=== PATIENT | female | born 1980 | race Caucasian/White ===

== ENCOUNTER → 2017-02-19 | Outpatient (CLI) | payer BC ==
[2017-02-19 10:39] LABS: ALBUMIN 3.8 GM/DL (3.2-5.2); ALBUMIN/GLOBULIN RATIO 1.19 (1.00-1.93); ALKALINE PHOSPHATASE 58 U/L (45-117); ALT/SGPT 28 U/L (12-78); ANION GAP 8 MEQ/L (8-16); AST/SGOT 25 U/L (15-37); BILIRUBIN,TOTAL 0.5 MG/DL (0.2-1.0); BLOOD UREA NITROGEN 15 MG/DL (7-18); CALCIUM LEVEL 8.9 MG/DL (8.5-10.1); CARBON DIOXIDE LEVEL 30 MEQ/L (21-32); CHLORIDE LEVEL 103 MEQ/L (98-107); CHOLESTEROL LEVEL 179 MG/DL (<200); CREATININE FOR GFR 0.78 MG/DL (0.55-1.02); GLOMERULAR FILTRATION RATE > 60.0 (>60); GLUCOSE, FASTING 83 MG/DL (70-105); POTASSIUM SERUM 4.5 MEQ/L (3.5-5.1); SODIUM LEVEL 141 MEQ/L (136-145); TRIGLYCERIDES LEVEL 77 MG/DL (<150)
--- NOTE | 2017-02-19 16:26 | REP ---
LUMBOSACRAL SPINE PARTIAL: 02/19/2017. Clinical history: Back pain. Findings: Three views including a coned lateral view of the lumbosacral junction are reviewed. The three views show disc space height only very minimally narrowed at L5-S1. There is no malalignment. The normal lordosis is slightly reduced. I see no compression deformity. The L4-5 disc level and above are maintained. No spondylolysis or spondylolisthesis seen. The AP view shows pedicles, spinous and transverse processes intact. Lower thoracic levels and visualized ribs intact. The SI joints show sclerosis on both sides suggesting osteitis condensans ilii , a benign finding in this age group. An IUD is seen in the central pelvis. Impression: 1. Minor degenerative disc changes at L5-S1 without compression deformity, destructive bone lesion or other acute bony finding. 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 Incidental note made of an IUD. Signed by Yamil Egan MD 02/19/2017 04:36 P
== END ==
LOC: M WUC 08:28
PROVIDERS: ATTEND Family Medicine Addiction Medicine
DX: Z00.00 Encounter for general adult medical examination without abnormal findings (principal); M51.37 Other intervertebral disc degeneration, lumbosacral region; M85.30 Osteitis condensans, unspecified site

== ENCOUNTER → 2017-02-25 | Outpatient (REF) | payer BC ==
[2017-02-25 12:13] LABS: BASO % 0.7 % (0.0-1.0); EOS # 0.1 K/mm3 (0.0-0.50); EOS % 1.4 % (0.0-3.0); LARGE UNSTAINED CELL # 0.1 K/mm3 (0.0-0.4); LARGE UNSTAINED CELL % 1.3 % (0.0-4.0); LYMPH # 1.8 K/mm3 (1.5-4.5); LYMPH % 31.5 % (24.0-44.0); MEAN CORPUSCULAR HEMOGLOBIN 29.8 pg (27.0-33.0); MEAN CORPUSCULAR HGB CONC 32.8 g/dl (32.0-36.5); MONO # 0.3 K/mm3 (0.0-0.8); MONO % 5.3 % (0.0-5.0); NEUTROPHILS # 3.3 K/mm3 (1.8-7.7); NEUTROPHILS % 59.9 % (36.0-66.0); PLATELET COUNT, AUTOMATED 336 k/mm3 (150-450); RED CELL DISTRIBUTION WIDTH 12.9 % (11.5-14.5); WHITE BLOOD COUNT 5.5 K/mm3 (4.0-10.0)
[2017-02-25 13:06] LABS: ERYTHROCYTE SEDIMENTATION RATE 33 mm/hr (0-20)
[2017-02-26 14:14] LABS: Lyme Disease IgG/IgM Antibodie <0.91 ISR (0.00-0.90); Lyme Disease IgM Ab Quantitati <0.80 index (0.00-0.79)
== END ==
LOC: M LABDRAW1 11:47
PROVIDERS: ATTEND Internal Medicine Endocrinology, Diabetes & Metabolism
DX: S83.92XA Sprain of unspecified site of left knee, initial encounter (principal); X58.XXXA Exposure to other specified factors, initial encounter; Y92.89 Other specified places as the place of occurrence of the external cause; Y93.89 Activity, other specified; Y99.8 Other external cause status

== ENCOUNTER → 2017-08-11 | Outpatient (REF) | payer BC ==
[2017-08-11 13:16] LABS: FOLATE 19.5 NG/ML (>5.4); VITAMIN B12 LEVEL 632 PG/ML (247-911)
[2017-08-11 13:18] LABS: BASO % 0.7 % (0.0-1.0); EOS # 0.1 10^3/uL (0.0-0.50); IMMATURE GRANULOCYTE % 0.2 % (0-0); LYMPH # 2.5 10^3/uL (1.5-4.5); LYMPH % 43.2 % (24.0-44.0); MEAN CORPUSCULAR HEMOGLOBIN 29.6 pg (27.0-33.0); MEAN CORPUSCULAR HGB CONC 33.1 g/dl (32.0-36.5); MEAN CORPUSCULAR VOLUME 89.5 fl (80.0-96.0); MONO # 0.4 10^3/uL (0.0-0.8); MONO % 6.9 % (0.0-5.0); NEUTROPHILS # 2.8 10^3/uL (1.8-7.7); RED CELL DISTRIBUTION WIDTH 12.9 % (11.5-14.5); WHITE BLOOD COUNT 5.8 10^3/uL (4.0-10.0)
[2017-08-11 13:25] LABS: INR 1.02
[2017-08-11 13:27] LABS: ALBUMIN 3.7 GM/DL (3.2-5.2); ALBUMIN/GLOBULIN RATIO 1.16 (1.00-1.93); ALKALINE PHOSPHATASE 54 U/L (45-117); ALT/SGPT 26 U/L (12-78); ANION GAP 8 MEQ/L (8-16); AST/SGOT 20 U/L (15-37); BILIRUBIN,TOTAL 0.6 MG/DL (0.2-1.0); BLOOD UREA NITROGEN 11 MG/DL (7-18); CALCIUM LEVEL 8.5 MG/DL (8.5-10.1); CARBON DIOXIDE LEVEL 25 MEQ/L (21-32); CHLORIDE LEVEL 106 MEQ/L (98-107); CREATININE FOR GFR 0.61 MG/DL (0.55-1.02); FERRITIN 191 NG/ML (8-252); FREE T4 1.23 NG/DL (0.76-1.46); GLOMERULAR FILTRATION RATE > 60.0 (>60); GLUCOSE, FASTING 88 MG/DL (70-105); POTASSIUM SERUM 3.9 MEQ/L (3.5-5.1); SODIUM LEVEL 139 MEQ/L (136-145); TOTAL PROTEIN 6.9 GM/DL (6.4-8.2)
[2017-08-12 12:47] LABS: ALBUMIN 4.13 GM/DL (3.29-5.55); ALBUMIN % 59.8 % (55.8-66.1); GAMMA GLOBULIN % 12.1 % (11.1-18.8)
[2017-08-13 14:15] LABS: F8 ACTIVITY FOR F8 PANEL 97 % (57-163); F8 ACTIVITY vWB FOR F8 PANEL 78 % (50-200); F8 ANTIGEN FOR F8 PANEL 105 % (50-200); INTERPRETATION: Note (.)
[2017-08-17 00:06] LABS: Lyme Disease IgG/IgM Antibodie <0.91 ISR (0.00-0.90); Lyme Disease IgM Ab Quantitati <0.80 index (0.00-0.79); vWF Collagen Binding Act.** 99 % (.)
== END ==
LOC: M LABDRAW1 10:29
PROVIDERS: ATTEND Physician Assistant Medical
DX: R53.83 Other fatigue (principal); M62.81 Muscle weakness (generalized); D69.1 Qualitative platelet defects

== ENCOUNTER → 2018-03-17 | Outpatient (CLI) | payer BC | LOC: M PAIN 10:00 | DX: M53.3 Sacrococcygeal disorders, not elsewhere classified (principal); M54.41 Lumbago with sciatica, right side; G89.29 Other chronic pain; J45.909 Unspecified asthma, uncomplicated; E07.9 Disorder of thyroid, unspecified; Z79.899 Other long term (current) drug therapy; Z88.0 Allergy status to penicillin; Z88.2 Allergy status to sulfonamides; Z88.5 Allergy status to narcotic agent | CPT/HCPCS: G0463 ==

== ENCOUNTER → 2018-03-30 | Outpatient (CLI) | payer BC | LOC: M RAD 08:09 | DX: M53.3 Sacrococcygeal disorders, not elsewhere classified (principal); M51.26 Other intervertebral disc displacement, lumbar region | CPT/HCPCS: 72148 ==

== ENCOUNTER → 2018-04-21 | Outpatient (CLI) | payer BC | LOC: M PAIN 08:45 | DX: M51.27 Other intervertebral disc displacement, lumbosacral region (principal); M54.17 Radiculopathy, lumbosacral region; G89.29 Other chronic pain; J45.909 Unspecified asthma, uncomplicated; Z79.899 Other long term (current) drug therapy; Z88.0 Allergy status to penicillin; Z88.2 Allergy status to sulfonamides; Z88.5 Allergy status to narcotic agent | CPT/HCPCS: G0463 ==

== ENCOUNTER → 2018-04-25 | Outpatient (REF) | payer BC | LOC: M LAB REF 18:38 | DX: Z12.4 Encounter for screening for malignant neoplasm of cervix (principal) | CPT/HCPCS: G0123 ==

== ENCOUNTER → 2018-05-17 | Outpatient (CLI) | payer BC ==
[~2018-05-17] MED LIST: ISOVUE-M 300 61% 15ML VIAL (Q9967) As Ordered; LIDOCAINE 1% SDV INJ 30 ML VIAL As Ordered; diazePAM 5 MG TAB As Ordered; methylPREDNISolone SUSP 40 MG/ML (DEPO-medrol) VIAL (J1030) As Ordered; oxyCODONE 5MG TAB As Ordered
== END ==
LOC: M PAIN 09:00
DX: M51.17 Intervertebral disc disorders with radiculopathy, lumbosacral region (principal); G89.29 Other chronic pain; J45.909 Unspecified asthma, uncomplicated; E07.9 Disorder of thyroid, unspecified; Z79.899 Other long term (current) drug therapy; Z88.2 Allergy status to sulfonamides; Z88.5 Allergy status to narcotic agent
CPT/HCPCS: J1030

== ENCOUNTER → 2018-06-07 | Outpatient (CLI) | payer BC | LOC: M PAIN 14:30 | DX: M51.27 Other intervertebral disc displacement, lumbosacral region (principal); M54.17 Radiculopathy, lumbosacral region; J45.909 Unspecified asthma, uncomplicated; Z79.899 Other long term (current) drug therapy; Z88.0 Allergy status to penicillin; Z88.5 Allergy status to narcotic agent; Z88.8 Allergy status to other drugs, medicaments and biological substances | CPT/HCPCS: G0463 ==

== ENCOUNTER → 2018-06-20 | Outpatient (CLI) | payer BC | LOC: M PAIN 10:15 | DX: G89.29 Other chronic pain (principal); M51.17 Intervertebral disc disorders with radiculopathy, lumbosacral region; J45.909 Unspecified asthma, uncomplicated; Z79.1 Long term (current) use of non-steroidal anti-inflammatories (NSAID); Z88.0 Allergy status to penicillin; Z88.2 Allergy status to sulfonamides; Z88.5 Allergy status to narcotic agent | CPT/HCPCS: J1030 ==

== ENCOUNTER → 2018-07-21 | Outpatient (CLI) | payer BC | LOC: M PAIN 09:30 | DX: M79.1 Myalgia (principal); M51.27 Other intervertebral disc displacement, lumbosacral region; M54.17 Radiculopathy, lumbosacral region; J45.909 Unspecified asthma, uncomplicated; E07.9 Disorder of thyroid, unspecified; Z79.899 Other long term (current) drug therapy; Z88.0 Allergy status to penicillin; Z88.2 Allergy status to sulfonamides; Z88.5 Allergy status to narcotic agent | CPT/HCPCS: G0463 ==

== ENCOUNTER → 2018-08-29 | Outpatient (CLI) | payer BC | LOC: M PAIN 10:00 | DX: M79.18 Myalgia, other site (principal); M51.27 Other intervertebral disc displacement, lumbosacral region; M54.17 Radiculopathy, lumbosacral region; J45.909 Unspecified asthma, uncomplicated; Z79.899 Other long term (current) drug therapy; Z88.0 Allergy status to penicillin; Z88.2 Allergy status to sulfonamides; Z88.5 Allergy status to narcotic agent | CPT/HCPCS: G0463 ==

== ENCOUNTER → 2018-08-30 | Outpatient (CLI) | payer BC | LOC: M PAIN 08:45 | DX: G89.29 Other chronic pain (principal); M51.16 Intervertebral disc disorders with radiculopathy, lumbar region; J45.909 Unspecified asthma, uncomplicated; Z79.899 Other long term (current) drug therapy; Z88.0 Allergy status to penicillin; Z88.2 Allergy status to sulfonamides; Z88.5 Allergy status to narcotic agent; Z86.39 Personal history of other endocrine, nutritional and metabolic disease | CPT/HCPCS: J1030 ==

== ENCOUNTER → 2018-08-31 | Outpatient (CLI) | payer BC | LOC: M PAIN 11:30 | DX: Z53.29 Procedure and treatment not carried out because of patient's decision for other reasons (principal) ==

== ENCOUNTER → 2018-09-15 | Outpatient (CLI) | payer BC | LOC: M PAIN 08:30 | DX: M79.18 Myalgia, other site (principal); M51.17 Intervertebral disc disorders with radiculopathy, lumbosacral region; J45.909 Unspecified asthma, uncomplicated; E07.9 Disorder of thyroid, unspecified; Z88.0 Allergy status to penicillin; Z88.2 Allergy status to sulfonamides; Z88.5 Allergy status to narcotic agent | CPT/HCPCS: G0463 ==

== ENCOUNTER → 2018-10-07 | Outpatient (REF) | payer BC ==
[2018-10-07 13:12] LABS: APPEARANCE, URINE HAZY (CLEAR); BACTERIA, URINE AUTO 2+ (NEGATIVE); BILIRUBIN, URINE AUTO NEGATIVE (NEGATIVE); BLOOD, URINE BLOOD 2+ (NEGATIVE); COLOR, URINE YELLOW (YELLOW); GLUCOSE, URINE (UA) AUTO NEGATIVE (NEGATIVE); KETONE, URINE AUTO 1+ mg/dL (NEGATIVE); LEUKOCYTE ESTERASE, URINE AUTO NEGATIVE (NEGATIVE); MUCUS, URINE SMALL (NEGATIVE); NITRITE, URINE AUTO NEGATIVE (NEGATIVE); PROTEIN, URINE AUTO NEGATIVE (NEGATIVE); RBC, URINE AUTO 7 /HPF (0-3); SPECIFIC GRAVITY URINE AUTO 1.019 (1.002-1.035); SQUAMOUS EPITHELIAL CELL UR AU 4 /HPF (0-6); UROBILINOGEN, URINE AUTO 0.2 mg/dL (0.0-2.0); WBC, URINE AUTO 1 /HPF (0-3)
== END ==
LOC: M SFHCPLAZ 12:13
DX: N31.9 Neuromuscular dysfunction of bladder, unspecified (principal)
CPT/HCPCS: 81001

== ENCOUNTER → 2018-11-15 | Outpatient (CLI) | payer BC ==
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
== END ==
LOC: M PAIN 10:00
PROVIDERS: ATTEND Nurse Practitioner Family
DX: M79.10 Myalgia, unspecified site (principal); M51.27 Other intervertebral disc displacement, lumbosacral region; M54.17 Radiculopathy, lumbosacral region; G89.29 Other chronic pain; J45.909 Unspecified asthma, uncomplicated; E66.01 Morbid (severe) obesity due to excess calories; Z79.899 Other long term (current) drug therapy; Z79.891 Long term (current) use of opiate analgesic; Z68.36 Body mass index [BMI] 36.0-36.9, adult; Z88.0 Allergy status to penicillin; Z88.2 Allergy status to sulfonamides; Z88.5 Allergy status to narcotic agent

== ENCOUNTER → 2018-11-24 | Outpatient (CLI) | payer BC ==
[~2018-11-24] MED LIST changes: -ISOVUE-M 300 61% 15ML VIAL (Q9967) As Ordered; +ISOVUE-M 300 61% 15ML VIAL (Q9967) As Ordered ONE; -LIDOCAINE 1% SDV INJ 30 ML VIAL As Ordered; +LIDOCAINE 1% SDV INJ 30 ML VIAL As Ordered ONE; -diazePAM 5 MG TAB As Ordered; +diazePAM 5 MG TAB As Ordered ONE; -methylPREDNISolone SUSP 40 MG/ML (DEPO-medrol) VIAL (J1030) As Ordered; +methylPREDNISolone SUSP 40 MG/ML (DEPO-medrol) VIAL (J1030) As Ordered ONE; -oxyCODONE 5MG TAB As Ordered; +oxyCODONE 5MG TAB As Ordered ONE
--- NOTE | 2018-11-24 12:52 | REP ---
Partial lumbar spine series: Three views . History: Injection procedure for pain. Eight seconds of fluoroscopy time is reported. Findings: A sequence of three fluoroscopically obtained last image hold procedural spot radiographs of the lumbar spine document needle position and contrast injection associated with injection procedure. Electronically Signed by Raymond Crooks MD 11/24/2018 12:44 P
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
== END ==
LOC: M PAIN 09:00
PROVIDERS: ATTEND Anesthesiology
DX: G89.29 Other chronic pain (principal); M51.17 Intervertebral disc disorders with radiculopathy, lumbosacral region; J45.909 Unspecified asthma, uncomplicated; Z79.891 Long term (current) use of opiate analgesic; Z79.899 Other long term (current) drug therapy; Z88.0 Allergy status to penicillin; Z88.2 Allergy status to sulfonamides; Z88.5 Allergy status to narcotic agent
CPT/HCPCS: 62323; J1030; Q9967

== ENCOUNTER → 2019-01-12 | Outpatient (CLI) | payer BC ==
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
== END ==
LOC: M PAIN 10:45
PROVIDERS: ATTEND Nurse Practitioner Family
DX: M79.18 Myalgia, other site (principal); M51.27 Other intervertebral disc displacement, lumbosacral region; M54.17 Radiculopathy, lumbosacral region; J45.909 Unspecified asthma, uncomplicated; Z79.899 Other long term (current) drug therapy; Z88.0 Allergy status to penicillin; Z88.2 Allergy status to sulfonamides; Z88.5 Allergy status to narcotic agent

== ENCOUNTER → 2019-01-30 | Outpatient (CLI) | payer BC ==
[~2019-01-30] MED LIST changes: +BUPIVACAINE HCL 0.25% 10 ML VIAL As Ordered ONE; +BUPIVACAINE HCL 0.25% 30 ML VIAL As Ordered ONE; -ISOVUE-M 300 61% 15ML VIAL (Q9967) As Ordered ONE; -LIDOCAINE 1% SDV INJ 30 ML VIAL As Ordered ONE; +TRIAMCINOLONE ACETONIDE SUSP 40 MG/ML VIAL (J3301) As Ordered ONE; -methylPREDNISolone SUSP 40 MG/ML (DEPO-medrol) VIAL (J1030) As Ordered ONE
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
== END ==
LOC: M PAIN 09:15
PROVIDERS: ATTEND Anesthesiology
DX: M79.18 Myalgia, other site (principal); Z79.891 Long term (current) use of opiate analgesic; Z88.5 Allergy status to narcotic agent; Z88.0 Allergy status to penicillin; Z88.2 Allergy status to sulfonamides
CPT/HCPCS: 20552; J3301

== ENCOUNTER → 2019-02-13 | Outpatient (CLI) | payer BC ==
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
== END ==
LOC: M PAIN 14:30
PROVIDERS: ATTEND Anesthesiology
DX: M51.16 Intervertebral disc disorders with radiculopathy, lumbar region (principal); G89.29 Other chronic pain; J45.909 Unspecified asthma, uncomplicated; Z79.891 Long term (current) use of opiate analgesic; Z79.899 Other long term (current) drug therapy; Z88.0 Allergy status to penicillin; Z88.2 Allergy status to sulfonamides; Z88.5 Allergy status to narcotic agent

== ENCOUNTER → 2019-03-01 | Outpatient (CLI) | payer BC ==
[~2019-03-01] MED LIST changes: -BUPIVACAINE HCL 0.25% 10 ML VIAL As Ordered ONE; -BUPIVACAINE HCL 0.25% 30 ML VIAL As Ordered ONE; +HYDR-3713; -TRIAMCINOLONE ACETONIDE SUSP 40 MG/ML VIAL (J3301) As Ordered ONE; -diazePAM 5 MG TAB As Ordered ONE; -oxyCODONE 5MG TAB As Ordered ONE
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
== END ==
LOC: M PAIN 10:15
PROVIDERS: ATTEND Nurse Practitioner Family
DX: M46.1 Sacroiliitis, not elsewhere classified (principal); M51.27 Other intervertebral disc displacement, lumbosacral region; G89.29 Other chronic pain; J45.909 Unspecified asthma, uncomplicated; Z88.0 Allergy status to penicillin; Z88.2 Allergy status to sulfonamides; Z88.5 Allergy status to narcotic agent; Z79.891 Long term (current) use of opiate analgesic; Z79.899 Other long term (current) drug therapy

== ENCOUNTER 2019-03-09 16:19 | Emergency (ER) | payer BC ==
[~2019-03-09] VITALS: Ht 160 cm; Wt 89.1 kg
[2019-03-09] MEDS ORDERED: HYDR-3713 (16:27)
[2019-03-09] MEDS ORDERED: PROMETHAZINE INJ 25 MG/ML VIAL (J2550) IM ONE (17:00)
[2019-03-09] MEDS ORDERED: diazePAM 10 MG TAB PO ONE (17:00)
[2019-03-09] MEDS ORDERED: KETOROLAC 60 MG/2 ML VIAL (J1885) IM ONE (17:00)
[2019-03-09 18:28] VITALS: BP 138/75
== END 2019-03-09 18:41 | disposition home or self-care (01) ==
LOC: M ED 16:19
DX: M54.5 Low back pain (principal); Z88.0 Allergy status to penicillin; Z88.2 Allergy status to sulfonamides; Z88.5 Allergy status to narcotic agent
CPT/HCPCS: 96372; 99283; J1885

== ENCOUNTER → 2019-03-09 | Outpatient (CLI) | payer BC ==
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
== END ==
LOC: M PAIN 14:30
PROVIDERS: ATTEND Nurse Practitioner Family
DX: M46.1 Sacroiliitis, not elsewhere classified (principal); M51.27 Other intervertebral disc displacement, lumbosacral region; J45.909 Unspecified asthma, uncomplicated; Z88.0 Allergy status to penicillin; Z88.2 Allergy status to sulfonamides; Z88.5 Allergy status to narcotic agent; Z79.891 Long term (current) use of opiate analgesic; Z79.899 Other long term (current) drug therapy

== ENCOUNTER → 2019-03-23 | Outpatient (CLI) | payer BC ==
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
== END ==
LOC: M PAIN 09:00
PROVIDERS: ATTEND Nurse Practitioner Family
DX: M46.1 Sacroiliitis, not elsewhere classified (principal); G89.29 Other chronic pain; J45.909 Unspecified asthma, uncomplicated; Z79.891 Long term (current) use of opiate analgesic; Z79.899 Other long term (current) drug therapy; Z88.0 Allergy status to penicillin; Z88.2 Allergy status to sulfonamides; Z88.5 Allergy status to narcotic agent

== ENCOUNTER → 2019-03-24 | Outpatient (CLI) | payer BC ==
--- NOTE | 2019-03-24 16:20 | REP ---
MR THORACIC SPINE WITHOUT CONTRAST: HISTORY: Sacroiliitis. A small central disc protrusion is present at the T7-8 level. There is minimal effacement of the thecal sac without spinal cord compression. The T7 neural foramina are patent. A small left paracentral disc protrusion is present at the T8-9 level. There is minimal effacement of the thecal sac without spinal cord compression. The T8 neural foramina are patent. A small left paracentral disc protrusion is present at the T9-10 level. There is minimal effacement of the thecal sac without spinal cord compression. The T9 neural foramina are patent. A small left paracentral disc protrusion is present at the T11-12 level. There is minimal effacement of the thecal sac without spinal cord compression. The T11 neural foramina are patent. There is no other disc bulge or herniation. The remaining neural foramina are patent. The spinal cord is normal in signal intensity. Normal signal intensity is present in the thoracic vertebral bodies. Anterior osteophytes are present in the lower thoracic spine. IMPRESSION: Small disc protrusion at the T7-8 through T9-10 and T11-12 levels without spinal cord compression. Electronically Signed by Jim Lopez MD 03/24/2019 04:21 P
--- NOTE | 2019-03-24 16:38 | REP ---
MR LUMBAR SPINE WITHOUT CONTRAST: HISTORY: Back pain. COMPARISON: 03/30/2018. Decreased signal intensity on T2-weighted images is present in the L1-2 and L5-S1 intervertebral discs. The L5-S1 intervertebral disc is decreased in height. These findings are consistent with disc degeneration. There is no disc bulge or herniation at the L1-2 level and L2-3 levels. The nerves exit the neural foramina without compression. A diffuse disc bulge is present at the L3-4 level. There is minimal compression of the thecal sac. There is hypertrophy of ligamenta flava and posterior articulating facets. The L3 nerves exit the neural foramina without compression. A diffuse disc bulge is present at the L4-5 level. There is minimal compression of the thecal sac. There is hypertrophy of the ligamenta flava and posterior articulating facets. The L4 nerves exit the neural foramina without compression. A diffuse disc bulge and small disc protrusion central and eccentric to the left are present at the L5-S1 level. There is no thecal sac compression. The disc protrusion abuts the left S1 nerve. There is hypertrophy of the posterior articulating facets. The L5 nerves exit the neural foramina without compression. The left L5 and S1 nerves are conjoined. The conus medullaris is normal in appearance terminating at the level of the T12-L1 intervertebral discs . Normal signal intensity is present in the lumbar vertebral bodies. IMPRESSION: 1. Diffuse disc bulges at the L3-4 and L4-5 levels with minimal thecal sac compression. 2. Diffuse disc bulge and small disc protrusion at the L5-S1 level. The disc protrusion abuts the left S1 nerve. There is no significant change compared to the previous study. Electronically Signed by Jim Lopez MD 03/24/2019 04:40 P
== END ==
LOC: M PLARAD 11:13
PROVIDERS: ATTEND Nurse Practitioner Family
DX: M51.26 Other intervertebral disc displacement, lumbar region (principal); M51.27 Other intervertebral disc displacement, lumbosacral region; M46.1 Sacroiliitis, not elsewhere classified; M51.24 Other intervertebral disc displacement, thoracic region

== ENCOUNTER → 2019-04-04 | Outpatient (CLI) | payer BC ==
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
== END ==
LOC: M PAIN 11:30
PROVIDERS: ATTEND Nurse Practitioner Family
DX: M51.17 Intervertebral disc disorders with radiculopathy, lumbosacral region (principal); G89.29 Other chronic pain; J45.909 Unspecified asthma, uncomplicated; Z88.0 Allergy status to penicillin; Z88.2 Allergy status to sulfonamides; Z88.5 Allergy status to narcotic agent; Z79.899 Other long term (current) drug therapy

== ENCOUNTER → 2019-05-01 | Outpatient (CLI) | payer BC ==
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
== END ==
LOC: M PAIN 15:45
PROVIDERS: ATTEND Anesthesiology
DX: M51.16 Intervertebral disc disorders with radiculopathy, lumbar region (principal); J45.909 Unspecified asthma, uncomplicated; E07.9 Disorder of thyroid, unspecified; Z79.899 Other long term (current) drug therapy; Z88.0 Allergy status to penicillin; Z88.2 Allergy status to sulfonamides; Z88.5 Allergy status to narcotic agent

== ENCOUNTER → 2019-06-02 | Outpatient (CLI) | payer BC ==
[~2019-06-02] MED LIST changes: +CARI1TAB7 PO; -HYDR-3713; +HYDR-3713 PO
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
== END ==
LOC: M PAIN 08:30
PROVIDERS: ATTEND Anesthesiology
DX: M51.16 Intervertebral disc disorders with radiculopathy, lumbar region (principal); G89.29 Other chronic pain; J45.909 Unspecified asthma, uncomplicated; Z88.0 Allergy status to penicillin; Z88.2 Allergy status to sulfonamides; Z88.5 Allergy status to narcotic agent; Z79.899 Other long term (current) drug therapy

== ENCOUNTER → 2019-06-09 | Outpatient (CLI) | payer BC ==
[2019-06-09 09:42] LABS: BLOOD UREA NITROGEN 15 MG/DL (7-18); CALCIUM LEVEL 8.6 MG/DL (8.5-10.1); CARBON DIOXIDE LEVEL 29 MEQ/L (21-32); CHLORIDE LEVEL 108 MEQ/L (98-107); CHOLESTEROL LEVEL 195 MG/DL (<200); CHOLESTEROL RISK RATIO 3.611 (<5); CREATININE FOR GFR 0.74 MG/DL (0.55-1.30); GLOMERULAR FILTRATION RATE > 60.0 (>60); GLUCOSE, FASTING 83 MG/DL (70-100); HDL CHOLESTEROL 54 MG/DL (>40); LDL CHOLESTEROL 129 MG/DL (<100); NON-HDL-C 141 MG/DL; POTASSIUM SERUM 4.3 MEQ/L (3.5-5.1); SODIUM LEVEL 142 MEQ/L (136-145); TRIGLYCERIDES LEVEL 61 MG/DL (<150)
== END ==
LOC: M WUC 08:13
PROVIDERS: ATTEND Obstetrics & Gynecology
DX: Z13.220 Encounter for screening for lipoid disorders (principal); Z13.1 Encounter for screening for diabetes mellitus

== ENCOUNTER 2019-06-19 05:47 | Day surgery (SDC) | payer BC ==
[2019-06-19] VITALS (9 sets, daily range): BP systolic 114–131; BP diastolic 56–70
[~2019-06-19] VITALS: Ht 160 cm; Wt 89.8 kg
[2019-06-19] MEDS ORDERED: CLINDAMYCIN 600 MG in APPROPRIATE DILUENT 1 EA IV ONE (06:00)
[2019-06-19] MEDS ORDERED: LR 1,000 ML IV ONE (06:00)
[2019-06-19 06:44] LABS: URINE PREG TEST NEGATIVE (NEGATIVE)
[2019-06-19] MEDS ORDERED: BUPIVACAINE HCL 0.25% 30 ML VIAL As Ordered ONE (06:50)
[2019-06-19] MEDS ORDERED: ISOVUE-300 61% 50ML VIAL (Q9967) As Ordered ONE (06:51)
[2019-06-19] MEDS ORDERED: LIDOCAINE W/EPINEPHRINE 1% 20ML VIAL As Ordered ONE ×2 (06:51→08:26)
[2019-06-19] MEDS ORDERED: MIDAZOLAM INJ 2 MG/2 ML VIAL (J2250) As Ordered ONE ×2 (07:06→08:23)
[2019-06-19] MEDS ORDERED: fentaNYL 100 MCG/2 ML INJECTION (J3010) As Ordered ONE (07:06)
[2019-06-19] MEDS ORDERED: PROPOFOL 200 MG/20 ML VIAL As Ordered ONE (07:11)
[2019-06-19] MEDS ORDERED: LIDOCAINE 1% MDV 20ML VIAL As Ordered ONE (08:24)
[2019-06-19] MEDS ORDERED: ONDANSETRON 4MG/2ML VIAL (J2405) As Ordered ONE (08:39)
[2019-06-19] MEDS ORDERED: CARISOPRODOL 350 MG TAB PO PRN (10:30)
[2019-06-19] MEDS ORDERED: SLF 3 ML SYR IV PRN (10:30)
--- NOTE | 2019-06-19 10:35 | REP ---
PARTIAL THORACIC SPINE SERIES: Two views. HISTORY: Lumbar disc disorder with radiculopathy. 5 minutes 5 seconds of fluoroscopy time is reported. FINDINGS: A sequence of two last image hold fluoroscopically obtained spot radiographs of the thoracic spine document dorsal column stimulator lead position. Electronically Signed by Raymond Crooks MD 06/19/2019 04:47 P
[2019-06-19] MEDS: oxyCODONE 5MG TAB PO PRN ×2 (12:44→20:22)
[2019-06-19] MEDS: CLINDAMYCIN 600 MG in APPROPRIATE DILUENT 1 EA IV SCH ×2 (15:32→23:26)
[2019-06-19] MEDS: SLF 3 ML SYR IV SCH ×2 (15:32→21:52)
--- NOTE | 2019-06-19 16:35 | CR.PDOC ---
General Date of Consultation: Jun 19, 2019 Referring Provider: SWATHI MYERS MD Attending Physician: Maximus Larry MD Consultation REASON FOR CONSULTATION/CHIEF COMPLAINT: . Management of medical comorbidities. HISTORY OF PRESENT ILLNESS: . 38-year-old female with chronic back pain admitted under the pain management service following a dorsal column stimulator trial. The hospitalist service has been consulted for management of the patient's medical comorbidities. She denies any complaints of fevers, chills, chest pain, abdominal pain, or any nausea/vomiting/diarrhea. ALLERGIES: Please see below. HOME MEDICATIONS: Please see below. SOCIAL HISTORY: Patient denies any alcohol, tobacco, or illicit drug use. REVIEW OF SYSTEMS: 10 point review of systems negative unless otherwise specified in HPI. PHYSICAL EXAMINATION: VITAL SIGNS: Please see below. GENERAL APPEARANCE: . Awake, alert, in no acute distress HEENT: . Normocephalic, atraumatic RESPIRATORY: . Clear to auscultation bilaterally CARDIOVASCULAR: . Normal rate, normal S1, S2 ABDOMEN: . Soft, nontender, nondistended EXTREMITIES: . No erythema, no tenderness LABORATORY DATA: Please see below. ASSESSMENT/PLAN: Chronic back pain status post dorsal column stimulator placement Pain management as per Dr. Calixto Vital Signs/I&O Vital Signs Date Time Temp Pulse Resp B/P (MAP) Pulse Ox O2 Delivery O2 Flow Rate FiO2 06/19/19 15:00 98.1 77 18 131/66 (87) 97 Laboratory Data Labs 24H Laboratory Tests 2 06/19/19 06:33: Urine Test NEGATIVE Allergies Coded Allergies: Penicillins (Verified Allergy, Severe, anaphylaxis, 06/19/19) Sulfa (Sulfonamide Antibiotics) (Verified Allergy, Severe, anaphylaxis, 06/19/19) morphine (Verified Adverse Reaction, Unknown, severe n/v, 06/19/19) Home Medications Scheduled Carisoprodol (Carisoprodol) 350 Mg Tablet, 175 TAB PO Q8H, (Reported) Hydrocodone/Acetaminophen (Hydrocodone-Acetamin 5-325 mg) 1 Each Tablet, 1 TAB PO TID, (Reported) SWATHI MYERS MD Jun 19, 2019 16:35
[2019-06-20 04:08] VITALS: BP 97/53
[2019-06-20] MEDS: SLF 3 ML SYR IV SCH (05:37)
[2019-06-20 07:09] VITALS: BP 132/62
[2019-06-20] MEDS: oxyCODONE 5MG TAB PO PRN (08:43)
--- NOTE | 2019-06-29 22:05 | ROPAIN ---
DATE OF PROCEDURE: 06/19/2019 PREOPERATIVE DIAGNOSIS: Lumbar disk disorder with radiculopathy. POSTOPERATIVE DIAGNOSIS: Lumbar disk disorder with radiculopathy. PROCEDURE: Spinal column stimulator trial ANESTHESIA: Local with monitored anesthesia care SURGEON : Maximus Calixto MD PREOPERATIVE NOTE: Ms. Dunham is a 38-year-old female patient with history of chronic low back and leg pain. She has been receiving intervention management on medication; but unfortunately, the pain has persists. The patient has expressed that she wants a spinal column stimulator trial. She is sent to the operating room today for such purpose. The patient denies fever, chills, new changes in her urinary and bowel control. PROCEDURE NOTE: Consent was reviewed with the patient. She was taken to the procedure room. She received clindamycin 600 mg IV. The thoracolumbar area was cleaned with Betadine solution and draped aseptically sterile conditions. Anesthesia was provided by the anesthesia providers with local and monitor anesthesia care. After the patient was draped, procedure was done under sterile standard techniques. First target was elected at the intraluminal level of T12-L1. The epidural Tuohy needle was advanced until the epidural space was reached, 7 cm deep into the skin by the loss of resistant technique. Then a 16 contact lead from [employer] was advanced through the posteromedial aspect of the epidural space and placed at the level of T6 to T8. A decision was made to place a second lead. Target was selected at this time by L1, L2. Local anesthesia was used to numb the skin and the tissue below it. A second Touhy needle was advanced until the epidural space was reached again 7 cm deep into the skin by the loss of resistant technique. A second 16 contact lead from [employer] was advanced at the posteromedial aspect of epidural space until we reached the level again of T6 to T8, both leads were placed parallel. Extension cables were attached to the computer system [employer]. I started to do programming. It was a simple program. It lasted like half an hour where I changed to contact use, position of the leads, voltage used. The final position where the patient was having appropriate stimulation was at T6, T7 and T8, AP and lateral views were taken and kept by the electronic medical records for future reference. I removed the extension cables, I removed the stylets. I safely put the leads attached to the patient's skin with Steri-strip and Opsite Tegaderm The patient was sent to the recovery room. Trial is going to start today. There were no complications.
== END 2019-06-20 08:50 | disposition home or self-care (01) ==
LOC: M SDC 05:47 → M PED 10:20 → M SDC 06-20 08:50
PROVIDERS: ATTEND Anesthesiology
DX: M51.16 Intervertebral disc disorders with radiculopathy, lumbar region (principal); J45.909 Unspecified asthma, uncomplicated; Z79.899 Other long term (current) drug therapy; Z88.0 Allergy status to penicillin; Z88.2 Allergy status to sulfonamides; Z88.8 Allergy status to other drugs, medicaments and biological substances
CPT/HCPCS: 63650; 76000; 84703; 96374; 96376; C1778; J2250; J2405; J3010

== ENCOUNTER → 2019-06-22 | Outpatient (CLI) | payer BC ==
--- NOTE | 2019-06-22 16:56 | REP ---
Thoracolumbar spine: Two views: History: Dorsal column stimulator try. Lead pole. 5.8 seconds of fluoroscopy time reported. Findings: A sequence of two last image hold fluoroscopically obtained spot radiographs of the lower thoracic spine document dorsal column stimulator lead position. Electronically Signed by Raymond Crooks MD 06/22/2019 05:42 P
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
== END ==
LOC: M PAIN 12:00
PROVIDERS: ATTEND Anesthesiology
DX: M51.16 Intervertebral disc disorders with radiculopathy, lumbar region (principal); Z79.891 Long term (current) use of opiate analgesic; Z79.899 Other long term (current) drug therapy; Z88.0 Allergy status to penicillin; Z88.2 Allergy status to sulfonamides; Z88.5 Allergy status to narcotic agent

== ENCOUNTER → 2019-07-20 | Outpatient (CLI) | payer BC ==
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
== END ==
LOC: M PAIN 15:15
PROVIDERS: ATTEND Anesthesiology
DX: M51.16 Intervertebral disc disorders with radiculopathy, lumbar region (principal); J45.909 Unspecified asthma, uncomplicated; E07.9 Disorder of thyroid, unspecified; Z79.891 Long term (current) use of opiate analgesic; Z79.899 Other long term (current) drug therapy; Z88.2 Allergy status to sulfonamides; Z88.5 Allergy status to narcotic agent; Z88.0 Allergy status to penicillin

== ENCOUNTER → 2019-07-26 | Outpatient (CLI) | payer BC | LOC: M PAIN 10:45 | PROVIDERS: ATTEND Nurse Practitioner Family | DX: M51.17 Intervertebral disc disorders with radiculopathy, lumbosacral region (principal); G89.29 Other chronic pain; J45.909 Unspecified asthma, uncomplicated; Z88.0 Allergy status to penicillin; Z88.2 Allergy status to sulfonamides; Z88.5 Allergy status to narcotic agent; Z79.899 Other long term (current) drug therapy ==

== ENCOUNTER → 2019-09-13 | Outpatient (CLI) | payer BC ==
[~2019-09-13] MED LIST changes: +ALEV220T22 PO
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
== END ==
LOC: M PAIN 09:00
PROVIDERS: ATTEND Anesthesiology
DX: M51.17 Intervertebral disc disorders with radiculopathy, lumbosacral region (principal); G89.29 Other chronic pain; J45.909 Unspecified asthma, uncomplicated; Z88.0 Allergy status to penicillin; Z88.2 Allergy status to sulfonamides; Z88.5 Allergy status to narcotic agent; Z79.899 Other long term (current) drug therapy

== ENCOUNTER → 2019-09-21 | Outpatient (CLI) | payer BC ==
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
== END ==
LOC: M PAIN 08:45
PROVIDERS: ATTEND Anesthesiology
DX: M51.17 Intervertebral disc disorders with radiculopathy, lumbosacral region (principal)

== ENCOUNTER 2019-09-25 07:54 | Day surgery (SDC) | payer BC ==
[~2019-09-25] VITALS: Ht 160 cm; Wt 83.5 kg
[2019-09-25] VITALS (8 sets, daily range): BP systolic 107–136; BP diastolic 51–71
[~2019-09-25 07:54] MED LIST changes: +BACITRACIN PWD 50,000 UNITS VIAL As Ordered ONE; +CLINDAMYCIN 600 MG in IV 1 EA IV ONE; +LIDOCAINE 1% MDV 20ML VIAL As Ordered ONE; +LIDOCAINE 2% INJ 100 MG/5 ML SDV (FOR ANES.) As Ordered ONE; +LR 1,000 ML IV SCH; +MIDAZOLAM INJ 2 MG/2 ML VIAL (J2250) As Ordered ONE; +ONDANSETRON 4MG/2ML VIAL (J2405) As Ordered ONE; +PROPOFOL 200 MG/20 ML VIAL As Ordered ONE; +THROMBIN SOLN 20,000 UNITS KIT As Ordered ONE; +fentaNYL 100 MCG/2 ML INJECTION (J3010) As Ordered ONE
[2019-09-25] MEDS ORDERED: KETAMINE HCL 200 MG/20 ML VIAL As Ordered ONE (09:18)
[2019-09-25] MEDS ORDERED: BUPIVACAINE HCL 0.25% 10 ML VIAL As Ordered ONE (09:59)
[2019-09-25] MEDS ORDERED: BUPIVACAINE HCL 0.25% 30 ML VIAL As Ordered ONE (10:00)
[2019-09-25] MEDS ORDERED: LIDOCAINE W/EPINEPHRINE 1% 20ML VIAL As Ordered ONE ×2 (10:00→11:01)
[2019-09-25] MEDS ORDERED: PROPOFOL 200 MG/20 ML VIAL As Ordered ONE ×8 (10:36→14:30)
[2019-09-25] MEDS ORDERED: ACETAMINOPHEN 1000MG 100ML IV BTL (OFIRMEV) (J0131 PER 10MG) As Ordered ONE (10:40)
[2019-09-25] MEDS ORDERED: fentaNYL 100 MCG/2 ML INJECTION (J3010) As Ordered ONE ×2 (11:09→12:31)
[2019-09-25] MEDS ORDERED: CLINDAMYCIN INJ 900MG/6ML VIAL As Ordered ONE (13:22)
[2019-09-25] MEDS ORDERED: ONDANSETRON 4MG/2ML VIAL (J2405) As Ordered ONE (13:22)
[2019-09-25] MEDS ORDERED: dexameTHASONE 4 MG/ML 1ML VIAL (J1100) As Ordered ONE (13:26)
--- NOTE | 2019-09-25 14:09 | REP ---
Five fluoroscopic images new: 09/25/2019. Indication: Operative guidance. Comparison: 06/22/2019. Findings: A series of fluoroscopic images demonstrates interval insertion of a spinal cord stimulator with the distal leads extending from the inferior aspect of T6 to the T8/T9 intervertebral disc level. Please see operative report for additional details. Impression: Fluoroscopy provided for intraoperative guidance. Fluoroscopy time: 12:51, dose 391,85 mGy Electronically Signed by Nathan Mcgee DO 09/25/2019 02:01 P
[2019-09-25] MEDS ORDERED: HYDROmorphone HCL 2 MG/ML 1ML VIAL (J1170) As Ordered ONE (14:54)
[2019-09-25] MEDS ORDERED: CLINDAMYCIN 600 MG in IV 1 EA IV ONE ×4 (15:30)
[2019-09-25] MEDS ORDERED: oxyCODONE 5MG TAB PO PRN ×2 (15:30→16:00)
[2019-09-25] MEDS ORDERED: METOCLOPRAMIDE INJ 10MG/2ML VIAL (J2765) As Ordered ONE (15:47)
[2019-09-25] MEDS ORDERED: SCOPOLAMINE 1MG TRANSDERMAL PATCH As Ordered ONE (15:47)
[2019-09-25] MEDS ORDERED: LR 1,000 ML IV SCH (16:00)
[2019-09-25] MEDS ORDERED: ONDANSETRON 4MG/2ML VIAL (J2405) IV PRN (16:00)
[2019-09-25] MEDS ORDERED: fentaNYL 100 MCG/2 ML INJECTION (J3010) IV PRN (16:00)
[2019-09-25] MEDS ORDERED: SCOPOLAMINE 1MG TRANSDERMAL PATCH TOP ONE (16:00)
[2019-09-25] MEDS ORDERED: METOCLOPRAMIDE INJ 10MG/2ML VIAL (J2765) IV PRN (16:00)
--- NOTE | 2019-09-25 17:45 | CR.PDOC ---
General Date of Consultation: Sep 25, 2019 Consultation CHIEF COMPLAINT: back pain HISTORY OF PRESENT ILLNESS: Patient is 39F with PMH chronic back pain 2/2 OA, spinal stenosis and herniated disc being observed overnight post dorsal spinal cord stimulator placement by pain management. She has had ongoing back pain for an extended period of time leading to significant impairment at home. She has no other significant PMH apart from known LBBB and takes opiates at home for back pain. She is currently comfortable but reports some back discomfort with movement. Denies other compla ints including chest pain, SOB, fever, chills. PAST MEDICAL HISTORY: Refer to HPI PAST SURGICAL HISTORY: D and C x2 C section x2 Spinal stimulator placement Tonsillectomy SOCIAL HISTORY: Denies tobacco, alcohol or illicit drug use. FAMILY HISTORY: Mother- DM and HTN ALLERGIES: Please see below. REVIEW OF SYSTEMS: 10 point review of system negative except as stated in HPI HOME MEDICATIONS: Please see below. PHYSICAL EXAMINATION: General: No acute distress, Alert Eyes: Normal sclera, EOMI, IWONA HENT: Atraumatic, neck supple, moist mucous membranes Cardiovascular: Normal rate, normal rhythm. Pulmonary: Clear to auscultation b/l, no wheezing GI: Soft, nontender, nondistended Skin: Warm and dry. Midline incision and R. lower back incision clean and dry. Neuro: CN grossly intact. No focal deficits. Strengths equal b/l. Psych: oriented x 3 LABORATORY DATA: See below. MICROBIOLOGY: Please see below. ASSESSMENT AND PLAN: 1. Back pain - s/p spinal cord stimulator placement. Tolerated procedure well. - Pain control. - clindamycin started by primary. - To follow up with Pain management post discharge. 2. LBBB - chronic. No chest pain or active issues. Vital Signs/I&O Vital Signs Date Time Temp Pulse Resp B/P (MAP) Pulse Ox O2 Delivery O2 Flow Rate FiO2 09/25/19 16:17 77 16 109/55 (73) 93 Room Air 09/25/19 16:02 97.0 Allergies Coded Allergies: Penicillins (Verified Allergy, Severe, anaphylaxis, 09/22/19) Sulfa (Sulfonamide Antibiotics) (Verified Allergy, Severe, anaphylaxis, 09/22/19) morphine (Verified Adverse Reaction, Intermediate, severe n/v, 09/22/19) Home Medications Scheduled Carisoprodol (Carisoprodol) 350 Mg Tablet, 175 MG PO Q8H, (Reported) Hydrocodone/Acetaminophen (Hydrocodone-Acetamin 5-325 mg) 1 Each Tablet, 1 TAB PO TID, (Reported) Scheduled PRN Naproxen Sodium (Aleve) 220 Mg Tablet, 440 MG PO PRN PRN for PAIN, (Reported) CLIVE BROOKS MD Sep 25, 2019 17:45
[2019-09-25] MEDS: CLINDAMYCIN 600 MG in IV 1 EA IV SCH (18:49)
[2019-09-25] MEDS: oxyCODONE 5MG TAB PO PRN (20:21)
[2019-09-26] MEDS: CLINDAMYCIN 600 MG in IV 1 EA IV SCH (01:54)
[2019-09-26 02:30] VITALS: BP 112/58
[2019-09-26] MEDS: oxyCODONE 5MG TAB PO PRN (06:16)
[2019-09-26 06:30] VITALS: BP 117/62
[2019-09-26 08:00] VITALS: BP 114/58
[2019-09-26 10:00] LABS: HEMATOCRIT 40.2 % (36.0-47.0); HEMOGLOBIN 12.6 g/dl (12.0-15.5); MEAN CORPUSCULAR HGB CONC 31.3 g/dl (32.0-36.5); MEAN CORPUSCULAR VOLUME 95.7 fl (80.0-96.0); PLATELET COUNT, AUTOMATED 311 10^3/uL (150-450); WHITE BLOOD COUNT 11.7 10^3/uL (4.0-10.0)
[2019-09-26 10:23] LABS: BLOOD UREA NITROGEN 13 MG/DL (7-18); CALCIUM LEVEL 8.1 MG/DL (8.5-10.1); CARBON DIOXIDE LEVEL 31 MEQ/L (21-32); CHLORIDE LEVEL 105 MEQ/L (98-107); CREATININE FOR GFR 0.89 MG/DL (0.55-1.30); GLOMERULAR FILTRATION RATE > 60.0 (>60); GLUCOSE, FASTING 110 MG/DL (70-100); POTASSIUM SERUM 3.3 MEQ/L (3.5-5.1); SODIUM LEVEL 143 MEQ/L (136-145)
== END 2019-09-26 10:25 | disposition home or self-care (01) ==
LOC: M SDC 07:54 → M PED 16:30 → M SDC 09-26 10:25
PROVIDERS: ATTEND Anesthesiology
DX: M54.16 Radiculopathy, lumbar region (principal); J45.909 Unspecified asthma, uncomplicated; Z79.899 Other long term (current) drug therapy; Z87.891 Personal history of nicotine dependence; Z88.0 Allergy status to penicillin; Z88.2 Allergy status to sulfonamides; Z88.5 Allergy status to narcotic agent
CPT/HCPCS: 36415; 63650; 63685; 76000; 80048; 81025; 85027; 96365; 96366; C1778; C1820; J0131; J1100; J1170; J2250; J2405; J2765; J3010; L8699

== ENCOUNTER → 2019-10-02 | Outpatient (CLI) | payer BC ==
[~2019-10-02] MED LIST changes: -BACITRACIN PWD 50,000 UNITS VIAL As Ordered ONE; -CLINDAMYCIN 600 MG in IV 1 EA IV ONE; -LIDOCAINE 1% MDV 20ML VIAL As Ordered ONE; -LIDOCAINE 2% INJ 100 MG/5 ML SDV (FOR ANES.) As Ordered ONE; -LR 1,000 ML IV SCH; -MIDAZOLAM INJ 2 MG/2 ML VIAL (J2250) As Ordered ONE; -ONDANSETRON 4MG/2ML VIAL (J2405) As Ordered ONE; -PROPOFOL 200 MG/20 ML VIAL As Ordered ONE; -THROMBIN SOLN 20,000 UNITS KIT As Ordered ONE; -fentaNYL 100 MCG/2 ML INJECTION (J3010) As Ordered ONE
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
== END ==
LOC: M PAIN 14:45
PROVIDERS: ATTEND Anesthesiology
DX: M51.17 Intervertebral disc disorders with radiculopathy, lumbosacral region (principal); G89.29 Other chronic pain; J45.909 Unspecified asthma, uncomplicated; Z96.89 Presence of other specified functional implants; Z88.0 Allergy status to penicillin; Z88.1 Allergy status to other antibiotic agents; Z88.5 Allergy status to narcotic agent; Z79.899 Other long term (current) drug therapy

== ENCOUNTER → 2019-10-24 | Outpatient (CLI) | payer BC ==
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
== END ==
LOC: M PAIN 11:00
PROVIDERS: ATTEND Nurse Practitioner Family
DX: M51.17 Intervertebral disc disorders with radiculopathy, lumbosacral region (principal)

== ENCOUNTER → 2019-11-15 | Outpatient (REF) | payer BC ==
[~2019-11-15] MED LIST changes: +CYCL10TA PO; +IBUP80TA PO
[2019-11-15 18:05] LABS: CHLAMYDIA DNA AMPLIFICATION NEGATIVE (NEGATIVE); GC DNA AMPLIFICATION NEGATIVE (NEGATIVE)
== END ==
LOC: M SFHCPLAZ 15:30
PROVIDERS: ATTEND Obstetrics & Gynecology
DX: Z11.3 Encounter for screening for infections with a predominantly sexual mode of transmission (principal)

== ENCOUNTER → 2019-11-20 | Outpatient (CLI) | payer BC ==
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
== END ==
LOC: M PAIN 08:45
PROVIDERS: ATTEND Nurse Practitioner Family
DX: G89.29 Other chronic pain (principal); M54.6 Pain in thoracic spine

== ENCOUNTER → 2019-11-28 | Outpatient (CLI) | payer BC ==
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
== END ==
LOC: M PAIN 14:45
PROVIDERS: ATTEND Anesthesiology
DX: M51.16 Intervertebral disc disorders with radiculopathy, lumbar region (principal); G89.29 Other chronic pain; J45.909 Unspecified asthma, uncomplicated; Z88.0 Allergy status to penicillin; Z88.2 Allergy status to sulfonamides; Z88.5 Allergy status to narcotic agent; Z79.899 Other long term (current) drug therapy

== ENCOUNTER → 2019-12-21 | Outpatient (CLI) | payer BC ==
--- NOTE | 2019-12-21 08:47 | REP ---
Clinical: Pain. Technique: AP, lateral, bilateral oblique and coned-down views of the lumbosacral spine. Findings: Stimulator device with lead overlying the mid-thoracic spine. Alignment and lordosis maintained. No acute fracture / compression injury or subluxation. No significant degenerative changes. Impression: Age-related findings. Electronically Signed by Pillo Esparza MD 12/21/2019 08:38 A
--- NOTE | 2019-12-21 08:48 | REP ---
Clinical: Pain. Technique: AP, lateral, swimmers views of the thoracic spine. Findings: Alignment and kyphosis maintained. No acute fracture / compression injury or subluxation. Stimulator device identified with tips overlying the T5/T6 level. Impression: Age-related changes Stimulator with leads at the T5-6 level Electronically Signed by Pillo Esparza MD 12/21/2019 08:39 A
== END ==
LOC: M WUC 08:13
PROVIDERS: ATTEND Nurse Practitioner Family
DX: M51.16 Intervertebral disc disorders with radiculopathy, lumbar region (principal)

== ENCOUNTER → 2019-12-29 | Outpatient (CLI) | payer BC ==
--- NOTE | 2019-12-29 13:49 | REPVR ---
PROCEDURE INFORMATION: Exam: MR Cervical Spine Without Contrast Exam date and time: 12/29/2019 12:48 PM Age: 39 years old Clinical indication: Neck pain; Patient HX: Severe neck and back pain, [facility], nki; Additional info: Chronic back pain c-t spine TECHNIQUE: Imaging protocol: Multiplanar magnetic resonance images of the cervical spine without contrast. COMPARISON: CT Spine,thoracic w/o contrast 11/17/2019 11:17:02 AM FINDINGS: Vertebrae: There is straightening of the cervical spine which could be secondary to positioning or muscle spasm. The cervical vertebral bodies are normal height and alignment.No acute fracture or dislocation is seen. There is a normal proportion of hematopoietic bone marrow and fat for this patient's age.There is no evidence of abnormal bone marrow signal intensity to suggest contusion or infection. Spinal cord: The cervical spinal cord is normal in thickness and signal intensity.There is no cord compression or intramedullary signal abnormality. Spinal epidural space: There is no evidence for epidural mass or hemorrhage. C1-C2: The atlantoaxial articulation is normal. C2-C3: No significant disc disease. No significant spinal stenosis. C3-C4: There is no significant degenerative disc herniation.The spinal canal and neural foramina are patent and without significant stenosis. C4-C5: Small posterior and right paracentral herniation. Mild right lateral recess and foraminal stenosis. Mild indentation of the spinal cord. Mild spinal canal stenosis. C5-C6: Moderate posterior and left foraminal disc spur complex.The facet joints demonstrate mild degenerative hypertrophy and sclerosis. Moderate spinal canal stenosis. Mild compression and flattening of the spinal cord at this level. Moderate left lateral recess and foraminal stenosis. C6-C7: There is no significant degenerative disc herniation.The spinal canal and neural foramina are patent and without significant stenosis. C7-T1: There is no significant degenerative disc herniation.The spinal canal and neural foramina are patent and without significant stenosis. Brain: The visualized brain parenchyma is unremarkable. Vertebral arteries: Expected flow voids in the vertebral arteries. Soft tissues: The prevertebral soft tissues appear normal. IMPRESSION: 1. MRI of the cervical spine reveals multilevel degenerative spondylitic changes and degenerative disc disease as described above. 2. The cervical vertebral bodies are normal height and alignment.No acute fracture or dislocation is seen. 3. The cervical spinal cord is normal in thickness and signal intensity.There is no cord compression or intramedullary signal abnormality. Electronically signed by: Greyson Mcclendon On 12/29/2019 13:48:39 PM
== END ==
LOC: M PLARAD 10:23
PROVIDERS: ATTEND Nurse Practitioner Family
DX: M54.2 Cervicalgia (principal); M54.6 Pain in thoracic spine

== ENCOUNTER → 2020-01-02 | Outpatient (CLI) | payer BC ==
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
== END ==
LOC: M PAIN 09:45
PROVIDERS: ATTEND Nurse Practitioner Family
DX: G89.29 Other chronic pain (principal); M54.6 Pain in thoracic spine

== ENCOUNTER → 2020-01-12 | Outpatient (CLI) | payer BC ==
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
== END ==
LOC: M PAIN 11:00
PROVIDERS: ATTEND Anesthesiology
DX: R07.89 Other chest pain (principal); M51.16 Intervertebral disc disorders with radiculopathy, lumbar region

== ENCOUNTER → 2020-02-23 | Outpatient (CLI) | payer BC ==
[~2020-02-23] MED LIST changes: +CYCL-707 PO; -CYCL10TA PO
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
== END ==
LOC: M PAIN 09:30 → M TMPAIN 09:30
PROVIDERS: ATTEND Nurse Practitioner Family
DX: G89.29 Other chronic pain (principal); F41.9 Anxiety disorder, unspecified; Z79.891 Long term (current) use of opiate analgesic; Z79.899 Other long term (current) drug therapy; Z87.891 Personal history of nicotine dependence; Z88.0 Allergy status to penicillin; Z88.2 Allergy status to sulfonamides; Z88.5 Allergy status to narcotic agent

== ENCOUNTER → 2020-03-08 | Outpatient (CLI) | payer BC ==
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
== END ==
LOC: M PAIN 10:15
PROVIDERS: ATTEND Nurse Practitioner Family
DX: G89.29 Other chronic pain (principal); J45.909 Unspecified asthma, uncomplicated; Z87.891 Personal history of nicotine dependence; Z88.0 Allergy status to penicillin; Z88.2 Allergy status to sulfonamides; Z88.5 Allergy status to narcotic agent; Z79.899 Other long term (current) drug therapy

== ENCOUNTER → 2020-03-21 | Outpatient (REF) | payer BC | LOC: M SFHCPLAZ 14:50 | DX: Z01.818 Encounter for other preprocedural examination (principal) ==

== ENCOUNTER → 2020-04-25 | Outpatient (CLI) | payer BC ==
[~2020-04-25] MED LIST changes: +BACL5TAB2; +CIPR-249 PO; +DIFL150T PO; +FLAG500T PO; +FLUC150T; +GABA-1171; +GABA-282; +MACR100C43 PO; +NORC1TAB5 PO
--- NOTE | 2020-04-26 06:34 | REP ---
Clinical: Pain. Technique: AP, lateral, coned-down views of the lumbosacral spine. Findings: Alignment and lordosis maintained. Vertebral bodies are intact. No acute fracture / compression injury or subluxation. Disc space narrowing at L5-S1 cannot be excluded. Epidural stimulator identified which appears to extend into the mid thoracic level. Impression: 1. No acute fracture / compression injury or subluxation. 2. Cannot exclude mild disc space narrowing at L5-S1. Electronically Signed by Pillo Esparza MD 04/26/2020 06:26 A
--- NOTE | 2020-04-26 06:36 | REP ---
Clinical: Back pain. Technique: AP, lateral, flexion/extension and swimmer's views of the thoracic spine. Findings: Alignment and kyphosis maintained. Endplate sclerosis with disc space narrowing and marginal spurring/osteophytosis is most pronounced at the T10-11 level as well as the T9-10, T11-12, and T8-9 levels. No acute fracture / compression injury or subluxation. Impression: Mild/early moderate multifocal degenerative spondylosis suggested. Electronically Signed by Pillo Esparza MD 04/26/2020 06:28 A
== END ==
LOC: M WUC 15:55
PROVIDERS: ATTEND Physician Assistant
DX: M54.9 Dorsalgia, unspecified (principal)

== ENCOUNTER → 2020-05-24 | Outpatient (CLI) | payer BC ==
[~2020-05-24] MED LIST changes: -DIFL150T PO; -GABA-282; +GABA-843; -MACR100C43 PO
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
== END ==
LOC: M PAIN 10:00
PROVIDERS: ATTEND Nurse Practitioner Family
DX: M51.16 Intervertebral disc disorders with radiculopathy, lumbar region (principal)

== ENCOUNTER → 2020-06-26 | Outpatient (POV) | payer BC | LOC: M PAIN 09:00 | PROVIDERS: ATTEND Nurse Practitioner Family | DX: M46.1 Sacroiliitis, not elsewhere classified (principal); M54.2 Cervicalgia ==

== ENCOUNTER → 2020-06-28 | Outpatient (CLI) | payer BC | LOC: M LABSMTC 10:03 | PROVIDERS: ATTEND Anesthesiology | DX: Z20.828 Contact with and (suspected) exposure to other viral communicable diseases (principal) ==

== ENCOUNTER → 2020-07-03 | Outpatient (CLI) | payer BC ==
[~2020-07-03] MED LIST changes: +BUPIVACAINE HCL 0.25% 10ML VIAL As Ordered ONE; +BUPIVACAINE HCL 0.25% 30ML VIAL As Ordered ONE; +NORCO, ANEXSIA 5/325MG TABLET (HYDROcodone/ACETAMINOPHEN) As Ordered ONE; +TRIAMCINOLONE ACETONIDE SUSP 40 MG/ML VIAL (J3301) As Ordered ONE
== END ==
LOC: M PAIN 09:28
PROVIDERS: ATTEND Anesthesiology
DX: M79.18 Myalgia, other site (principal)
CPT/HCPCS: 20553; J3301

== ENCOUNTER → 2020-07-22 | Outpatient (CLI) | payer BC ==
[~2020-07-22] MED LIST changes: -BUPIVACAINE HCL 0.25% 10ML VIAL As Ordered ONE; -BUPIVACAINE HCL 0.25% 30ML VIAL As Ordered ONE; -NORCO, ANEXSIA 5/325MG TABLET (HYDROcodone/ACETAMINOPHEN) As Ordered ONE; -TRIAMCINOLONE ACETONIDE SUSP 40 MG/ML VIAL (J3301) As Ordered ONE
== END ==
LOC: M PAIN 10:02
PROVIDERS: ATTEND Nurse Practitioner Family
DX: M47.816 Spondylosis without myelopathy or radiculopathy, lumbar region (principal)

== ENCOUNTER 2020-08-20 15:44 | Emergency (ER) | payer BC ==
[~2020-08-20] VITALS: Ht 160 cm; Wt 103.1 kg
[~2020-08-20 15:44] MED LIST changes: -BACL5TAB2; -CIPR-249 PO; -FLAG500T PO; -FLUC150T; -GABA-1171; -GABA-843; -NORC1TAB5 PO
[2020-08-20] MEDS ORDERED: NORC1TAB5 PO (16:05)
[2020-08-20] MEDS ORDERED: BACL5TAB2 (16:06)
[2020-08-20] MEDS ORDERED: GABA-1171 (16:06)
[2020-08-20] MEDS ORDERED: GABA-843 (16:06)
[2020-08-20] MEDS ORDERED: PANTOPRAZOLE 40MG VIAL (C9113 PER 1) IV ONE (16:30)
[2020-08-20] MEDS ORDERED: NS 1,000 ML IV ONE (16:30)
[2020-08-20] MEDS ORDERED: ONDANSETRON 4MG/2ML VIAL IV ONE (16:30)
[2020-08-20] MEDS ORDERED: KETOROLAC 30 MG/ML 1ML VIAL IV ONE (16:30)
[2020-08-20 17:47] LABS: BASO # 0.1 10^3/uL (0.0-0.2); BASO % 0.7 % (0.0-1.0); EOS # 0.1 10^3/uL (0.0-0.5); EOS % 0.6 % (0.0-3.0); HEMATOCRIT 42.3 % (36.0-47.0); HEMOGLOBIN 14.1 g/dl (12.0-15.5); LYMPH # 2.8 10^3/uL (1.5-5.0); LYMPH % 33.1 % (24.0-44.0); MEAN CORPUSCULAR HEMOGLOBIN 30.5 pg (27.0-33.0); MEAN CORPUSCULAR HGB CONC 33.3 g/dl (32.0-36.5); MEAN CORPUSCULAR VOLUME 91.6 fl (80.0-96.0); MONO # 0.6 10^3/uL (0.0-0.8); NEUTROPHILS # 4.9 10^3/uL (1.5-8.5); NEUTROPHILS % 58.4 % (36.0-66.0); PLATELET COUNT, AUTOMATED 350 10^3/uL (150-450); RED BLOOD COUNT 4.62 10^6/uL (4.00-5.40); WHITE BLOOD COUNT 8.4 10^3/uL (4.0-10.0)
[2020-08-20 18:11] LABS: ALBUMIN 3.7 GM/DL (3.2-5.2); ALT/SGPT 31 U/L (12-78); BILIRUBIN,DIRECT < 0.1 MG/DL (0.0-0.2); BILIRUBIN,TOTAL 0.3 MG/DL (0.2-1.0); LIPASE 91 U/L (73-393); TOTAL PROTEIN 7.6 GM/DL (6.4-8.2)
[2020-08-20] MEDS ORDERED: ISOVUE-370 76% 100ML VIAL As Ordered ONE (18:13)
--- NOTE | 2020-08-20 19:00 | REPVR ---
PROCEDURE INFORMATION: Exam: CT Abdomen And Pelvis With Contrast Exam date and time: 08/20/2020 6:22 PM Age: 40 years old Clinical indication: Abdominal pain; Generalized; Additional info: Left abd pain TECHNIQUE: Imaging protocol: Computed tomography of the abdomen and pelvis with intravenous contrast. Radiation optimization: All CT scans at this facility use at least one of these dose optimization techniques: automated exposure control; mA and/or kV adjustment per patient size (includes targeted exams where dose is matched to clinical indication); or iterative reconstruction. Contrast material: ISOVUE 370; Contrast volume: 100 ml; Contrast route: INTRAVENOUS (IV); COMPARISON: SPINE LUMBOSACRAL PARTIAL 04/25/2020 4:08 PM FINDINGS: Tubes, catheters and devices: Spinal stimulator leads demonstrated entering the spinal canal at the T12-L1 level. Liver: There is a diffuse decrease in hepatic parenchymal density, consistent with steatosis. Gallbladder and bile ducts: Normal. No calcified stones. No ductal dilation. Pancreas: Normal. No ductal dilation. Spleen: Normal. No splenomegaly. Adrenals: Normal. No mass. Kidneys and ureters: Normal. No hydronephrosis. Stomach and bowel: There is a small focus of inflammation demonstrated lateral to the proximal left colon just distal to the splenic flexure (series 201, image 30). Appendix: No evidence of appendicitis. Intraperitoneal space: Unremarkable. No free air. No significant fluid collection. Vasculature: Unremarkable. No abdominal aortic aneurysm. Lymph nodes: Unremarkable. No enlarged lymph nodes. Urinary bladder: Unremarkable as visualized. Reproductive: IUD demonstrated centrally within the uterus. Bones/joints: Unremarkable. No acute fracture. Soft tissues: Unremarkable. IMPRESSION: 1. There is a small focus of inflammation demonstrated lateral to the proximal left colon just distal to the splenic flexure. Differential diagnosis includes focal diverticulitis, focal colitis or an omental/mesenteric infarct. 2. There is a diffuse decrease in hepatic parenchymal density, consistent with steatosis. Electronically signed by: Jean Escalera On 08/20/2020 19:00:35 PM
[2020-08-20] MEDS ORDERED: CIPR-249 PO (19:14)
[2020-08-20] MEDS ORDERED: FLAG500T PO (19:14)
[2020-08-20] MEDS ORDERED: CIPROFLOXACIN 500MG TABLET PO ONE (19:15)
[2020-08-20] MEDS ORDERED: metroNIDAZOLE (FLAGYL) 500MG TABLET PO ONE (19:15)
[2020-08-20 20:07] VITALS: BP 144/78
== END 2020-08-20 20:10 | disposition home or self-care (01) ==
LOC: M ED 15:44
DX: K52.9 Noninfective gastroenteritis and colitis, unspecified (principal); T38.0X5A Adverse effect of glucocorticoids and synthetic analogues, initial encounter; K21.9 Gastro-esophageal reflux disease without esophagitis; M51.9 Unspecified thoracic, thoracolumbar and lumbosacral intervertebral disc disorder; M79.2 Neuralgia and neuritis, unspecified; Z96.82 Presence of neurostimulator; Z88.0 Allergy status to penicillin; Z88.5 Allergy status to narcotic agent; Z88.2 Allergy status to sulfonamides; Z79.899 Other long term (current) drug therapy
CPT/HCPCS: 74177; 80047; 80076; 81001; 83690; 84702; 85025; 96361; 96374; 96375; 99284; C9113; J1885; Q9967

== ENCOUNTER 2020-08-29 12:26 | Emergency (ER) | payer BC ==
[~2020-08-29] VITALS: Ht 160 cm; Wt 101.6 kg
[~2020-08-29 12:26] MED LIST changes: +BACL5TAB2; +CIPR-249 PO; +FLAG500T PO; +GABA-1171; +GABA-843; +NORC1TAB5 PO
[2020-08-29] MEDS ORDERED: FLUC150T (12:36)
[2020-08-29 13:59] LABS: BASO # 0.1 10^3/uL (0.0-0.2); BASO % 0.6 % (0.0-1.0); EOS # 0.1 10^3/uL (0.0-0.5); EOS % 0.7 % (0.0-3.0); HEMATOCRIT 44.6 % (36.0-47.0); HEMOGLOBIN 14.6 g/dl (12.0-15.5); LYMPH # 2.6 10^3/uL (1.5-5.0); LYMPH % 28.1 % (24.0-44.0); MEAN CORPUSCULAR HEMOGLOBIN 30.3 pg (27.0-33.0); MEAN CORPUSCULAR HGB CONC 32.7 g/dl (32.0-36.5); MEAN CORPUSCULAR VOLUME 92.5 fl (80.0-96.0); MONO # 0.6 10^3/uL (0.0-0.8); MONO % 6.6 % (0.0-5.0); NEUTROPHILS # 5.8 10^3/uL (1.5-8.5); NEUTROPHILS % 63.7 % (36.0-66.0); PLATELET COUNT, AUTOMATED 343 10^3/uL (150-450); RED BLOOD COUNT 4.82 10^6/uL (4.00-5.40); WHITE BLOOD COUNT 9.1 10^3/uL (4.0-10.0)
[2020-08-29 15:56] VITALS: BP 130/63
== END 2020-08-29 15:53 | disposition home or self-care (01) ==
LOC: M ED 12:26
DX: K92.1 Melena (principal); K21.9 Gastro-esophageal reflux disease without esophagitis; Z88.0 Allergy status to penicillin; Z88.1 Allergy status to other antibiotic agents; Z88.2 Allergy status to sulfonamides; Z88.5 Allergy status to narcotic agent; Z79.899 Other long term (current) drug therapy

== ENCOUNTER → 2020-09-12 | Outpatient (CLI) | payer BC ==
[~2020-09-12] MED LIST changes: +FLUC150T
[2020-09-12 13:50] LABS: C REACTIVE PROTEIN QUANTITATIV 0.85 MG/DL (0.00-0.30); RHEUMATOID FACTOR QUANT < 10.0 IU/ML (<15.0)
[2020-09-13 16:08] LABS: ANTINUCLEAR ANTIBODIES DIRECT Negative (Negative); Lyme Disease IgG/IgM Antibodie <0.91 ISR (0.00-0.90); Lyme Disease IgM Ab Quantitati <0.80 index (0.00-0.79)
== END ==
LOC: M WUC 10:36
PROVIDERS: ATTEND Student in an Organized Health Care Education/Training Program
DX: M25.50 Pain in unspecified joint (principal)

== ENCOUNTER → 2020-09-26 | Outpatient (CLI) | payer BC ==
[~2020-09-26] MED LIST changes: +MACR100C43 PO
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
== END ==
LOC: M PAIN 09:00
PROVIDERS: ATTEND Nurse Practitioner Family
DX: M51.16 Intervertebral disc disorders with radiculopathy, lumbar region (principal); Z87.891 Personal history of nicotine dependence; Z79.891 Long term (current) use of opiate analgesic; Z79.899 Other long term (current) drug therapy; Z88.0 Allergy status to penicillin; Z88.1 Allergy status to other antibiotic agents; Z88.2 Allergy status to sulfonamides; Z88.5 Allergy status to narcotic agent

== ENCOUNTER 2020-09-30 17:50 | Emergency (ER) | payer BC ==
[~2020-09-30] VITALS: Ht 160 cm; Wt 105.2 kg
[~2020-09-30 17:50] MED LIST changes: -MACR100C43 PO
[2020-09-30 17:52] VITALS: BP 135/81
[2020-09-30 18:44] LABS: BASO # 0.1 10^3/uL (0.0-0.2); BASO % 0.6 % (0.0-1.0); EOS # 0.1 10^3/uL (0.0-0.5); EOS % 1.6 % (0.0-3.0); HEMATOCRIT 40.8 % (36.0-47.0); HEMOGLOBIN 13.6 g/dl (12.0-15.5); LYMPH # 3.4 10^3/uL (1.5-5.0); LYMPH % 42.1 % (24.0-44.0); MEAN CORPUSCULAR HEMOGLOBIN 30.2 pg (27.0-33.0); MEAN CORPUSCULAR HGB CONC 33.3 g/dl (32.0-36.5); MEAN CORPUSCULAR VOLUME 90.5 fl (80.0-96.0); MONO # 0.6 10^3/uL (0.0-0.8); MONO % 6.8 % (0.0-5.0); NEUTROPHILS # 3.9 10^3/uL (1.5-8.5); NEUTROPHILS % 48.7 % (36.0-66.0); PLATELET COUNT, AUTOMATED 336 10^3/uL (150-450); RED BLOOD COUNT 4.51 10^6/uL (4.00-5.40); WHITE BLOOD COUNT 8.1 10^3/uL (4.0-10.0)
[2020-09-30 19:18] LABS: ALBUMIN 3.7 GM/DL (3.2-5.2); ALT/SGPT 38 U/L (12-78); BILIRUBIN,DIRECT < 0.1 MG/DL (0.0-0.2); BILIRUBIN,TOTAL 0.2 MG/DL (0.2-1.0); BLOOD UREA NITROGEN 16 MG/DL (7-18); CALCIUM LEVEL 9.1 MG/DL (8.5-10.1); CARBON DIOXIDE LEVEL 28 MEQ/L (21-32); CHLORIDE LEVEL 104 MEQ/L (98-107); CREATININE FOR GFR 0.75 MG/DL (0.55-1.30); GLOMERULAR FILTRATION RATE > 60.0 (>58); GLUCOSE, FASTING 114 MG/DL (70-100); LIPASE 94 U/L (73-393); POTASSIUM SERUM 3.9 MEQ/L (3.5-5.1); SODIUM LEVEL 139 MEQ/L (136-145); TOTAL PROTEIN 7.1 GM/DL (6.4-8.2)
--- NOTE | 2020-09-30 20:06 | REPVR ---
PROCEDURE INFORMATION: Exam: US Pelvis Complete, Transabdominal and US Pelvis, Transvaginal and US Duplex Artery and Vein, Ovaries, Complete Exam date and time: 09/30/2020 7:50 PM Age: 40 years old Clinical indication: Pelvic pain; Additional info: Rlq pain; R/O cyst TECHNIQUE: Imaging protocol: Real-time transabdominal and transvaginal pelvic ultrasound (complete) with image documentation. Transvaginal imaging was used for better evaluation of the endometrium, adnexa, and/or cervix. Real-time duplex ultrasound scan of the arterial and venous flow of the ovaries with B-mode, color Doppler flow and spectral waveform analysis. COMPARISON: CT ABD/PEL W/IV CONTRAST ONLY 08/20/2020 6:17 PM FINDINGS: Uterus/cervix: The uterus measures 7.4 x 3.7 x 4.8 cm transabdominally and 8.1 x 3.4 x 4.6 cm transvaginally. It is homogeneous in echotexture, without demonstrated lesion. An intrauterine device is in place. The endometrium measures up to 4 mm in thickness. Right adnexa: The right ovary measures 3.5 x 2.3 x 2.9 cm, as seen transvaginally only. It contains small follicles and appears otherwise unremarkable. There is internal arterial and venous flow. Peak systolic velocity 7.6 cm/s, end-diastolic velocity 3.6 cm/s, resistive index 0.54. Left adnexa: The left ovary measures 2.9 x 2.0 x 2.0 cm, as seen transvaginally only. It contains small follicles and appears otherwise unremarkable. There is internal arterial and venous flow. Peak systolic velocity 12.4 cm/s, end-diastolic velocity 6.7 cm/s, resistive index 0.46. Intraperitoneal space: No significant free fluid is present. Urinary bladder: The urinary bladder measures 6.5 x 4.3 x 7.2 cm and appears grossly unremarkable. IMPRESSION: 1. Unremarkable uterus, allowing for the presence of an intrauterine device. 2. Small bilateral ovarian follicles. 3. Normal internal flow to both ovaries without torsion. Electronically signed by: Taj Alvarado On 09/30/2020 20:06:23 PM
[2020-09-30] MEDS ORDERED: NORCO, ANEXSIA 5/325MG TABLET (HYDROcodone/ACETAMINOPHEN) PO ONE (20:15)
--- NOTE | 2020-09-30 21:14 | REPVR ---
PROCEDURE INFORMATION: Exam: CT Abdomen And Pelvis Without Contrast Exam date and time: 09/30/2020 8:47 PM Age: 40 years old Clinical indication: Abdominal pain; Localized; Right lower quadrant (rlq); Additional info: Rlq pain/hematuria; R/O stone TECHNIQUE: Imaging protocol: Computed tomography of the abdomen and pelvis without contrast. Radiation optimization: All CT scans at this facility use at least one of these dose optimization techniques: automated exposure control; mA and/or kV adjustment per patient size (includes targeted exams where dose is matched to clinical indication); or iterative reconstruction. COMPARISON: CT ABD/PEL W/IV CONTRAST ONLY 08/20/2020 6:17 PM FINDINGS: Lungs: Calcified granuloma in the right middle lobe. Liver: Normal. No mass. Gallbladder and bile ducts: Normal. No calcified stones. No ductal dilation. Pancreas: Normal. No ductal dilation. Spleen: Normal. No splenomegaly. Adrenal glands: Normal. No mass. Kidneys and ureters: Normal. No hydronephrosis. Stomach and bowel: Unremarkable. No obstruction. No mucosal thickening. Appendix: A normal appendix is seen. Intraperitoneal space: Unremarkable. No free air. No significant fluid collection. Vasculature: Unremarkable. No abdominal aortic aneurysm. Lymph nodes: Unremarkable. No enlarged lymph nodes. Urinary bladder: Unremarkable as visualized. Reproductive: There is an IUD in the uterus. Bones/joints: Prominent sclerosis of the iliac wings adjacent to the SI joints and to a lesser degree the adjacent sacrum consistent with sacroiliitis. Soft tissues: Generator implanted in subcutaneous fat of the right back with electrodes entering the epidural space at T12-L1 and extending cephalad into the posterior thoracic epidural space. Small fat filled umbilical hernia. IMPRESSION: 1. There has been little change from 08/20/2020. No acute interval process is identified. No renal or ureteral calculi are evident and there is no evidence of obstructive uropathy. 2. Sacroiliitis. 3. IUD in position. Electronically signed by: Surendra Copeland On 09/30/2020 21:14:15 PM
[2020-09-30] MEDS ORDERED: MACR100C43 PO (21:36)
[2020-09-30] MEDS ORDERED: NITROFURANTOIN (MACROBID) 100 MG CAP PO ONE (21:45)
[2020-10-01] MEDS ORDERED: DIFL150T PO (12:06)
== END 2020-09-30 22:02 | disposition home or self-care (01) ==
LOC: M ED 17:50
DX: N39.0 Urinary tract infection, site not specified (principal); R10.31 Right lower quadrant pain; M54.5 Low back pain; J45.909 Unspecified asthma, uncomplicated; K21.9 Gastro-esophageal reflux disease without esophagitis; Z88.0 Allergy status to penicillin; Z88.1 Allergy status to other antibiotic agents; Z88.2 Allergy status to sulfonamides; Z88.5 Allergy status to narcotic agent

== ENCOUNTER → 2020-11-16 | Outpatient (CLI) | payer BC ==
[~2020-11-16] MED LIST changes: +DIFL150T PO; +MACR100C43 PO
== END ==
LOC: M LABSMTC 11:51
PROVIDERS: ATTEND Anesthesiology
DX: Z01.812 Encounter for preprocedural laboratory examination (principal); Z20.822 Contact with and (suspected) exposure to COVID-19

== ENCOUNTER 2020-11-21 07:55 | Day surgery (SDC) | payer BC ==
[~2020-11-21] VITALS: Ht 160 cm; Wt 98.0 kg
[~2020-11-21 07:55] MED LIST changes: +GABA-282; -GABA-843; +LIDOCAINE 2% 100MG/5ML SDV (FOR ANES.) As Ordered ONE; +NS 1,000 ML IV ONE; +SIMETHICONE 40MG/0.6ML DROPS 30ML As Ordered ONE; +propofoL 500 MG/50 ML VIAL As Ordered ONE
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
--- OUTSIDE RECORDS SUMMARY | 2020-11-21 08:02 | CCD | Continuity of Care Document ---
Author Author [facility] Organization Unknown Address [address], [address] [place] [address] Phone [phone] Care Team Providers Care Medical Device Sales Consultant Name Role Phone Chi Le D.O.M [phone] Problems Active Problems Provider Date Allergic asthma without status asthmaticus Barry Sahu NP Onset: 10/24/2020 Social History Type Date Description Comments Sex Unknown ETOH Use Denies alcohol use Tobacco Use Start: Unknown End: Unknown Patient is a former smoker WEEKENDS FOR 1 YEAR THEN QUIT AT AGE 22 Recreational Drug Use Denies Drug Use Allergies, Adverse Reactions, Alerts Active Allergies Reaction Severity Comments Date Penicillin V ANAPHYLAXIS 10/24/2020 Sulfa Facial swelling 10/24/2020 Morphine Nausea 10/24/2020 Oxycodone TONGUE ULCERS 10/24/2020 Kenalog NAUSEA,VOMITING, FLUSHING Doxycycline C-DIFF 10/24/2020 Medications Active Medications SIG Qnty Indications Ordering Provide r Date Hydrocodone-Acetaminophen 10-325mg Tablets 1/2 To 1 Tab prn Pain Unknown Aleve 220mg Tablets prn Unknown Immunizations Description No Information Available Vital Signs Date Vital Result Comment 10/24/2020 10:16am BP Systolic 152 mmHg BP Diastolic 94 mmHg Height 63 inches 5'3" Weight 225.00 lb BMI (Body Mass Index) 39.9 kg/m2 [place] Body Weight 115 lb Weight 102.060 kg BSA (Body Surface Area) 2.03 m2 Results Description No Information Available Procedures Description No Information Available Medical Devices Description No Information Available Encounters Description No Information Available Assessments Description No Information Available Plan of Treatment No Information Available Functional Status Description No Information Available Mental Status Description No Information Available Referrals Description No Information Available
--- OUTSIDE RECORDS SUMMARY | 2020-11-21 08:02 | CCD ---
Author Author [facility] Syst ems Organization [facility] ems Address Unknown Phone Unavailable Care Team Providers Care Dishroom Attendant Name Role Phone Alem Terry Unavailable PROBLEMS Type Condition ICD9-CM Code WVD69-VH Code Onset Dates Condition S tatus SNOMED Code Notes Problem Lumbago with sciatica, right side M54.41 Active 89297196804550355 Problem Intervertebral disc disorder with radiculopathy of lumbosacral region M51.17 Active 35809139 Problem Protrusion of intervertebral disc of lumbosacral region M51.27 Active 76942480 Problem Sacroiliitis M46.1 Active 51337224 Problem Intervertebral disc disorders with radiculopathy , lumbosacral region M51.17 Active 49029061010539684 Problem Intervertebral disc disorders with radiculopathy , lumbar region M51.16 Active 196024971011322 Problem Rheumatoid arthritis, involv ing unspecified site, unspecified whether rheumatoid factor present M06.9 Active 03228566 Problem Myalgia, other site M79.18 Active 55359133 Problem Diverticulitis K57.92 Active 903475812 Problem Other chronic pain G89.29 Active 91420093 Problem Left-sided chest wall pain R07.89 Active 34535 8006 Problem Anxiety F41.9 Active 08355428 Problem Adjustment disorder with mixed anxiety and depressed mood F43.23 Active 441582675 Problem Adjustment disorder with anxiety F43.22 Active 10455382 ALLERGIES Allergen (clinical drug ingredient) Drug/Non Drug Allergy do cumented on EMR Reaction Allergy Type Onset Date Status Sulfa (for allergy use only) Dyspnea, hives, facial swelli ng Drug Allergy Active Penicillin (For Allergies Use Only) Anaphylaxis Drug Aller gy Active Ciprofloxacin Joint Swelling Drug Allergy Activ e doxycycline Doxycycline([facility] Code:[address]-29) Diarrhea Drug Aller gy Active morphine Morphine Sulfate([facility] Code:[address]-50) Nausea/ Vomiting, Hives Drug Allergy Active oxycodone Oxycodone HCl([facility] Code:[address]-79) Angioedema Drug Bismark rgy Active ENCOUNTERS from 1980 to 2020-10-23 Encounter Location Date Provider Diagnosis [facility] [address] [place] [address] Oct, Alem Terry Intervertebral disc disorders with radic ulopathy, lumbar region M51.16 IMMUNIZATIONS No Information SOCIAL HISTORY Tobacco Use: Social History Observation Description Date Details (start date - stop date) Former Smoker Sex Assigned At : Social History Observation Description Sex Assigned At Unknown Education: Question Answer Notes Level of Education: Not Finished College Audit Question Answer Notes Total Score: 0 Interpretation: Alcohol Education Language: Question Answer Notes Languages spoken: Thai Scientologist: Question Answer Notes Scientologist 21 Buddhism Sexual Hx: Question Answer Notes Had sex [...] REASON FOR REFERRAL No Information VITAL SIGNS No information MEDICATIONS Medication SIG (Take, Route, Frequency, Duration) Notes Start Da te End Date Status Multivitamin Adults _ 1 tab Orally Daily Active Vitamin C Gummie 120 MG 2 GUMMIES Orally Daily Active Ibuprofen 200 MG 2 tablet with food or milk as needed Ora lly Three times a day Not-Taking [place] 10-325 MG 1 tablet as needed Orally q8h prn mdd3 for 30 da ys Oct, Active Mirena 20 MCG/24HR as directed Intrauterine Active Aleve 220 MG 2 tablet with food or milk as needed Orally every 12 hrs Active Flexeril 10 MG 1 tablet as needed Orally tid Not-Taking [place] 5-325 MG 1 tablet as needed Orally q8h prn mdd 3 Oct, Not-Taking Aleve 220 MG 1 tablet with food or milk as needed Orally every 12 hrs Not-Taking PROCEDURES No Information RESULTS No Results REASON FOR VISIT REFILL HYDROCODONE 10/325 MG MEDICAL (GENERAL) HISTORY Type Description Date Medical [...] Notes Treatment Notes Treatm ent Clinical Notes Oct, Intervertebral disc disorder s with radiculopathy, lumbar region (ICD-10 - M51.16) PLAN OF TREATMENT Medication Medication Name Sig Start Date Stop Date [place] 10-325 MG 1 tablet as needed Orally q8h prn mdd3 for 30 da ys Oct, Next Appt Details Provider Name:Chi Le, 2019-11 01:00:00 PM, [address] [facility], [place], [address], Provider Name:Alem Terry, 2020-12-30 09 :00:00 AM, [address] [place], [address], Insurance Providers Payer Name Payer Address Payer Phone Insured Name Patient Relati onship to Insured Coverage Start Date Coverage End Date BCARAM HURT PPO [phone] [facility] [place] [id number] Winston Driscoll
--- OUTSIDE RECORDS SUMMARY | 2020-11-21 08:03 | CCD ---
Author Author [facility] ems Organization [facility] ems Address Unknown Phone Unavailable Care Team Providers Care Online Marketing Coordinator Name Role Phone Chi Le Unavailable PROBLEMS Type Condition ICD9-CM Code [id number] Code Onset Dates Condition S tatus SNOMED Code Notes Problem Lumbago with sciatica, right side M54.41 Active 84993628799184668 Problem Intervertebral disc disorder with radiculopathy of lumbosacral region M51.17 Active 08834690 Problem Protrusion of intervertebral disc of lumbosacral region M51.27 Active 29352889 Problem Sacroiliitis M46.1 Active 91274245 Problem Intervertebral disc disorders with radiculopathy , lumbosacral region M51.17 Active 88500324195946704 Problem Intervertebral disc disorders with radiculopathy , lumbar region M51.16 Active 293251108354588 Problem Rheumatoid arthritis, involv ing unspecified site, unspecified whether rheumatoid factor present M06.9 Active 77890691 Problem Myalgia, other site M79.18 Active 74166089 Problem Diverticulitis K57.92 Active 535333779 Problem Other chronic pain G89.29 Active 74395821 Problem Left-sided chest wall pain R07.89 Active 36092 8006 Problem Anxiety F41.9 Active 67538607 Problem Adjustment disorder with mixed anxiety and depressed mood F43.23 Active 321859376 Problem Adjustment disorder with anxiety F43.22 Active 50005976 ALLERGIES Allergen (clinical drug ingredient) Drug/Non Drug Allergy do cumented on EMR Reaction Allergy Type Onset Date Status Sulfa (for allergy use only) Dyspnea, hives, facial swelli ng Drug Allergy Active Penicillin (For Allergies Use Only) Anaphylaxis Drug Aller gy Active Ciprofloxacin Joint Swelling Drug Allergy Activ e doxycycline Doxycycline([facility] Code:[address]-15) Diarrhea Drug Aller gy Active morphine Morphine Sulfate([facility] Code:[address]-11) Nausea/ Vomiting, Hives Drug Allergy Active oxycodone Oxycodone HCl([facility] Code:[address]-81) Angioedema Drug Bismark rgy Active ENCOUNTERS from 1980 to 2020-09-30 Encounter Location Date Provider Diagnosis [address] [address] Sep, Chi Le IMMUNIZATIONS No Information SOCIAL HISTORY Tobacco Use: Social History Observation Description Date Details (start date - stop date) Former Smoker Sex Assigned At : Social History Observation Description Sex Assigned At Unknown Education: Question Answer Notes Level of Education: Not Finished College Audit Question Answer Notes Total Score: 0 Interpretation: Alcohol Education Language: Question Answer Notes Languages spoken: Bhutanese Hinduism: Question Answer Notes Hinduism 21 Bahai Sexual Hx: Question Answer Notes Had sex [...] Adults _ 1 tab Orally Daily Active [place] 10-325 MG 1 tablet as needed Orally q8h prn mdd3 for 30 da ys 30 Aug, 2020 Active Aleve 220 MG 1 tablet with food or milk as needed Orally every 12 hrs Not-Taking Ibuprofen 200 MG 2 tablet with food or milk as needed Ora lly Three times a day Not-Taking Vitamin C Gummie 120 MG 2 GUMMIES Orally Daily Active Aleve 220 MG 2 tablet with food or milk as needed Orally every 12 hrs Active Flexeril 10 MG 1 tablet as needed Orally tid Not-Taking [place] 5-325 MG 1 tablet as needed Orally q8h prn mdd 3 Oct, Not-Taking Mirena 20 MCG/24HR as directed Intrauterine Active PROCEDURES No Information RESULTS No Results REASON FOR VISIT RLQ pain MEDICAL (GENERAL) HISTORY Type Description Date Medical [...] No Information FUNCTIONAL STATUS No Information ASSESSMENTS No Information PLAN OF TREATMENT Next Appt Details Provider Name:Chi Le, 2019-11 01:00:00 PM, [address] [facility], [place], [address], Provider Name:Alem Terry, 2020-12-30 09 :00:00 AM, [address] [place], [address], Insurance Providers Payer Name Payer Address Payer Phone Insured Name Patient Relati onship to Insured Coverage Start Date Coverage End Date BCBS MANUELA HURT PPO [phone] [facility] [employer] [place] [id number] Winston Driscoll
--- OUTSIDE RECORDS SUMMARY | 2020-11-21 08:03 | CCD ---
Continuity of Care Document (CCD) Created on: 10/24/2020 Shelbi Dunham External Reference #: [id number] : 1980 Sex: Female Author Author [facility] Organization Unknown Address [address] [facility], [address] [place] [address] Phone [phone] Care Team Providers Care Switchbox Assembler Name Role Phone Chi Le D.O.M [phone] Problems Active Problems Provider Date Allergic asthma [...] lb BMI (Body Mass Index) 39.9 kg/m2 [place] Body Weight 115 lb Weight 102.060 kg [...]
--- OUTSIDE RECORDS SUMMARY | 2020-11-21 08:03 | CCD ---
Author Author [facility] ems Organization [facility] ems Address Unknown Phone Unavailable Care Team Providers Care Nutrition Manager Name Role Phone Chi Le Unavailable PROBLEMS Type Condition ICD9-CM Code [id number] Code Onset Dates Condition S tatus SNOMED Code Notes Problem Lumbago with sciatica, right side M54.41 Active 30176280839338168 Problem Intervertebral disc disorder with radiculopathy of lumbosacral region M51.17 Active 55289899 Problem Protrusion of intervertebral disc of lumbosacral region M51.27 Active 79260598 Problem Sacroiliitis M46.1 Active 52545678 Problem Intervertebral disc disorders with radiculopathy , lumbosacral region M51.17 Active 01415312871184765 Problem Intervertebral disc disorders with radiculopathy , lumbar region M51.16 Active 004977091797281 Problem Rheumatoid arthritis, involv ing unspecified site, unspecified whether rheumatoid factor present M06.9 Active 21877657 Problem Myalgia, other site M79.18 Active 86272474 Problem Diverticulitis K57.92 Active 583140369 Problem Other chronic pain G89.29 Active 99094516 Problem Left-sided chest wall pain R07.89 Active 97792 8006 Problem Anxiety F41.9 Active 35471182 Problem Adjustment disorder with mixed anxiety and depressed mood F43.23 Active 703660115 Problem Adjustment disorder with anxiety F43.22 Active 31404601 ALLERGIES Allergen (clinical drug ingredient) Drug/Non Drug Allergy do cumented on EMR Reaction Allergy Type Onset Date Status Sulfa (for allergy use only) Dyspnea, hives, facial swelli ng Drug Allergy Active Penicillin (For Allergies Use Only) Anaphylaxis Drug Aller gy Active Ciprofloxacin Joint Swelling Drug Allergy Activ e doxycycline Doxycycline([facility] Code:[address]-13) Diarrhea Drug Aller gy Active morphine Morphine Sulfate([facility] Code:[address]-75) Nausea/ Vomiting, Hives Drug Allergy Active oxycodone Oxycodone HCl([facility] Code:[address]-62) Angioedema Drug Bismark rgy Active ENCOUNTERS from 1980 to 2020-10-21 Encounter [facility] [address] Oct, Chi Le Diverticulitis K57.92 IMMUNIZATIONS No Information SOCIAL HISTORY Tobacco Use: Social History Observation Description Date Details (start date - stop date) Former Smoker Sex Assigned At : Social History Observation Description Sex Assigned At Unknown Education: Question Answer Notes Level of Education: Not Finished College Audit Question Answer Notes Total Score: 0 Interpretation: Alcohol Education Language: Question Answer Notes Languages spoken: Macedonian Yarsani: Question Answer Notes Yarsani 21 Sabianism Sexual Hx: Question Answer Notes Had sex [...] Adults _ 1 tab Orally Daily Active [place] 10-325 MG 1 tablet as needed Orally [...] 1 tablet as needed Orally tid Not-Taking [place] 5-325 MG 1 tablet as needed Orally q8h prn mdd 3 16 Oct, 2019 Not-Taking Mirena 20 MCG/24HR as directed Intrauterine Active PROCEDURES No Information RESULTS No Results REASON FOR VISIT referral to [facility] MEDICAL (GENERAL) HISTORY Type Description Date Medical [...] Treatment Notes Treatm ent Clinical Notes Oct, Diverticulitis (ICD-10 - K57.92) PLAN OF TREATMENT Next Appt Details Provider Name:Chi Le, 2019-11 01:00:00 PM, [address] [facility], [place], [address], Provider Name:Alem Terry, 2020-12-30 09 :00:00 AM, [address] [place], [address], Insurance Providers Payer Name Payer Address Payer Phone Insured Name Patient Relati onship to Insured Coverage Start Date Coverage End Date BCBS [place] PPO [id number] [facility] [place] [address] Winston Driscoll
--- OUTSIDE RECORDS SUMMARY | 2020-11-21 08:04 | CCD ---
Author Author [facility] ems Organization [facility] ems Address Unknown Phone Unavailable Care Team Providers Care Exercise Rider Name Role Phone Chi Le Unavailable PROBLEMS Type Condition ICD9-CM Code PSE58-YS Code Onset Dates Condition S tatus SNOMED Code Notes Problem Lumbago with sciatica, right side M54.41 Active 03464912000904131 Problem Intervertebral disc disorder with radiculopathy of lumbosacral region M51.17 Active 38470728 Problem Protrusion of intervertebral disc of lumbosacral region M51.27 Active 38031008 Problem Sacroiliitis M46.1 Active 27753940 Problem Intervertebral disc disorders with radiculopathy , lumbosacral region M51.17 Active 08558432116564332 Problem Intervertebral disc disorders with radiculopathy , lumbar region M51.16 Active 196804726490382 Problem Rheumatoid arthritis, involv ing unspecified site, unspecified whether rheumatoid factor present M06.9 Active 43088829 Problem Myalgia, other site M79.18 Active 27917641 Problem Diverticulitis K57.92 Active 163866766 Problem Other chronic pain G89.29 Active 17914805 Problem Left-sided chest wall pain R07.89 Active 36434 8006 Problem Anxiety F41.9 Active 35215585 Problem Adjustment disorder with mixed anxiety and depressed mood F43.23 Active 184960279 Problem Adjustment disorder with anxiety F43.22 Active 79672663 ALLERGIES Allergen (clinical drug ingredient) Drug/Non Drug Allergy do cumented on EMR Reaction Allergy Type Onset Date Status oxycodone Oxycodone HCl([facility] Code:[address]-10) Angioedema Drug Bismark rgy Active Sulfa (for allergy use only) Dyspnea, hives, facial swelli ng Drug Allergy Active Penicillin (For Allergies Use Only) Anaphylaxis Drug Aller gy Active morphine Morphine Sulfate([facility] Code:[address]-46) Nausea/ Vomiting, Hives Drug Allergy Active ENCOUNTERS from 1980 to 2020-09-16 Encounter Location Date Provider Diagnosis [facility] [address] [facility] [address] Sep, Chi Le IMMUNIZATIONS No Information SOCIAL HISTORY Tobacco Use: Social History Observation Description Date Details (start date - stop date) Former Smoker Sex Assigned At : Social History Observation Description Sex Assigned At Unknown Education: Question Answer Notes Level of Education: Not Finished College Audit Question Answer Notes Total Score: 0 Interpretation: Alcohol Education Language: Question Answer Notes Languages spoken: Setswana Taoist: Question Answer Notes Taoist 21 Mandaeism Sexual Hx: Question Answer Notes Had sex [...] MEDICATIONS Medication SIG (Take, Route, Frequency, Duration) Start Date En d Date Status Mirena 20 MCG/24HR as directed Intrauterine Active Aleve 220 MG 1 tablet with food or milk as needed Orally every 12 h rs Not-Taking [place] 10-325 MG 1 tablet as needed Orally q8h prn mdd3 for 30 da ys 30 Aug, 2020 Active Flexeril 10 MG 1 tablet as needed Orally tid Not-Taking Aleve 220 MG 2 tablet with food or milk as needed Orally every 12 h rs Active Ibuprofen 200 MG 2 tablet with food or milk as needed Ora lly Three times a day Not-Taking Vitamin C Gummie 120 MG 2 GUMMIES Orally Daily Active Gabapentin 300 MG 1 capsule Orally , 1 by mout h every 8 hours 3 times a day for 30 Days Feb, Active Multivitamin Adults _ 1 tab Orally Daily Active [place] 5-325 MG 1 tablet as needed Orally q8h prn mdd 3 Oct, Not-Taking PROCEDURES No Information RESULTS No Results REASON FOR VISIT blood work MEDICAL (GENERAL) HISTORY Type Description Date Medical [...] of this, no labs to suggest so Surgical History tonsils 1984 Surgical History D&C 2005. 2009 Surgical History 2012 Surgical History DCS trial 06/2019 Surgical History DCS 09/2019 Hospitalization History CSections Hospitalization History Tonsillectomy Goals Section No Information Health Concerns No Information MEDICAL EQUIPMENT No Information MENTAL STATUS No Information FUNCTIONAL STATUS No Information ASSESSMENTS No Information PLAN OF TREATMENT Next Appt Details Provider Name:Alem Terry, 2020-09-23 09 :15:00 AM, [address] [place], [address], Provider Name:Chi Le, 2019-11 01:00:00 PM, [address] [facility], [place], [address], Insurance Providers Payer Name Payer Address Payer Phone Insured Name Patient Relati onship to Insured Coverage Start Date Coverage End Date BCBS MANUELA HURT PPO [phone] [facility] [employer] [place] [address] Winston Driscoll
--- OUTSIDE RECORDS SUMMARY | 2020-11-21 08:04 | CCD ---
Author Author [facility] Sy[facility] ems Organization [facility] ems Address Unknown Phone Unavailable Care Team Providers Care Online Advertising Director Name Role Phone Alem Terry Unavailable PROBLEMS Type Condition ICD9-CM Code DKV65-SJ Code Onset Dates Condition S tatus SNOMED Code Notes Problem Lumbago with sciatica, right side M54.41 Active 61163948012446373 Problem Intervertebral disc disorder with radiculopathy of lumbosacral region M51.17 Active 01064195 Problem Protrusion of intervertebral disc of lumbosacral region M51.27 Active 72079205 Problem Sacroiliitis M46.1 Active 98485950 Problem Intervertebral disc disorders with radiculopathy , lumbosacral region M51.17 Active 40407351079527625 Problem Intervertebral disc disorders with radiculopathy , lumbar region M51.16 Active 876195861027425 Problem Rheumatoid arthritis, involv ing unspecified site, unspecified whether rheumatoid factor present M06.9 Active 91517640 Problem Myalgia, other site M79.18 Active 84627217 Problem Diverticulitis K57.92 Active 375810627 Problem Other chronic pain G89.29 Active 74036783 Problem Left-sided chest wall pain R07.89 Active 37704 8006 Problem Anxiety F41.9 Active 06933793 Problem Adjustment disorder with mixed anxiety and depressed mood F43.23 Active 794716382 Problem Adjustment disorder with anxiety F43.22 Active 99294915 ALLERGIES Allergen (clinical drug ingredient) Drug/Non Drug Allergy do cumented on EMR Reaction Allergy Type Onset Date Status Sulfa (for allergy use only) Dyspnea, hives, facial swelli ng Drug Allergy Active Penicillin (For Allergies Use Only) Anaphylaxis Drug Aller gy Active Ciprofloxacin Joint Swelling Drug Allergy Activ e doxycycline Doxycycline([facility] Code:[address]-32) Diarrhea Drug Aller gy Active morphine Morphine Sulfate([facility] Code:[address]-99) Nausea/ Vomiting, Hives Drug Allergy Active oxycodone Oxycodone HCl([facility] Code:[address]-13) Angioedema Drug Bismark rgy Active ENCOUNTERS from 1980 to 2020-09-28 Encounter Location Date Provider Diagnosis [facility] [address] [place] [address] Sep, Alem Terry Intervertebral disc disorders with radic [...] Education Language: Question Answer Notes Languages spoken: Indian Jain: Question Answer Notes Jain 21 Lutheran Sexual Hx: Question Answer Notes Had sex [...] FOR REFERRAL No Information VITAL SIGNS Weight 228.6 lbs Sep, Height 63" in Sep, BMI 40.49 kg/m2 Sep, Heart Rate 87 /min Sep, Respiratory Rate 18 /min Sep, Temperature 97.7 degrees Fahrenheit Sep, Oximetry 98% Sep, Blood pressure systolic 138 mm Hg Sep, Blood pressure diastolic 72 mm Hg Sep, MEDICATIONS Medication SIG (Take, Route, Frequency, Duration) Notes Start Da te End Date Status Multivitamin Adults _ 1 tab Orally Daily Active [place] 10-325 MG 1 tablet as needed Orally q8h prn mdd3 for 30 da ys Aug, Active Aleve 220 MG 1 tablet with [...] 1 tablet as needed Orally tid Not-Taking [place] 5-325 MG 1 tablet as needed Orally q8h prn mdd 3 16 Oct, 2019 Not-Taking Mirena 20 MCG/24HR as directed Intrauterine Active PROCEDURES No Information RESULTS No Results REASON FOR VISIT back MEDICAL (GENERAL) HISTORY Type Description Date Medical [...] Treatment Notes Treatm ent Clinical Notes Sep, Intervertebral disc disorder s with radiculopathy, lumbar region (ICD-10 - M51.16) Advised to slowly reduce and discontinue gabapentin. Take 300 mg capsule twice a day until gone. Start gabapentin 100 mg once a day until gone. ISTOP registry reviewed and demonstrates complliance. (Ref # ) Brings in medications which is appropriate for what was dispensed. Recent urine toxicology reviewed. No unauthorized medications. No illicit substances and prescribed medications were present. Urine toxicology today , Risks of narcotic/opiod medications includes but is not limited to risk of dependance/development of addiction, mood disturbance and depression, osteoporosis, hormonal and labidal changes, respiratory depression and . Patient is advised NOT to DRIVE or drink ALCOHOL while on these medications. 09/26/20 1220 Patient given information about locations in the [facility] that will accept medications for disposal. Patti Quinn RN BSN PLAN OF TREATMENT Treatment Notes Assessment Notes Clinical Notes Intervertebral disc disorders with radiculopathy, lumb ar region Advised to slowly reduce and discontinue gabapentin. Take 300 mg capsule twice a day until gone. Start gabapentin 100 mg once a day until gone.ISTOP registry reviewed and demonstrates complliance. (Ref # ) Brings in medications which is appropriate for what was dispensed. Recent urine toxicology reviewed. No unauthorized medications. No illicit substances and prescribed medications were present.Urine toxicology today, Risks of narcotic/opiod medications includes but is not limited to risk of dependance/development of addiction, mood disturbance and depression, osteoporosis, hormonal and labidal changes, respiratory depression and . Patient is advised NOT to DRIVE or drink ALCOHOL while on these medications.09/26/20 1220 Patient given information about locations in the [facility] that will accept medications for disposal. Patti Quinn RN BSN Next Appt Details 3 Months Reason:medication management Provider Name:Chi Le, 2019-11 01:00:00 PM, [address] [facility], [place], [address], Provider Name:Alem Terry, 2020-12-30 09 :00:00 AM, [address] [place], [address], Follow Up:3 Monthsmedication management Insurance Providers Payer Name Payer Address Payer Phone Insured Name Patient Relati onship to Insured Coverage Start Date Coverage End Date BCARAM HURT PPO [phone] [facility] [place] [address] Winston Driscoll
--- OUTSIDE RECORDS SUMMARY | 2020-11-21 08:05 | CCD ---
Author Author [facility] Syst ems Organization [facility] ems Address Unknown Phone Unavailable Care Team Providers Care Business Relationship Manager Name Role Phone Alem Terry Unavailable PROBLEMS Type Condition ICD9-CM Code [id number] Code Onset Dates Condition S tatus SNOMED Code Notes Problem Other chronic pain G89.29 Active 25383382 Problem Myalgia, other site M79.18 Active 52203277 Problem Sacroiliitis M46.1 Active 35059921 Problem Lumbago with sciatica, right side M54.41 Active 13242790557638672 Problem Adjustment disorder with mixed anxiety and depressed mood F43.23 Active 447304127 Problem Intervertebral disc disorder with radiculopathy of lumbosacral region M51.17 Active 29930602 Problem Adjustment disorder with anxiety F43.22 Active 19747561 Problem Protrusion of intervertebral disc of lumbosacral region M51.27 Active 99601417 Problem Intervertebral disc disorders with radiculopathy , lumbosacral region M51.17 Active 11276148712764594 Problem Intervertebral disc disorders with radiculopathy , lumbar region M51.16 Active 724054083925458 Problem Left-sided chest wall pain R07.89 Active 30205 8006 Problem Anxiety F41.9 Active 30655323 ALLERGIES Allergen (clinical drug ingredient) Drug/Non Drug Allergy do cumented on EMR Reaction Allergy Type Onset Date Status oxycodone Oxycodone HCl([facility] Code:[address]-69) Angioedema Drug Bismark rgy Active Sulfa (for allergy use only) Dyspnea, hives, facial swelli ng Drug Allergy Active Penicillin (For Allergies Use Only) Anaphylaxis Drug Aller gy Active morphine Morphine Sulfate([facility] Code:[address]-79) Nausea/ Vomiting, Hives Drug Allergy Active ENCOUNTERS from 1980 to 2020-08-30 Encounter Location Date Provider Diagnosis [facility] [address] [place] [phone] Aug, Alem Terry IMMUNIZATIONS No Information SOCIAL HISTORY Tobacco Use: Social History Observation Description Date Details (start date - stop date) Former Smoker Sex Assigned At : Social History Observation Description Sex Assigned At Unknown Education: Question Answer Notes Level of Education: Not Finished College Audit Question Answer Notes Total Score: 0 Interpretation: Alcohol Education Language: Question Answer Notes Languages spoken: Croatian Zoroastrianism: Question Answer Notes Zoroastrianism 21 Holiness Sexual Hx: Question Answer Notes Had sex [...] Duration) Start Date En d Date Status Aleve 220 MG 2 tablet with food or milk as needed Orally every 12 h rs Active Aleve 220 MG 1 tablet with food or milk as needed Orally every 12 h rs Active Flexeril 10 MG 1 tablet as needed Orally tid Not-Taking Mirena 20 MCG/24HR as directed Intrauterine Active Ibuprofen 200 MG 2 tablet with food or milk as needed Ora lly Three times a day Active Stanley 5-325 MG 1 tablet as needed Orally q8h prn mdd 3 Oct, Not-Taking Vitamin C Gummie 120 MG 2 GUMMIES Orally Daily Active Multivitamin Adults _ 1 tab Orally Daily Active Gabapentin 300 MG 1 capsule Orally , 1 by mout h every 8 hours 3 times a day for 30 Days Feb, Active Stanley 10-325 MG 1 tablet as needed Orally q8h prn mdd3 May, Active PROCEDURES No Information RESULTS No Results REASON FOR VISIT NURSE MEDICAL (GENERAL) HISTORY Type Description Date Medical [...] Information ASSESSMENTS No Information PLAN OF TREATMENT Medication Medication Name Sig Start Date Stop Date Ibuprofen 200 MG 2 tablet with food or milk as needed Ora lly Three times a day Gabapentin 300 MG 1 capsule Orally , 1 by mout h every 8 hours 3 times a day for 30 Days Feb, Stanley 10-325 MG 1 tablet as needed Orally q8h prn mdd3 10 May, 2 020 Next Appt Details Provider Name:Chi Le, 2019-11 03:30:00 PM, [address] [place] [address], [address], Provider Name:Dillon Morrell, 2020-09-12 08 :30:00 AM, [address] [place] [address], [address], Provider Name:Alem Terry, 2020-09-23 09 :15:00 AM, [address] [place] [address], [phone], Insurance Providers Payer Name Payer Address Payer Phone Insured Name Patient Relati onship to Insured Coverage Start Date Coverage End Date BCBS [place] WATDaily PPO [phone] [facility] [place] [address] Winston Driscoll
--- OUTSIDE RECORDS SUMMARY | 2020-11-21 08:05 | CCD ---
Author Author [facility] Syst ems Organization [facility] ems Address Unknown Phone Unavailable Care Team Providers Care Slitter And Rewinder Name Role Phone Alem Terry Unavailable PROBLEMS Type Condition ICD9-CM Code ZCU05-AQ Code Onset Dates Condition S tatus SNOMED Code Notes Problem Lumbago with sciatica, right side M54.41 Active 63118891056836243 Problem Intervertebral disc disorder with radiculopathy of lumbosacral region M51.17 Active 17091117 Problem Protrusion of intervertebral disc of lumbosacral region M51.27 Active 57034751 Problem Sacroiliitis M46.1 Active 19302497 Problem Intervertebral disc disorders with radiculopathy , lumbosacral region M51.17 Active 10743520261441535 Problem Intervertebral disc disorders with radiculopathy , lumbar region M51.16 Active 506894802260904 Problem Rheumatoid arthritis, involv ing unspecified site, unspecified whether rheumatoid factor present M06.9 Active 63313058 Problem Myalgia, other site M79.18 Active 84013596 Problem Diverticulitis K57.92 Active 565392700 Problem Other chronic pain G89.29 Active 49939480 Problem Left-sided chest wall pain R07.89 Active 45247 8006 Problem Anxiety F41.9 Active 55168315 Problem Adjustment disorder with mixed anxiety and depressed mood F43.23 Active 053934352 Problem Adjustment disorder with anxiety F43.22 Active 69829394 ALLERGIES Allergen (clinical drug ingredient) Drug/Non Drug Allergy do cumented on EMR Reaction Allergy Type Onset Date Status oxycodone Oxycodone HCl([facility] Code:[address]-04) Angioedema Drug Bismark rgy Active Sulfa (for allergy use only) Dyspnea, hives, facial swelli ng Drug Allergy Active Penicillin (For Allergies Use Only) Anaphylaxis Drug Aller gy Active morphine Morphine Sulfate([facility] Code:[address]-23) Nausea/ Vomiting, Hives Drug Allergy Active ENCOUNTERS from 1980 to 2020-09-12 Encounter Location Date Provider Diagnosis [facility] [address] [place] [phone] Sep, Alem Terry IMMUNIZATIONS No Information SOCIAL HISTORY Tobacco Use: Social History Observation Description Date Details (start date - stop date) Former Smoker Sex Assigned At : Social History Observation Description Sex Assigned At Unknown Education: Question Answer Notes Level of Education: Not Finished College Audit Question Answer Notes Total Score: 0 Interpretation: Alcohol Education Language: Question Answer Notes Languages spoken: Romansh Bahai: Question Answer Notes Bahai 21 Religious Sexual Hx: Question Answer Notes Had sex [...] needed Orally every 12 h rs Not-Taking Wynne 10-325 MG 1 tablet as needed Orally [...] Adults _ 1 tab Orally Daily Active Wynne 5-325 MG 1 tablet as needed Orally q8h prn mdd 3 Oct, Not-Taking PROCEDURES No Information RESULTS No Results REASON FOR VISIT CONCERNS REGARDING UPCOMING APPT MEDICAL (GENERAL) HISTORY Type Description Date Medical [...] Name:Alem Terry, 2020-09-23 09 :15:00 AM, [address] [place], [address], Provider Name:Chi Le, 2019-11 01:00:00 PM, [address] [facility], [place], [address], Insurance Providers Payer Name Payer Address Payer Phone Insured Name Patient Relati onship to Insured Coverage Start Date Coverage End Date BCBS MANUELA HURT PPO [phone] [facility] [place] [address] Winston Driscoll
--- OUTSIDE RECORDS SUMMARY | 2020-11-21 08:05 | CCD ---
Author Author [facility] Syst ems Organization [facility] ems Address Unknown Phone Unavailable Care Team Providers Care Freight Broker Agent Name Role Phone Alem Terry Unavailable PROBLEMS Type Condition ICD9-CM Code OZY22-GE Code Onset Dates Condition S tatus SNOMED Code Notes Problem Other chronic pain G89.29 Active 56436931 Problem Myalgia, other site M79.18 Active 38826485 Problem Sacroiliitis M46.1 Active 84997493 Problem Lumbago with sciatica, right side M54.41 Active 17242448509626218 Problem Adjustment disorder with mixed anxiety and depressed mood F43.23 Active 607696990 Problem Intervertebral disc disorder with radiculopathy of lumbosacral region M51.17 Active 88861277 Problem Adjustment disorder with anxiety F43.22 Active 99889906 Problem Protrusion of intervertebral disc of lumbosacral region M51.27 Active 20048933 Problem Intervertebral disc disorders with radiculopathy , lumbosacral region M51.17 Active 49021477544217559 Problem Intervertebral disc disorders with radiculopathy , lumbar region M51.16 Active 103104537746767 Problem Left-sided chest wall pain R07.89 Active 20875 8006 Problem Anxiety F41.9 Active 91382473 ALLERGIES Allergen (clinical drug ingredient) Drug/Non Drug Allergy do cumented on EMR Reaction Allergy Type Onset Date Status oxycodone Oxycodone HCl([facility] Code:[address]-14) Angioedema Drug Bismark rgy Active Sulfa (for allergy use only) Dyspnea, hives, facial swelli ng Drug Allergy Active Penicillin (For Allergies Use Only) Anaphylaxis Drug Aller gy Active morphine Morphine Sulfate([facility] Code:[address]-67) Nausea/ Vomiting, Hives Drug Allergy Active ENCOUNTERS from 1980 to 2020-09-07 Encounter Location Date Provider Diagnosis [facility] [address] [place] [phone] Aug, Alem Terry Intervertebral disc disorders with radic [...] Language: Question Answer Notes Languages spoken: Indian Buddhism: Question Answer Notes Buddhism 21 Pentecostal Sexual Hx: Question Answer Notes Had sex [...] Ora lly Three times a day Active Faxon 5-325 MG 1 tablet as needed Orally q8h prn mdd 3 16 Oct, 2019 Not-Taking Vitamin C Gummie 120 MG 2 GUMMIES Orally Daily Active Multivitamin Adults _ 1 tab Orally Daily Active Gabapentin 300 MG 1 capsule Orally , 1 by mout h every 8 hours 3 times a day for 30 Days Feb, Active Faxon 10-325 MG 1 tablet as needed Orally q8h prn mdd3 for 30 da ys 30 Aug, 2020 Active PROCEDURES No Information RESULTS No Results REASON FOR VISIT Refill hydrocodone MEDICAL (GENERAL) HISTORY Type Description Date Medical [...] labs to suggest so Surgical History tonsils 1983 Surgical History D&C 2005. 2009 Surgical History 2012 Surgical History DCS trial 06/2019 Surgical History DCS 09/2019 Hospitalization History CSections Hospitalization History Tonsillectomy Goals Section No Information Health Concerns No Information MEDICAL EQUIPMENT No Information MENTAL STATUS No Information FUNCTIONAL STATUS No Information ASSESSMENTS Encounter Date Diagnosis Notes Aug, Intervertebral disc disorder s with radiculopathy, lumbar region (ICD-10 - M51.16) PLAN OF TREATMENT Medication Medication Name Sig Start Date Stop Date Ibuprofen 200 MG 2 tablet with food or milk as needed Ora lly Three times a day Gabapentin 300 MG 1 capsule Orally , 1 by mout h every 8 hours 3 times a day for 30 Days Feb, Faxon 10-325 MG 1 tablet as needed Orally q8h prn mdd3 for 30 da ys Aug, Next Appt Details Provider Name:Chi Le, 2019-11 03:30:00 PM, [address] [place] [address], [address], Provider Name:Dillon Morrell, 2020-09-12 08 :30:00 AM, [address] [place] [address], [address], Provider Name:Alem Terry, 2020-09-23 09 :15:00 AM, [address] [place], [address], Insurance Providers Payer Name Payer Address Payer Phone Insured Name Patient Relati onship to Insured Coverage Start Date Coverage End Date BCARAM HURT PPO [phone] [facility] [place] [address] Winston Driscoll
--- OUTSIDE RECORDS SUMMARY | 2020-11-21 08:06 | CCD ---
Author Author [facility] Syst ems Organization [facility] ems Address Unknown Phone Unavailable Care Team Providers Care Roll Filler Name Role Phone Chi Le Unavailable PROBLEMS Type Condition ICD9-CM Code TOC88-XD Code Onset Dates Condition S tatus SNOMED Code Notes Problem Other chronic pain G89.29 Active 90727334 Problem Myalgia, other site M79.18 Active 80771069 Problem Sacroiliitis M46.1 Active 42567402 Problem Lumbago with sciatica, right side M54.41 Active 93946443106021635 Problem Adjustment disorder with mixed anxiety and depressed mood F43.23 Active 866126550 Problem Intervertebral disc disorder with radiculopathy of lumbosacral region M51.17 Active 37117907 Problem Adjustment disorder with anxiety F43.22 Active 96982688 Problem Protrusion of intervertebral disc of lumbosacral region M51.27 Active 16801022 Problem Intervertebral disc disorders with radiculopathy , lumbosacral region M51.17 Active 47465247362464386 Problem Intervertebral disc disorders with radiculopathy , lumbar region M51.16 Active 333293881756935 Problem Left-sided chest wall pain R07.89 Active 31187 8006 Problem Anxiety F41.9 Active 74868716 ALLERGIES Allergen (clinical drug ingredient) Drug/Non Drug Allergy do cumented on EMR Reaction Allergy Type Onset Date Status oxycodone Oxycodone HCl([facility] Code:[address]-15) Angioedema Drug Bismark rgy Active Sulfa (for allergy use only) Dyspnea, hives, facial swelli ng Drug Allergy Active Penicillin (For Allergies Use Only) Anaphylaxis Drug Aller gy Active morphine Morphine Sulfate([facility] Code:[address]-51) Nausea/ Vomiting, Hives Drug Allergy Active ENCOUNTERS from 1980 to 2020-08-29 Encounter Location Date Provider Diagnosis [facility] [address]ja [address] [place] [phone] Aug, Chimartin Shawhawa IMMUNIZATIONS No Information SOCIAL HISTORY Tobacco Use: Social History Observation Description Date Details (start date - stop date) Former Smoker Sex Assigned At : Social History Observation Description Sex Assigned At Unknown Education: Question Answer Notes Level of Education: Not Finished College Audit Question Answer Notes Total Score: 0 Interpretation: Alcohol Education Language: Question Answer Notes Languages spoken: Romansh Cheondoism: Question Answer Notes Cheondoism 21 Worship Sexual Hx: Question Answer Notes Had sex [...] Ora lly Three times a day Active Fedora 5-325 MG 1 tablet as needed Orally q8h prn mdd 3 Oct, Not-Taking Vitamin C Gummie 120 MG 2 GUMMIES Orally Daily Active Multivitamin Adults _ 1 tab Orally Daily Active Gabapentin 300 MG 1 capsule Orally , 1 by mout h every 8 hours 3 times a day for 30 Days Feb, Active Fedora 10-325 MG 1 tablet as needed Orally q8h prn mdd3 May, Active PROCEDURES No Information RESULTS No Results REASON FOR VISIT D/C medications MEDICAL (GENERAL) HISTORY Type Description Date Medical [...] times a day for 30 Days Feb, Fedora 10-325 MG 1 tablet as needed Orally q8h prn mdd3 10 May, 2 020 Next Appt Details Provider Name:Chi Le, 2019-11 03:30:00 PM, [address] [place] [address], [address], Provider Name:Dillon Morrell, 2020-09-12 08 :30:00 AM, [address] [place] [address], [address], Provider Name:Alem Terry, 2020-09-23 09 :15:00 AM, [address] [place], [phone], Insurance Providers Payer Name Payer Address Payer Phone Insured Name Patient Relati onship to Insured Coverage Start Date Coverage End Date BCBS [place] BLU PPO [phone] [facility] [email or web address] [place] [address] Winston Driscoll
--- OUTSIDE RECORDS SUMMARY | 2020-11-21 08:06 | CCD ---
Author Author [facility] Syst ems Organization [facility] ems Address Unknown Phone Unavailable Care Team Providers Care Intermodal Dispatcher Name Role Phone Chi Le Unavailable PROBLEMS Type Condition ICD9-CM Code ZRI86-XT Code Onset Dates Condition S tatus SNOMED Code Notes Problem Other chronic pain G89.29 Active 04859565 Problem Myalgia, other site M79.18 Active 99633245 Problem Sacroiliitis M46.1 Active 10660536 Problem Lumbago with sciatica, right side M54.41 Active 18449107144548553 Problem Adjustment disorder with mixed anxiety and depressed mood F43.23 Active 307164420 Problem Intervertebral disc disorder with radiculopathy of lumbosacral region M51.17 Active 55879213 Problem Adjustment disorder with anxiety F43.22 Active 71299013 Problem Protrusion of intervertebral disc of lumbosacral region M51.27 Active 90220792 Problem Intervertebral disc disorders with radiculopathy , lumbosacral region M51.17 Active 15989738693426372 Problem Intervertebral disc disorders with radiculopathy , lumbar region M51.16 Active 645586976177576 Problem Left-sided chest wall pain R07.89 Active 91287 8006 Problem Anxiety F41.9 Active 42197515 ALLERGIES Allergen (clinical drug ingredient) Drug/Non Drug Allergy do cumented on EMR Reaction Allergy Type Onset Date Status oxycodone Oxycodone HCl([facility] Code:[address]-69) Angioedema Drug Bismark rgy Active Sulfa (for allergy use only) Dyspnea, hives, facial swelli ng Drug Allergy Active Penicillin (For Allergies Use Only) Anaphylaxis Drug Aller gy Active morphine Morphine Sulfate([facility] Code:[address]-87) Nausea/ Vomiting, Hives Drug Allergy Active ENCOUNTERS from 1980 to 2020-08-29 Encounter Location Date Provider Diagnosis [facility] Marija [address] [place] [phone] Aug, Chiedelmira Shawhawa IMMUNIZATIONS No Information SOCIAL HISTORY Tobacco Use: Social History Observation Description Date Details (start date - stop date) Former Smoker Sex Assigned At : Social History Observation Description Sex Assigned At Unknown Education: Question Answer Notes Level of Education: Not Finished College Audit Question Answer Notes Total Score: 0 Interpretation: Alcohol Education Language: Question Answer Notes Languages spoken: Bulgarian Jainism: Question Answer Notes Jainism 21 Quaker Sexual Hx: Question Answer Notes Had sex [...] Ora lly Three times a day Active [place] 5-325 MG 1 tablet as needed Orally q8h prn mdd 3 Oct, Not-Taking Vitamin C Gummie 120 MG 2 GUMMIES Orally Daily Active Multivitamin Adults _ 1 tab Orally Daily Active Gabapentin 300 MG 1 capsule Orally , 1 by mout h every 8 hours 3 times a day for 30 Days Feb, Active [place] 10-325 MG 1 tablet as needed Orally q8h prn mdd3 May, Active PROCEDURES No Information RESULTS No Results REASON FOR VISIT Loose stools, rectal bleeding MEDICAL (GENERAL) HISTORY Type Description Date Medical [...] times a day for 30 Days Feb, [place] 10-325 MG 1 tablet as needed Orally q8h prn mdd3 10 May, 2 020 Next Appt Details Provider Name:Chi Le, 2019-11 03:30:00 PM, [address] [place] [address], [address], Provider Name:Dillon Morrell, 2020-09-12 08 :30:00 AM, [address] [place] [address], [address], Provider Name:Alem Terry, 2020-09-23 09 :15:00 AM, [address] [place], [address], Insurance Providers Payer Name Payer Address Payer Phone Insured Name Patient Relati onship to Insured Coverage Start Date Coverage End Date BCBS [place] BLU PPO [phone] [facility] [employer] [address] Winston Driscoll
--- OUTSIDE RECORDS SUMMARY | 2020-11-21 08:06 | CCD ---
Author Author [facility] Syst ems Organization [facility] ems Address Unknown Phone Unavailable Care Team Providers Care Biology Laboratory Assistant Name Role Phone Chi Le Unavailable PROBLEMS Type Condition ICD9-CM Code SOI00-CS Code Onset Dates Condition S tatus SNOMED Code Notes Problem Other chronic pain G89.29 Active 92751331 Problem Myalgia, other site M79.18 Active 86208219 Problem Sacroiliitis M46.1 Active 00878674 Problem Lumbago with sciatica, right side M54.41 Active 29955637131677875 Problem Adjustment disorder with mixed anxiety and depressed mood F43.23 Active 070891551 Problem Intervertebral disc disorder with radiculopathy of lumbosacral region M51.17 Active 94730006 Problem Adjustment disorder with anxiety F43.22 Active 22861369 Problem Protrusion of intervertebral disc of lumbosacral region M51.27 Active 53630316 Problem Intervertebral disc disorders with radiculopathy , lumbosacral region M51.17 Active 37033380145439502 Problem Intervertebral disc disorders with radiculopathy , lumbar region M51.16 Active 954565522652904 Problem Left-sided chest wall pain R07.89 Active 38299 8006 Problem Anxiety F41.9 Active 59520804 ALLERGIES Allergen (clinical drug ingredient) Drug/Non Drug Allergy do cumented on EMR Reaction Allergy Type Onset Date Status oxycodone Oxycodone HCl([facility] Code:[address]-33) Angioedema Drug Bismark rgy Active Sulfa (for allergy use only) Dyspnea, hives, facial swelli ng Drug Allergy Active Penicillin (For Allergies Use Only) Anaphylaxis Drug Aller gy Active morphine Morphine Sulfate([facility] Code:[address]-07) Nausea/ Vomiting, Hives Drug Allergy Active ENCOUNTERS from 1980 to 2020-08-27 Encounter Location Date Provider Diagnosis [facility] Marija [address] [place] [phone] Aug, Chiedelmira Shawhawa IMMUNIZATIONS No Information SOCIAL HISTORY Tobacco Use: Social History Observation Description Date Details (start date - stop date) Former Smoker Sex Assigned At : Social History Observation Description Sex Assigned At Unknown Education: Question Answer Notes Level of Education: Not Finished College Audit Question Answer Notes Total Score: 0 Interpretation: Alcohol Education Language: Question Answer Notes Languages spoken: Spanish Religious: Question Answer Notes Religious 21 Religion Sexual Hx: Question Answer Notes Had sex [...] Ora lly Three times a day Active [place] 5-325 MG 1 tablet as needed Orally q8h prn mdd 3 Oct, Not-Taking Vitamin C Gummie 120 MG 2 GUMMIES Orally Daily Active Multivitamin Adults _ 1 tab Orally Daily Active Gabapentin 300 MG 1 capsule Orally , 1 by mout h every 8 hours 3 times a day for 30 Days Feb, Active [place] 10-325 MG 1 tablet as needed Orally q8h prn mdd3 May, Active PROCEDURES No Information RESULTS No Results REASON FOR VISIT diflucan MEDICAL (GENERAL) HISTORY Type Description Date Medical [...] times a day for 30 Days Feb, [place] 10-325 MG 1 tablet as needed Orally q8h prn mdd3 10 May, 2 020 Next Appt Details Provider Name:Chi Le, 2019-11 03:30:00 PM, [address] [place] [address], [address], Provider Name:Dillon Morrell, 2020-09-12 08 :30:00 AM, [address] [place] [address], [address], Provider Name:Alem Terry, 2020-09-23 09 :15:00 AM, [address] [place], [address], Insurance Providers Payer Name Payer Address Payer Phone Insured Name Patient Relati onship to Insured Coverage Start Date Coverage End Date BCBS [place] BLU PPO [phone] [facility] [employer] [id number] Winston Driscoll
--- OUTSIDE RECORDS SUMMARY | 2020-11-21 08:08 | CCD ---
Author Author [facility] Address Unknown Phone Unavailable Care Team Providers Care Supervisor Reclamation Name Role Phone Magen Jr, Edward Griffin PA Unavailable Unavailable Magen Jr, Edward Griffin PA Unavailable Unavailable Magen Jr, Edward Griffin PA Unavailable Unavailable Magen Jr, Edward Griffin PA Unavailable Unavailable Magen Jr, Edward Griffin PA Unavailable Unavailable Magen Jr, Edward Griffin PA Unavailable Unavailable Magen Jr, Edward Griffin PA Unavailable Unavailable Magen Jr, Edward Griffin PA Unavailable Unavailable Magen Jr, Edward Griffin PA Unavailable Unavailable Magen Jr, Edward Griffin PA Unavailable Unavailable Magen Jr, Edward Griffin PA Unavailable Unavailable Magen Jr, Edward Griffin PA Unavailable Unavailable Magen Jr, Edward Griffin PA Unavailable Unavailable Magen Jr, Edward Griffin PA Unavailable Unavailable Magen Jr, Edward Griffin PA Unavailable Unavailable Magen Jr, Edward Griffin PA Unavailable Unavailable Magen Jr, Edward Griffin PA Unavailable Unavailable Magen Jr, Edward Griffin PA Unavailable Unavailable Magen Jr, Edward Griffin PA Unavailable Unavailable Magen Jr, Edward Griffin PA Unavailable Unavailable Magen Jr, Edward Griffin PA Unavailable Unavailable Magen Jr, Edward Griffin PA Unavailable Unavailable Magen Jr, Edward Griffin PA Unavailable Unavailable Magen Jr, Edward Griffin PA Unavailable Unavailable Magen Jr, Edward Griffin PA Unavailable Unavailable Magen Jr, Edward Griffin PA Unavailable Unavailable Magen Jr, Edward Griffin PA Unavailable Unavailable Magen Jr, Edward Griffin PA Unavailable Unavailable Magen Jr, Edward Griffin PA Unavailable Unavailable Magen Jr, Edward Griffin PA Unavailable Unavailable Magen Jr, Edward Griffin PA Unavailable Unavailable Magen Jr, Edward Griffin PA Unavailable Unavailable Magen Jr, Edward Griffin PA Unavailable Unavailable Magen Jr, Edward Griffin PA Unavailable Unavailable Magen Jr, Edward Griffin PA Unavailable Unavailable Magen Jr, Edward Griffin PA Unavailable Unavailable Magen Jr, Edward Griffin PA Unavailable Unavailable Magen Jr, Edward Griffin PA Unavailable Unavailable Magen Jr, Edward Griffin PA Unavailable Unavailable Magen Jr, Edward Griffin PA Unavailable Unavailable Magen Jr, Edward Griffin PA Unavailable Unavailable Magen Jr, Edward Griffin PA Unavailable Unavailable Magen Jr, Edward Griffin PA Unavailable Unavailable Magen Jr, Edward Griffin PA Unavailable Unavailable Magen Jr, Edward Griffin PA Unavailable Unavailable Magen Jr, Edward Griffin PA Unavailable Unavailable Magen Jr, Edward Griffin PA Unavailable Unavailable Magen Jr, Edward Griffin PA Unavailable Unavailable Magen Jr, Edward Griffin PA Unavailable Unavailable Magen Jr, Edward Griffin PA Unavailable Unavailable Magen Jr, Edward Griffin PA Unavailable Unavailable Magen Jr, Edward Griffin PA Unavailable Unavailable Magen Jr, Edward Griffin PA Unavailable Unavailable Magen Jr, Edward Griffin PA Unavailable Unavailable Magen Jr, Edward Griffin PA Unavailable Unavailable Magen Jr, Edward Griffin PA Unavailable Unavailable Magen Jr, Edward Griffin PA Unavailable Unavailable Magen Jr, Edward Griffin PA Unavailable Unavailable Magen Jr, Edward Griffin PA Unavailable Unavailable Magen Jr, Edward Griffin PA Unavailable Unavailable Magen Jr, Edward Griffin PA Unavailable Unavailable Magen Jr, Edward Griffin PA Unavailable Unavailable Magen Jr, Edward Griffin PA Unavailable Unavailable Magen Jr, Edward Griffin PA Unavailable Unavailable Magen Jr, Edward Griffin PA Unavailable Unavailable Magen Jr, Edward Griffin PA Unavailable Unavailable Magen Jr, Edward Griffin PA Unavailable Unavailable Magen Jr, Edward Griffin PA Unavailable Unavailable Magen Jr, Edward Girffin PA Unavailable Unavailable Magen Jr, Edward Griffin PA Unavailable Unavailable Magen Jr, Edward Griffin PA Unavailable Unavailable Magen Jr, Edward Griffin PA Unavailable Unavailable Magen Jr, Edward Griffin PA Unavailable Unavailable Magen Jr, Edward Griffin PA Unavailable Unavailable Magen Jr, Edward Griffin PA Unavailable Unavailable Magen Jr, Edward Griffin PA Unavailable Unavailable Magen Jr, Edward Griffin PA Unavailable Unavailable Magen Jr, Edward Griffin PA Unavailable Unavailable CANAL, GAMALIEL PA Unavailable Unavailable CANAL, GAMALIEL PA Unavailable Unavailable CANAL, GAMALIEL PA Unavailable Unavailable CANAL, GAMALIEL PA Unavailable Unavailable CANAL, GAMALIEL PA Unavailable Unavailable CANAL, GAMALIEL PA Unavailable Unavailable CANAL, GAMALIEL PA Unavailable Unavailable CANAL, GAMALIEL PA Unavailable Unavailable CANAL, GAMALIEL PA Unavailable Unavailable CANAL, GAMALIEL PA Unavailable Unavailable CANAL, GAMALIEL PA Unavailable Unavailable CANAL, GAMALIEL PA Unavailable Unavailable CANAL, GAMALIEL PA Unavailable Unavailable CANAL, GAMALIEL PA Unavailable Unavailable CANAL, GAMALIEL PA Unavailable Unavailable CANAL, GAMALIEL PA Unavailable Unavailable CANAL, GAMALIEL PA Unavailable Unavailable CANAL, GAMALIEL PA Unavailable Unavailable CANAL, GAMALIEL PA Unavailable Unavailable CANAL, GAMALIEL PA Unavailable Unavailable CANAL, GAMALIEL PA Unavailable Unavailable CANAL, GAMALIEL PA Unavailable Unavailable CANAL, GAMALIEL PA Unavailable Unavailable CANAL, GAMALIEL PA Unavailable Unavailable CANAL, GAMALIEL PA Unavailable Unavailable CANAL, GAMALIEL PA Unavailable Unavailable CANAL, GAMALIEL PA Unavailable Unavailable CANAL, GAMALIEL PA Unavailable Unavailable CANAL, GAMALIEL PA Unavailable Unavailable CANAL, GAMALIEL PA Unavailable Unavailable CANAL, GAMALIEL PA Unavailable Unavailable Sheffield, M Raymond PA Unavailable Unavailable Sheffield, M Raymond PA Unavailable Unavailable Sheffield, M Raymond PA Unavailable Unavailable Sheffield, M Raymond PA Unavailable Unavailable Sheffield, M Raymond PA Unavailable Unavailable Sheffield, M Raymond PA Unavailable Unavailable Sheffield, M Raymond PA Unavailable Unavailable Sheffield, M Raymond PA Unavailable Unavailable Sheffield, M Raymond PA Unavailable Unavailable Sheffield, M Raymond PA Unavailable Unavailable Sheffield, M Raymond PA Unavailable Unavailable Sheffield, M Raymond PA Unavailable Unavailable Sheffield, M Raymond PA Unavailable Unavailable Sheffield, M Raymond PA Unavailable Unavailable Sheffield, M Raymond PA Unavailable Unavailable Sheffield, M Raymond PA Unavailable Unavailable Sheffield, M Raymond PA Unavailable Unavailable Sheffield, M Raymond PA Unavailable Unavailable Sheffield, M Raymond PA Unavailable Unavailable Sheffield, M Raymond PA Unavailable Unavailable Sheffield, M Raymond PA Unavailable Unavailable Sheffield, M Raymond PA Unavailable Unavailable Sheffield, M Raymond PA Unavailable Unavailable Sheffield, M Raymond PA Unavailable Unavailable Sheffield, M Raymond PA Unavailable Unavailable Sheffield, M Raymond PA Unavailable Unavailable Sheffield, M Raymond PA Unavailable Unavailable Sheffield, M Raymond PA Unavailable Unavailable Sheffield, M Raymond PA Unavailable Unavailable Sheffield, M Raymond PA Unavailable Unavailable Sheffield, M Raymond PA Unavailable Unavailable Sheffield, M Raymond PA Unavailable Unavailable Sheffield, M Raymond PA Unavailable Unavailable Sheffield, M Raymond PA Unavailable Unavailable Sheffield, M Raymond PA Unavailable Unavailable Sheffield, M Raymond PA Unavailable Unavailable Sheffield, M Raymond PA Unavailable Unavailable Sheffield, M Raymond PA Unavailable Unavailable Sheffield, M Raymond PA Unavailable Unavailable Sheffield, M Raymond PA Unavailable Unavailable Sheffield, M Raymond PA Unavailable Unavailable Sheffield, M Raymond PA Unavailable Unavailable Sheffield, M Raymond PA Unavailable Unavailable Sheffield, M Raymond PA Unavailable Unavailable Sheffield, M Raymond PA Unavailable Unavailable Sheffield, M Raymond PA Unavailable Unavailable Perla Cabrera MD Unavailable Unavailable Perla Cabrera MD Unavailable Unavailable Perla Cabrera MD Unavailable Unavailable Perla Cabrera MD Unavailable Unavailable Perla Cabrera MD Unavailable Unavailable Perla Cabrera MD Unavailable Unavailable ePrla Cabrera MD Unavailable Unavailable Perla Cabrera MD Unavailable Unavailable Perla Cabrera MD Unavailable Unavailable Perla Cabrera MD Unavailable Unavailable Perla Cabrera MD Unavailable Unavailable Perla Cabrera MD Unavailable Unavailable Perla Cabrera MD Unavailable Unavailable Perla Cabrera MD Unavailable Unavailable Perla Cabrera MD Unavailable Unavailable Perla Cabrera MD Unavailable Unavailable Perla Cabrera MD Unavailable Unavailable Perla Cabrera MD Unavailable Unavailable Perla Cabrera MD Unavailable Unavailable Perla Cabrera MD Unavailable Unavailable Perla Cabrera MD Unavailable Unavailable Perla Cabrera MD Unavailable Unavailable Perla Cabrera MD Unavailable Unavailable Perla Cabrera MD Unavailable Unavailable Perla Cabrera MD Unavailable Unavailable Perla Cabrera MD Unavailable Unavailable Perla Cabrera MD Unavailable Unavailable Perla Cabrera MD Unavailable Unavailable Perla Cabrera MD Unavailable Unavailable Perla Cabrera MD Unavailable Unavailable Perla Cabrera MD Unavailable Unavailable Perla Cabrera MD Unavailable Unavailable Perla Cabrera MD Unavailable Unavailable Perla Cabrera MD Unavailable Unavailable Perla Cabrera MD Unavailable Unavailable Perla Cabrera MD Unavailable Unavailable Perla Cabrera MD Unavailable Unavailable Perla Cabrera MD Unavailable Unavailable Perla Cabrera MD Unavailable Unavailable Perla Cabrera MD Unavailable Unavailable Perla Cabrera MD Unavailable Unavailable Perla Cabrera MD Unavailable Unavailable Perla Cabrera MD Unavailable Unavailable Perla Cabrera MD Unavailable Unavailable Perla Cabrera MD Unavailable Unavailable CabreraPerla MD Unavailable Unavailable CabreraPerla MD Unavailable Unavailable Cabrera, Perla Cohen MD Unavailable Unavailable Cabrera, Perla Cohen MD Unavailable Unavailable Cabrera, Perla Cohen MD Unavailable Unavailable Cabrera, Perla Cohen MD Unavailable Unavailable Cabrera, Perla Cohen MD Unavailable Unavailable Cabrera, Perla Cohen MD Unavailable Unavailable Cabrera, Perla Cohen MD Unavailable Unavailable CabreraPerla MD Unavailable Unavailable Cabrera, Perla Cohen MD Unavailable Unavailable Cabrera, Perla Cohen MD Unavailable Unavailable Cabrera, Perla Cohen MD Unavailable Unavailable Cabrera, Perla Cohen MD Unavailable Unavailable Cabrera, Perla Cohen MD Unavailable Unavailable Cabrera, Perla Cohen MD Unavailable Unavailable Cabrera, Perla Cohen MD Unavailable Unavailable Cabrera, Perla Cohen MD Unavailable Unavailable Cabrera, Perla Cohen MD Unavailable Unavailable Cabrera, Perla Cohen MD Unavailable Unavailable Cabrera, Perla Cohen MD Unavailable Unavailable Cabrera, Perla Cohen MD Unavailable Unavailable Cabrera, Perla Cohen MD Unavailable Unavailable Cabrera, Perla Cohen MD Unavailable Unavailable Cabrera, Perla Cohen MD Unavailable Unavailable Cabrera, Perla Cohen MD Unavailable Unavailable Cabrera, Perla Cohen MD Unavailable Unavailable Cabrera, Perla Cohen MD Unavailable Unavailable Cabrera, Perla Cohen MD Unavailable Unavailable Cabrera, Perla Cohen MD Unavailable Unavailable Cabrera, Perla Cohen MD Unavailable Unavailable Cabrera, Perla Cohen MD Unavailable Unavailable Cabrera, Perla Cohen MD Unavailable Unavailable Cabrera, Perla Cohen MD Unavailable Unavailable Cabrera, Perla Cohen MD Unavailable Unavailable Cabrera, Perla Cohen MD Unavailable Unavailable Cabrera, Perla Cohen MD Unavailable Unavailable Cabrera, Perla Cohen MD Unavailable Unavailable CabreraPerla MD Unavailable Unavailable CabreraPerla MD Unavailable Unavailable Cabrera, Perla Cohen MD Unavailable Unavailable Cabrera, Perla Cohen MD Unavailable Unavailable Perla Cabrera MD Unavailable Unavailable Perla Cabrera MD Unavailable Unavailable LEIGH COOK MD Unavailable Unavailable LEIGH COOK MD Unavailable Unavailable LEIGH COOK MD Unavailable Unavailable LEIGH COOK MD Unavailable Unavailable LEIGH COOK MD Unavailable Unavailable LEIGH COOK MD Unavailable Unavailable LEIGH COOK MD Unavailable Unavailable LEIGH COOK MD Unavailable Unavailable LEIGH COOK MD Unavailable Unavailable LEIGH COOK MD Unavailable Unavailable LEIGH COOK MD Unavailable Unavailable LEIGH COOK MD Unavailable Unavailable LEIGH COOK MD Unavailable Unavailable LEIGH COOK MD Unavailable Unavailable LEIGH COOK MD Unavailable Unavailable LEIGH COOK MD Unavailable Unavailable LEIGH COOK MD Unavailable Unavailable LEIGH COOK MD Unavailable Unavailable LEIGH COOK MD Unavailable Unavailable LEIGH COOK MD Unavailable Unavailable LEIGH COOK MD Unavailable Unavailable LEIGH COOK MD Unavailable Unavailable LEIGH COOK MD Unavailable Unavailable LEIGH COOK MD Unavailable Unavailable GALGANO, LEIGH MD Unavailable Unavailable GALGANLEIGH Austin MD Unavailable Unavailable GALGANLEIGH Austin MD Unavailable Unavailable GALGANLEIGH Austin MD Unavailable Unavailable CANAL, GAMALIEL Unavailable Unavailable Stevie, Leslie MD Unavailable Unavailable Stevie, Leslie MD Unavailable Unavailable Stevie, Leslie MD Unavailable Unavailable Stevie, Leslie MD Unavailable Unavailable Stevie, Leslie MD Unavailable Unavailable Stevie, Leslie MD Unavailable Unavailable Stevie, Leslie MD Unavailable Unavailable Stevie, Leslie MD Unavailable Unavailable Stevie, Leslie MD Unavailable Unavailable Stevie, Leslie MD Unavailable Unavailable Stevie, Leslie MD Unavailable Unavailable Stevie, Leslie MD Unavailable Unavailable Stevie, Leslie MD Unavailable Unavailable Stevie, Leslie MD Unavailable Unavailable Stevie, Leslie MD Unavailable Unavailable Stevie, Leslie MD Unavailable Unavailable Stevie, Leslie MD Unavailable Unavailable Stevie, Leslie MD Unavailable Unavailable Stevie, Leslie MD Unavailable Unavailable Stevie, Leslie MD Unavailable Unavailable Stevie, Leslie MD Unavailable Unavailable Stevie, Leslie MD Unavailable Unavailable Stevie, Leslie MD Unavailable Unavailable Stevie, Leslie MD Unavailable Unavailable Stevie, Leslie MD Unavailable Unavailable Stevie, Leslie MD Unavailable Unavailable Stevie, Leslie MD Unavailable Unavailable Stevie, Leslie MD Unavailable Unavailable Stevie, Leslie MD Unavailable Unavailable Stevie, Leslie MD Unavailable Unavailable Stevie, Leslie MD Unavailable Unavailable Stevie, Leslie MD Unavailable Unavailable Stevie, Leslie MD Unavailable Unavailable Stevie, Leslie MD Unavailable Unavailable Stevie, Leslie MD Unavailable Unavailable Stevie, Leslie MD Unavailable Unavailable Stevie, Leslie MD Unavailable Unavailable Stevie, Leslie MD Unavailable Unavailable Stevie, Leslie MD Unavailable Unavailable Stevie, Leslie MD Unavailable Unavailable Stevie, Leslie MD Unavailable Unavailable Stevie, Leslie MD Unavailable Unavailable Stevie, Leslie MD Unavailable Unavailable Stevie, Leslie MD Unavailable Unavailable Stevie, Leslie MD Unavailable Unavailable Stevie, Leslie MD Unavailable Unavailable Stevie, Leslie MD Unavailable Unavailable Stevie, Leslie MD Unavailable Unavailable Stevie, Leslie MD Unavailable Unavailable Stevie, Leslie MD Unavailable Unavailable Stevie, Leslie MD Unavailable Unavailable Stevie, Leslie MD Unavailable Unavailable Stevie, Leslie MD Unavailable Unavailable Stevie, Leslie MD Unavailable Unavailable Stevie, Leslie MD Unavailable Unavailable Stevie, Leslie MD Unavailable Unavailable Stevie, Leslie MD Unavailable Unavailable Stevie, Leslie MD Unavailable Unavailable Stevie, Leslie MD Unavailable Unavailable Stevie, Leslie MD Unavailable Unavailable Stevie, Leslie MD Unavailable Unavailable Stevie, Leslie MD Unavailable Unavailable Stevie, Leslie MD Unavailable Unavailable Stevie, Leslie MD Unavailable Unavailable Stevie, Leslie MD Unavailable Unavailable Stevie, Leslie MD Unavailable Unavailable Stevie, Leslie RAMON Unavailable Unavailable Stevie, Leslie RAMON Unavailable Unavailable Stevie, Leslie RAMON Unavailable Unavailable Stevie, Lelsie RAMON Unavailable Unavailable Stevie, Leslie RAMON Unavailable Unavailable Stevie, Leslie RAMON Unavailable Unavailable Stevie, Leslie RAMON Unavailable Unavailable Stevie, Leslie RAMON Unavailable Unavailable Stevie, Leslie RAMON Unavailable Unavailable Stevie, Lselie RAMON Unavailable Unavailable Stevie, Leslie RAMON Unavailable Unavailable Stevie, Leslie RAMON Unavailable Unavailable Stevie, Leslie RAMON Unavailable Unavailable Stevie, Leslie RAMON Unavailable Unavailable Ryfun, Netta Luisa HALL COORDINATOR-C Unavailable Unavaila ble Ryfun, Netta Luisa HALL COORDINATOR-C Unavailable Unavaila ble Ryfun, Netta Luisa HALL COORDINATOR-C Unavailable Unavaila ble Ryfun, Netta Luisa HALL COORDINATOR-C Unavailable Unavaila ble Ryfun, Netta Luisa HALL COORDINATOR-C Unavailable Unavaila ble Ryfun, Netta Luisa HALL COORDINATOR-C Unavailable Unavaila ble Ryfun, Netta Luisa HALL COORDINATOR-C Unavailable Unavaila ble Ryfun, Netta Luisa HALL COORDINATOR-C Unavailable Unavaila ble Ryfun, Netta Luisa HALL COORDINATOR-C Unavailable Unavaila ble Ryfun, Netta Luisa HALL COORDINATOR-C Unavailable Unavaila ble Ryfun, Netta Luisa HALL COORDINATOR-C Unavailable Unavaila ble Ryfun, Netta Luisa HALL COORDINATOR-C Unavailable Unavaila ble Ryfun, Netta Luisa HALL COORDINATOR-C Unavailable Unavaila ble Ryfun, Netta Luisa HALL COORDINATOR-C Unavailable Unavaila ble Ryfun, Netta Luisa HALL COORDINATOR-C Unavailable Unavaila ble Ryfun, Netta Luisa HALL COORDINATOR-C Unavailable Unavaila ble Ryfun, Netta Luisa HALL COORDINATOR-C Unavailable Unavaila ble Ryfun, Netta Luisa HALL COORDINATOR-C Unavailable Unavaila ble Ryfun, Netta Luisa HALL COORDINATOR-C Unavailable Unavaila ble Ryfun, Netta Luisa HALL COORDINATOR-C Unavailable Unavaila ble Ryfun, Netta Luisa HALL COORDINATOR-C Unavailable Unavaila ble Ryfun, Netta Luisa HALL COORDINATOR-C Unavailable Unavaila ble Ryfun, Netta Luisa HALL COORDINATOR-C Unavailable Unavaila ble Ryfun, Netta Luisa HALL COORDINATOR-C Unavailable Unavaila ble Ryfun, Netta Luisa HALL COORDINATOR-C Unavailable Unavaila ble Ryfun, Netta Luisa HALL COORDINATOR-C Unavailable Unavaila ble Ryfun, Netta Luisa HALL COORDINATOR-C Unavailable Unavaila ble Ryfun, Netta Luisa HALL COORDINATOR-C Unavailable Unavaila ble Ryfun, Netta Luisa HALL COORDINATOR-C Unavailable Unavaila ble Ryfun, Netta Luisa HALL COORDINATOR-C Unavailable Unavaila ble Kelly, Beverley Unavailable Unavailable Kelly, Beverley Unavailable Unavailable Kelly, Beverley Unavailable Unavailable Kelly, Beverley Unavailable Unavailable Kelly, Beverley Unavailable Unavailable Kelly, Beverley Unavailable Unavailable Kelly, Beverley Unavailable Unavailable Kelly, Beverley Unavailable Unavailable Kelly, Beverley Unavailable Unavailable Kelly, Beverley Unavailable Unavailable Kelly, Beverley Unavailable Unavailable Kelly, Beverley Unavailable Unavailable Kelly, Beverley Unavailable Unavailable Kelly, Beverley Unavailable Unavailable Kelly, Beverley Unavailable Unavailable Kelly, Beverley Unavailable Unavailable Kelly, Beverley Unavailable Unavailable KAYANI, DANAY Unavailable Unavailable Stevie, Leslie MD Unavailable Unavailable Stevie, Leslie MD Unavailable Unavailable Stevie, Leslie MD Unavailable Unavailable Stevie, Leslie MD Unavailable Unavailable Stevie, Leslie MD Unavailable Unavailable Stevie, Leslie MD Unavailable Unavailable Stevie, Leslie MD Unavailable Unavailable Stevie, Leslie MD Unavailable Unavailable Stevie, Leslie MD Unavailable Unavailable Stevie, Leslie MD Unavailable Unavailable Stevie, Leslie MD Unavailable Unavailable Stevie, Leslie MD Unavailable Unavailable Stevie, Leslie MD Unavailable Unavailable Stevie, Leslie MD Unavailable Unavailable Stevie, Leslie MD Unavailable Unavailable Stevie, Leslie MD Unavailable Unavailable Stevie, Leslie MD Unavailable Unavailable Stevie, Leslie MD Unavailable Unavailable Stevie, Leslie MD Unavailable Unavailable Stevie, Leslie MD Unavailable Unavailable Stevie, Leslie MD Unavailable Unavailable Stevie, Leslie MD Unavailable Unavailable Stevie, Leslie MD Unavailable Unavailable Stevie, Leslie MD Unavailable Unavailable Stevie, Leslie MD Unavailable Unavailable Stevie, Leslie MD Unavailable Unavailable Stevie, Leslie MD Unavailable Unavailable Stevie, Leslie MD Unavailable Unavailable Stevie, Leslie MD Unavailable Unavailable Stevie, Leslie MD Unavailable Unavailable Stevie, Leslie MD Unavailable Unavailable Stevie, Leslie MD Unavailable Unavailable Stevie, Leslie MD Unavailable Unavailable Stevie, Leslie MD Unavailable Unavailable Stevie, Leslie MD Unavailable Unavailable Stevie, Leslie MD Unavailable Unavailable Stevie, Leslie MD Unavailable Unavailable Stevie, Leslie MD Unavailable Unavailable Stevie, Leslie MD Unavailable Unavailable Stevie, Leslie MD Unavailable Unavailable Stevie, Leslie MD Unavailable Unavailable Stevie, Leslie MD Unavailable Unavailable Stevie, Leslie MD Unavailable Unavailable Stevie, Leslie MD Unavailable Unavailable Stevie, Lselie MD Unavailable Unavailable Stevie, Leslie MD Unavailable Unavailable Stevie, Leslie MD Unavailable Unavailable Stevie, Lselie MD Unavailable Unavailable Stevie, Leslie MD Unavailable Unavailable Stevie, Leslie MD Unavailable Unavailable Stevie, Leslie MD Unavailable Unavailable Stevie, Leslie MD Unavailable Unavailable Stevie, Leslie MD Unavailable Unavailable Stevie, Leslie MD Unavailable Unavailable Stevie, Leslie MD Unavailable Unavailable Stevie, Leslie MD Unavailable Unavailable Stevie, Leslie MD Unavailable Unavailable Stevie, Leslie MD Unavailable Unavailable Stevie, Leslie MD Unavailable Unavailable Stevie, Leslie MD Unavailable Unavailable Stevie, Leslie MD Unavailable Unavailable Stevie, Leslie MD Unavailable Unavailable Stevie, Leslie MD Unavailable Unavailable Stevie, Leslie MD Unavailable Unavailable Stevie, Leslie MD Unavailable Unavailable Stevie, Lesile MD Unavailable Unavailable Stevie, Leslie MD Unavailable Unavailable Stevie, Leslie MD Unavailable Unavailable Stevie, Leslie MD Unavailable Unavailable Stevie, Leslie MD Unavailable Unavailable Stevie, Leslie MD Unavailable Unavailable Stevie, Leslie MD Unavailable Unavailable Stevie, Leslie MD Unavailable Unavailable Stevie, Leslie MD Unavailable Unavailable Stevie, Leslie MD Unavailable Unavailable Stevie, Leslie MD Unavailable Unavailable Stevie, Leslie MD Unavailable Unavailable Stevie, Leslie MD Unavailable Unavailable Stevie, Leslie MD Unavailable Unavailable Stevie, Leslie MD Unavailable Unavailable MONTOLVOOTANO, E HARESH Unavailable Unavailable Julio C Lee MD Unavailable Unavailable Julio C Lee MD Unavailable Unavailable Julio C Lee MD Unavailable Unavailable Julio C Lee MD Unavailable Unavailable Julio C Lee MD Unavailable Unavailable Julio C Lee MD Unavailable Unavailable Julio C Lee MD Unavailable Unavailable Julio C Lee MD Unavailable Unavailable Julio C Lee MD Unavailable Unavailable Julio C Lee MD Unavailable Unavailable Julio C Lee MD Unavailable Unavailable Julio C Lee MD Unavailable Unavailable Julio C Lee MD Unavailable Unavailable Julio C Lee MD Unavailable Unavailable Julio C Lee MD Unavailable Unavailable Julio C Lee MD Unavailable Unavailable Julio C Lee MD Unavailable Unavailable Julio C Lee MD Unavailable Unavailable Julio C Lee MD Unavailable Unavailable Julio C Lee MD Unavailable Unavailable Julio C Lee MD Unavailable Unavailable Julio C Lee MD Unavailable Unavailable Julio C Lee MD Unavailable Unavailable Fish, B Ana Paula MD Unavailable Unavailable Fish, B Ana Paula MD Unavailable Unavailable Fish, B Ana Paula MD Unavailable Unavailable Fish, B Ana Paula MD Unavailable Unavailable Fish, B Ana Paula MD Unavailable Unavailable Fish, B Ana Paula MD Unavailable Unavailable Fish, B Ana Paula MD Unavailable Unavailable Fish, B Ana Paula MD Unavailable Unavailable Fish, B Ana Paula MD Unavailable Unavailable Fish, B Ana Paula MD Unavailable Unavailable Fish, B Ana Paula MD Unavailable Unavailable Fish, B Ana Paula MD Unavailable Unavailable Fish, B Ana Paula MD Unavailable Unavailable Fish, B Ana Paula MD Unavailable Unavailable Fish, B Ana Paula MD Unavailable Unavailable Fish, B Ana Paula MD Unavailable Unavailable Fish, B Ana Paula MD Unavailable Unavailable Fish, B Ana Paula MD Unavailable Unavailable Fish, B Ana Paula MD Unavailable Unavailable Fish, B Ana Paula MD Unavailable Unavailable Fish, B Ana Paula MD Unavailable Unavailable Fish, B Ana Paula MD Unavailable Unavailable Fish, B Ana Paula MD Unavailable Unavailable Fish, B Ana Paula MD Unavailable Unavailable Fish, B Ana Paula MD Unavailable Unavailable Fish, B Ana Paula MD Unavailable Unavailable Fish, B Ana Paula MD Unavailable Unavailable Fish, B Ana Paula MD Unavailable Unavailable Fish, B Ana Paula MD Unavailable Unavailable Fish, B Ana Paula MD Unavailable Unavailable Fish, B Ana Paula MD Unavailable Unavailable Fish, B Ana Paula MD Unavailable Unavailable Fish, B Ana Paula MD Unavailable Unavailable Fish, B Ana Paula MD Unavailable Unavailable Fish, B Ana Paula MD Unavailable Unavailable Fish, B Ana Paula MD Unavailable Unavailable Fish, B Ana Paula MD Unavailable Unavailable Fish, B Ana Paula MD Unavailable Unavailable Fish, B Ana Paula MD Unavailable Unavailable Fish, B Ana Paula MD Unavailable Unavailable Fish, B Ana Paula MD Unavailable Unavailable Re-disclosure Warning The records that you are about to access may contain information from federally-assisted alcohol or drug abuse programs. If such information is present, then the following federally mandated warning applies: This information has been disclosed to you from records protected by federal confidentiality rules (42 CFR part 2). The federal rules prohibit you from making any further disclosure of this information unless further disclosure is expressly permitted by the written consent of the person to whom it pertains or as otherwise permitted by 42 CFR part 2. A general authorization for the release of medical or other information is NOT sufficient for this purpose. The Federal rules restrict any use of the information to criminally investigate or prosecute any alcohol or drug abuse patient.The records that you are about to access may contain highly sensitive health information, the redisclosure of which is protected by Article 27-F of the [facility] Public Health law. If you continue you may have access to information: Regarding HIV / AIDS; Provided by facilities licensed or operated by the [facility] Office of Mental Health; or Provided by the [facility] Office for People With Developmental Disabilities. If such information is present, then the following [facility] mandated warning applies: This information has been disclosed to you from confidential records which are protected by state law. State law prohibits you from making any further disclosure of this information without the specific written consent of the person to whom it pertains, or as otherwise permitted by law. Any unauthorized further disclosure in violation of state law may result in a fine or correction sentence or both. A general authorization for the release of medical or other information is NOT sufficient authorization for further disc losure. Allergies and Adverse Reactions Type Description Substance Reaction Status Data Source(s ) Drug allergy Oxycodone HCl Oxycodone Angioedema Active eCW1 ([facility]) Drug allergy Morphine Sulfate Morphine Nausea/Vomiting, Hives Acti ve eCW1 ([facility]) Propensity to adverse reactions SULFA ANTIBIOTICS Sulfa Antibiot ics Shortness Of Breath High Facial Swelling High Hives High Active [facility] High High High Propensity to adverse reactions PENICILLINS Penicillins Anaphylax is High Active [facility] High Propensity to adverse reactions OXYCODONE Oxycodone Acti ve [facility] Propensity to adverse reactions MORPHINE AND RELATED Morphine An d Related Shortness Of Breath High Nausea And Vomiting High Active [facility] High High CLASS PENICILLINS (CLASS) PENICILLINS (CLASS) RASH [facility] CLASS SULFA (sulfonamide) SULFA (sulfonamide) RASH [facility] Family History Family Member Name Family Member Gender Family Member Status Date o f Status Description Data Source(s) Unknown Unknown Problem MEDENT ([facility]) Unknown Male Problem MEDENT ([facility]) Encounters Encounter Providers Location Date Indications Data Source(s ) Unknown [address] [facility] [address] 10/22/2020 12:00:00 AM EST eCW1 ([facility]) [place] [address] [facility] [address] 10/21/2020 12:00:00 AM EST eCW1 ([facility]) Unknown [address] [facility] [address] 09/30/2020 12:00:00 AM EST eCW1 ([facility]) Outpatient [address] [facility] [address] 09/26/2020 12:00:00 AM EST eCW1 ([facility]) Unknown [address] [facility] [address] 09/16/2020 12:00:00 AM EST eCW1 ([facility]) Outpatient [address] [facility] [address] 09/12/2020 12:00:00 AM EST eCW1 ([facility]) Unknown [address] [facility] [address] 09/12/2020 12:00:00 AM EST eCW1 ([facility]) Unknown [address] [facility] [address] 09/05/2020 12:00:00 AM EDT eCW1 ([facility]) Unknown [address] [facility] [address] 08/29/2020 12:00:00 AM EDT eCW1 ([facility]) Unknown [address] [facility] [address] 08/29/2020 12:00:00 AM EDT eCW1 ([facility]) Unknown [address] [facility] [address] 08/27/2020 12:00:00 AM EDT eCW1 ([facility]) Unknown [address] [facility] [address] 08/27/2020 12:00:00 AM EDT eCW1 ([facility]) Unknown [address] [facility] [address] 08/21/2020 12:00:00 AM EDT eCW1 ([facility]) Unknown [address] [facility] [address] 08/20/2020 12:00:00 AM EDT eCW1 ([facility]) Outpatient Attender: Ana Paula Lee MD Physical Therapy 08/15 11:00:00 AM EDT MEDMILLIE ([facility]) Outpatient Attender: DANAY Wilson: Leslie Hubbard MD [id number] 07/09/2020 12:00:00 AM EDT [facility] Outpatient Referrer: Leslie Hubbard MDConsultant: Elias Us Jr 06/28/2020 08:52:19 AM EDT [facility] Outpatient [address] [place] [phone] 05/24/2020 12:00:00 AM EDT eCW1 ([facility]) Outpatient Attender: Elias Us Jr [id number] 05/23/2020 09:05:27 AM EDT [facility] Outpatient [address] [facility], [facility] [address] 04/26/2020 12:00:00 AM EDT eCW1 ([facility]) Unknown [address] [place] [phone] 04/26/2020 12:00:00 AM EDT eCW1 ([facility]) [facility] GME Resident [address] [place] [phone] 04/17/2020 12:00:00 AM EDT eCW1 ([facility]) Outpatient Attender: GAMALIEL CANAL PAAttender: GAMALIEL CANAL [id number] 04/12/2020 12:00:00 AM EDT [facility] [address] [place] [phone] 03/27/2020 12:00:00 AM EDT eCW1 ([facility]) Outpatient Referrer: Leslie Hubbard MD [id number] 2019 01:25:17 PM EDT - 03/25/2020 01:25:24 PM EDT [facility] Outpatient Attender: Leslie Hubbard MDReferrer: Leslie Hubbard MD [id number] 03/25/2020 07:58:10 AM EDT - 03/25/2020 09:03:26 AM EDT [facility] GME Resident [address] [place] [phone] 03/25/2020 12:00:00 AM EDT eCW1 ([facility]) [facility] GME Resident [address] [place], [place] [phone] 03/21/2020 12:00:00 AM EDT eCW1 ([facility]) [address] [address] 03/21/2020 12:00:00 AM EDT eCW1 ([facility]) [facility] [address] [place] [phone] 03/08/2020 12:00:00 AM EDT eCW1 ([facility]) [facility] [address] [place] [phone] 03/08/2020 12:00:00 AM EDT eCW1 ([facility]) [facility] [address] [place] [phone] 02/23/2020 12:00:00 AM EDT eCW1 ([facility]) [address] [address] 02/06/2020 12:00:00 AM EDT eCW1 ([facility]) [address] [address] 02/05/2020 12:00:00 AM EDT eCW1 ([facility]) Inpatient Attender: DANAY Atkins naomi: Leslie Hubbard MDAdmitter: Leslie Hubbard MD [id number] 02/02/2020 03:58:32 PM EDT - 03/29/2020 11:14:00 AM EDT [facility] Patient discharged. Outpatient Attender: LEIGH COOK MD 02/01/2020 12:00:0 0 AM [facility] [address] [place] [phone] 01/29/2020 12:00:00 AM EDT eCW1 ([facility]) Outpatient Attender: LEIGH COOK MD 01/25/2020 12:00:0 0 AM EDT [facility] Outpatient Attender: Luisa Garrison HALL COORDINATOR -CAttender: Leslie Hubbard MDAttender: DANAY Antonioferrer: HARESH CANTRELL [id number] 01/17/2020 1 2:00:00 AM EDT - 01/17/2020 11:47:12 AM EDT [facility] [address] [place] [address] 01/12/2020 12:00:00 AM EST eCW1 ([facility]) [facility] [address] [place] [address] 01/12/2020 12:00:00 AM EST eCW1 ([facility]) [facility] [address] [place] [address] 01/02/2020 12:00:00 AM EST eCW1 ([facility]) Outpatient 12/26/2019 03:30:00 PM EST [facility] [address] [place] [phone] 12/19/2019 12:00:00 AM EST eCW1 ([facility]) [facility] [address] [place] [address] 12/08/2019 12:00:00 AM EST eCW1 ([facility]) [facility] GME Resident [address] [place], [place] [phone] 12/08/2019 12:00:00 AM EST eCW1 ([facility]) [facility] [address] [place] [phone] 12/07/2019 12:00:00 AM EST eCW1 ([facility]) [facility] [address] [place] [phone] 12/07/2019 12:00:00 AM EST eCW1 ([facility]) [facility] [address] [place] [phone] 12/05/2019 12:00:00 AM EST eCW1 ([facility]) Outpatient Attender: Raymond Sheffield PAConsultant: Noel huggins MD 12/04/2019 10:40:00 AM EST - 12/04/2019 10:40:00 AM EST [facility] [address] [place] [phone] 12/04/2019 12:00:00 AM EST eCW1 ([facility]) [facility] [address] [place] [phone] 11/28/2019 12:00:00 AM EST eCW1 ([facility]) [facility] [address] [place] [phone] 11/27/2019 12:00:00 AM EST eCW1 ([facility]) [facility] GME Resident [address] [place] [phone] 11/27/2019 12:00:00 AM EST eCW1 ([facility]) [facility] [address] [place] [phone] 11/24/2019 12:00:00 AM EST eCW1 ([facility]) [facility] [address] [place] [phone] 11/24/2019 12:00:00 AM EST eCW1 ([facility]) [facility] D[facility] [address] [place] [phone] 11/24/2019 12:00:00 AM EST eCW1 ([facility]) [facility] [address] [place] [phone] 11/23/2019 12:00:00 AM EST eCW1 ([facility]) [facility] [address] [place] [phone] 11/21/2019 12:00:00 AM EST eCW1 ([facility]) [facility] [address] [place] [phone] 11/20/2019 12:00:00 AM EST eCW1 ([facility]) [facility] [place] [address] [place] [phone] 11/17/2019 12:00:00 AM EST eCW1 ([facility]) [facility] [address] [place] [phone] 11/17/2019 12:00:00 AM EST eCW1 ([facility]) [facility] GME Resident [address] [place] [phone] 11/15/2019 12:00:00 AM EST eCW1 ([facility]) [facility] [place] [address] [place] [phone] 11/15/2019 12:00:00 AM EST eCW1 ([facility]) [facility] [address] [place] [phone] 10/24/2019 12:00:00 AM EST eCW1 ([facility]) [facility] [address] [place] [phone] 10/23/2019 12:00:00 AM EST eCW1 ([facility]) [facility] [address] [place] [phone] 10/20/2019 12:00:00 AM EST eCW1 ([facility]) [facility] [address] [place] [phone] 10/18/2019 12:00:00 AM EST eCW1 ([facility]) [facility] [address] [place] [phone] 10/17/2019 12:00:00 AM EST eCW1 ([facility]) [facility] [address] [place] [phone] 10/10/2019 12:00:00 AM EST eCW1 ([facility]) [facility] [address] [place] [phone] 10/02/2019 12:00:00 AM EST eCW1 ([facility]) [facility] [address] [place] [phone] 09/29/2019 12:00:00 AM EST eCW1 ([facility]) [facility] [address] [place] [phone] 09/27/2019 12:00:00 AM EST eCW1 ([facility]) [facility] [address] [place] [phone] 09/27/2019 12:00:00 AM EST eCW1 ([facility]) [facility] [address] [place] [phone] 09/26/2019 12:00:00 AM EST eCW1 ([facility]) Outpatient Attender: Beverley KellyConsultant: Noel Cabrera MD 07/13/2019 09:13:45 AM EDT [facility] Medications Medication Brand Name Start Date Product Form Dose Route Admi nistrative Instructions Pharmacy Instructions Status Indications Reaction Description Data Source(s) 17.5-3.13-1.6 gram 11/12/2020 12:00:00 AM EST recon soln 354 DIRECTED PER DOCTORS BOWEL INSTRUCTIONS DIRECTED PER DOCTORS BOWEL INSTRUCTIONS SOLD: 11/15/2020 [facility] Acetaminophen 325 MG / Hydrocodone Edward trate 10 MG Oral Tablet [[place]] Cleveland 10-325 MG Cleveland 10-325 MG 10/22/2020 12:00:00 AM EST 1.0 {tablet_as_ needed} active [place] 10-325 MG eCW1 ([facility]) Acetaminophen 325 MG / Hydrocodone Edward trate 10 MG Oral Tablet [[place]] Cleveland 10-325 MG Cleveland 10-325 MG 10/22/2020 12:00:00 AM EST 1.0 {tablet_as_ needed} active [place] 10-325 MG eCW1 ([facility]) 10-325 mg 10/22/2020 12:00:00 AM EST tablet 90 TAKE ONE TABLET BY MOUTH EVERY 8 HOURS NEEDED MAXIMUM DAILY DOSE = THREE TABLETS TAKE ONE TABLET BY MOUTH EVERY 8 HOURS NEEDED MAXIMUM DAILY DOSE = THREE TABLETS SOLD: 10/24/2020 [facility] 150 mg 10/01/2020 12:00:00 AM EST tablet 1 TAKE 1 TABLET BY MOUTH ONCE FOR YEAST INFECTION TAKE 1 TABLET BY MOUTH ONCE FOR YEAST INFECTION SOLD: 10/02/2020 [facility] 100 mg 10/01/2020 12:00:00 AM EST capsule 10 TAKE ONE CAPSULE BY MOUTH TWICE A DAY TAKE ONE CAPSULE BY MOUTH TWICE A DAY SOLD: 10/01/2020 [facility] Acetaminophen 325 MG / Hydrocodone Edward trate 10 MG Oral Tablet [[place]] [place] 10-325 MG Cleveland 10-325 MG 09/06/2020 12:00:00 AM EDT 1.0 {tablet_as_ needed} active [place] 10-325 MG eCW1 ([facility]) Acetaminophen 325 MG / Hydrocodone Edward trate 10 MG Oral Tablet [[place]] [place] 10-325 MG [place] 10-325 MG 09/06/2020 12:00:00 AM EDT 1.0 {tablet_as_ needed} active [place] 10-325 MG eCW1 ([facility]) 10-325 mg 09/06/2020 12:00:00 AM EDT tablet 90 TAKE ONE TABLET BY MOUTH EVERY 8 HOURS NEEDED MAXIMUM DAILY DOSE = 3 TABLETS TAKE ONE TABLET BY MOUTH EVERY 8 HOURS NEEDED MAXIMUM DAILY DOSE = 3 TABLETS SOLD: 09/09/2020 [facility] Acetaminophen 325 MG / Hydrocodone Edward trate 10 MG Oral Tablet [[place]] [place] 10-325 MG [place] 10-325 MG 09/06/2020 12:00:00 AM EDT 1.0 {tablet_as_ needed} active [place] 10-325 MG eCW1 ([facility]) Acetaminophen 325 MG / Hydrocodone Edward trate 10 MG Oral Tablet [[place]] [place] 10-325 MG Cleveland 10-325 MG 09/06/2020 12:00:00 AM EDT 1.0 {tablet_as_ needed} active [place] 10-325 MG eCW1 ([facility]) Acetaminophen 325 MG / Hydrocodone Edward trate 10 MG Oral Tablet [[place]] [place] 10-325 MG [place] 10-325 MG 09/06/2020 12:00:00 AM EDT 1.0 {tablet_as_ needed} active [place] 10-325 MG eCW1 ([facility]) Acetaminophen 325 MG / Hydrocodone Edward trate 10 MG Oral Tablet [[place]] [place] 10-325 MG [place] 10-325 MG 09/06/2020 12:00:00 AM EDT 1.0 {tablet_as_ needed} active [place] 10-325 MG eCW1 ([facility]) 150 mg 08/27/2020 12:00:00 AM EDT tablet 2 TAKE ONE TABLET BY MOUTH EVERY DAY FOR 1 DAY TAKE ONE TABLET BY MOUTH EVERY DAY FOR 1 DAY SOLD: 08/31/2020 [facility] 150 mg 08/27/2020 12:00:00 AM EDT tablet 2 TAKE ONE TABLET BY MOUTH EVERY DAY FOR 1 DAY TAKE ONE TABLET BY MOUTH EVERY DAY FOR 1 DAY SOLD: 08/27/2020 [facility] 500 mg 08/20/2020 12:00:00 AM EDT tablet 14 TAKE ONE TABLET BY MOUTH TWICE A DAY UNTIL GONE TAKE ONE TABLET BY MOUTH TWICE A DAY UNTIL GONE SOLD: 08/21/2020 [facility] Metronidazole 500 MG Oral Tablet METRONIDAZOLE 08/20/2020 12:0 0:00 AM EDT tablet 30 TAKE ONE TABLET BY M OUTH EVERY 8 HOURS WITH FOOD UNTIL GONE DO NOT DRINK ALCOHOL TAKE ONE TABLET BY MOUTH EVERY 8 HOURS W ITH FOOD UNTIL GONE DO NOT DRINK ALCOHOL SOLD: 08/21/2020 [facility] 10-325 mg 08/06/2020 12:00:00 AM EDT tablet 90 TAKE ONE TABLET BY MOUTH EVERY 8 HOURS NEEDED FOR PAIN MAXIMUM DAILY DOSE = 3 TABLETS TAKE ONE TABLET BY MOUTH EVERY 8 HOURS NEEDED FOR PAIN MAXIMUM DAILY DOSE = 3 TABLETS SOLD: 08/09/2020 [facility] 5 mg 06/28/2020 12:00:00 AM EDT tablet 90 TAKE ONE TABLET BY MOUTH THREE TIMES A DAY DIRECTED TAKE ONE TABLET BY MOUTH THREE TIMES A DAY DIRECTED SOLD: 08/03/2020 [facility] 5 mg 06/28/2020 12:00:00 AM EDT tablet 90 TAKE ONE TABLET BY MOUTH THREE TIMES A DAY DIRECTED TAKE ONE TABLET BY MOUTH THREE TIMES A DAY DIRECTED SOLD: 06/28/2020 [facility] 300 mg 06/27/2020 12:00:00 AM EDT capsule 60 TAKE ONE CAPSULE BY MOUTH TWICE A DAY DIRECTED TAKE ONE CAPSULE BY MOUTH TWICE A DAY DIRECTED SOLD : 08/31/2020 [facility] 100 mg 06/27/2020 12:00:00 AM EDT capsule 30 TAKE ONE CAPSULE BY MOUTH EVERY DAY AT BEDTIME DIRECTED TAKE ONE CAPSULE BY MOUTH EVERY DAY AT B EDTIME DIRECTED SOLD: 06/28/2020 [facility] 100 mg 06/27/2020 12:00:00 AM EDT capsule 30 TAKE ONE CAPSULE BY MOUTH EVERY DAY AT BEDTIME DIRECTED TAKE ONE CAPSULE BY MOUTH EVERY DAY AT B EDTIME DIRECTED SOLD: 08/31/2020 [facility] 300 mg 06/27/2020 12:00:00 AM EDT capsule 60 TAKE ONE CAPSULE BY MOUTH TWICE A DAY DIRECTED TAKE ONE CAPSULE BY MOUTH TWICE A DAY DIRECTED SOLD : 06/28/2020 [facility] 100 mg 06/27/2020 12:00:00 AM EDT capsule 30 TAKE ONE CAPSULE BY MOUTH EVERY DAY AT BEDTIME DIRECTED TAKE ONE CAPSULE BY MOUTH EVERY DAY AT B EDTIME DIRECTED SOLD: 08/03/2020 [facility] 300 mg 06/27/2020 12:00:00 AM EDT capsule 60 TAKE ONE CAPSULE BY MOUTH TWICE A DAY DIRECTED TAKE ONE CAPSULE BY MOUTH TWICE A DAY DIRECTED SOLD : 08/03/2020 [facility] 10-325 mg 06/26/2020 12:00:00 AM EDT tablet 90 TAKE ONE TABLET BY MOUTH EVERY 8 HOURS NEEDED FOR PAIN MAXIMUM DAILY DOSE = THREE TABLETS TAKE ONE TABLET BY MOUTH EVERY 8 HOURS NEEDED FOR PAIN MAXIMUM DAILY DOSE = THREE TABLETS SOLD: 06/27/2020 [facility] Acetaminophen 325 MG / Hydrocodone Edward trate 10 MG Oral Tablet [[place]] [place] 10-325 MG [place] 10-325 MG 05/17/2020 12:00:00 AM EDT 1.0 {tablet_as_ needed} active [place] 10-325 MG eCW1 ([facility]) Acetaminophen 325 MG / Hydrocodone Edward trate 10 MG Oral Tablet [[place]] [place] 10-325 MG [place] 10-325 MG 05/17/2020 12:00:00 AM EDT 1.0 {tablet_as_ needed} active [place] 10-325 MG eCW1 ([facility]) Acetaminophen 325 MG / Hydrocodone Edward trate 10 MG Oral Tablet [[place]] [place] 10-325 MG [place] 10-325 MG 05/17/2020 12:00:00 AM EDT 1.0 {tablet_as_ needed} active [place] 10-325 MG eCW1 ([facility]) Acetaminophen 325 MG / Hydrocodone Edward trate 10 MG Oral Tablet [[place]] [place] 10-325 MG [place] 10-325 MG 05/17/2020 12:00:00 AM EDT 1.0 {tablet_as_ needed} active [place] 10-325 MG eCW1 ([facility]) Acetaminophen 325 MG / Hydrocodone Edward trate 10 MG Oral Tablet [[place]] [place] 10-325 MG [place] 10-325 MG 05/17/2020 12:00:00 AM EDT 1.0 {tablet_as_ needed} active [place] 10-325 MG eCW1 ([facility]) 10-325 mg 05/17/2020 12:00:00 AM EDT tablet 90 TAKE ONE TABLET BY MOUTH EVERY 8 HOURS NEEDED MAXIMUM DAILY DOSE = THREE TABLETS TAKE ONE TABLET BY MOUTH EVERY 8 HOURS NEEDED MAXIMUM DAILY DOSE = THREE TABLETS SOLD: 05/17/2020 [facility] Acetaminophen 325 MG / Hydrocodone Edward trate 10 MG Oral Tablet [[place]] [place] 10-325 MG [place] 10-325 MG 05/17/2020 12:00:00 AM EDT 1.0 {tablet_as_ needed} active [place] 10-325 MG eCW1 ([facility]) Acetaminophen 325 MG / Hydrocodone Edward trate 10 MG Oral Tablet [[place]] [place] 10-325 MG [place] 10-325 MG 05/17/2020 12:00:00 AM EDT 1.0 {tablet_as_ needed} active [place] 10-325 MG eCW1 ([facility]) 500 mg 04/13/2020 12:00:00 AM EDT tablet 30 TAKE ONE TABLET BY MOUTH THREE TIMES A DAY NEEDED ( MUSCLE SPASMS) TAKE ONE TABLET BY MOUTH THREE TIMES A DAY NEEDED ( MUSCLE SPASMS) SOLD: 04/14/2020 [facility] 10-325 mg 04/10/2020 12:00:00 AM EDT tablet 60 TAKE ONE TABLET BY MOUTH EVERY 4 HOURS NEEDED FOR POSTOPERATIVE PAIN MAXIMUM DAILY DOSE = 6 TABLETS TAKE ONE TABLET BY MOUTH EVERY 4 HOURS NEEDED FOR POSTOPERATIVE PAIN MAXIMUM DAILY DOSE = 6 TABLETS SOLD: 04/10/2020 [facility] POLYETHYLENE GLYCOL 3350 142 MG/ML Oral Solution polyethylene glycol (GLYCOLAX) packet 17 g polyethylene glycol (GLYCOLAX) packet 17 g 03/29/2020 09:00:00 AM EDT 17 g Oral active 17 g, Or al, Daily, First dose on Wed03/29/20 at 0900, Post-op
Start POD #1
[facility] Medication administered onsite Bisacodyl 10 MG Rectal Suppository bisacodyl (DULCOLAX ) suppository 10 mg bisacodyl (DULCOLAX) suppository 10 mg 03/29/2020 12:00:00 AM EDT 10 mg Rectal active 10 mg, Rectal, Daily PRN, constipation, for constipation unrelieved by miralax/MOM, Starting Wed03/29/20 at 0000, For 4 days, Post- op
For post-op day #1, #3, and #4Hold for BM
[facility] Medication administered onsite Magnesium Hydroxide 80 MG/ML Oral Suspen kassandra magnesium hydroxide (MILK OF MAGNESIA) 400 MG/5ML suspension 30 mL magnesium hydroxide (MILK OF MAGNESIA) 4 00 MG/5ML suspension 30 mL 03/29/2020 12:00:00 AM EDT 30 mL Oral active 30 mL, Oral, Daily PRN, constipation, Starting Wed03/29/20 at 0000, Post- op
Start Post-op day #1. Hold for BM
[facility] Medication administered onsite Acetaminophen 325 MG / Hydrocodone Edward trate 10 MG Oral Tablet HYDROcodone- acetaminophen (NORCO 10-325) 10-325 MG per tablet HYDROcodone-acetaminophen (NORCO 10-325) 10-325 MG per tablet 03/29/2020 12:00:00 AM EDT 1 {tbl } Oral active Take 1 tablet by mouth every 4 (four) hours as needed (postoperative pain) Max Daily Amount: 6 tablets [facility] Docusate Sodium 50 MG / sennosides, PENITENTIARY 8.6 MG Oral Tablet senna-docusate (PERICOLACE) 8.6-50 MG 2 tablet senna-docusate (PERICOLACE) 8.6-50 MG 2 tablet 03/28/2020 09:00:00 PM EDT 2 {tbl} Oral active 2 tablet, Oral, Nightly, First dose on Aysha 03/28/20 at 2100, Post-op
hold for loose stools
[facility] Medication administered onsite vancomycin (VANCOCIN) IVPB 1,000 mg [id number] 03/28/2020 07:00:0 0 PM EDT 1000 mg Intravenous completed 1,000 mg , Intravenous, Administer over 1 Hours, Every 12 hours (relative), First dose on Aysha 03/28/20 at 1900, For 2 doses, Post-op
Start first dose 10 hours after pre-op dose.
[facility] Medication administered onsite Acetaminophen 500 MG Oral Tablet acetaminophen (TYLENO L) tablet 500 mg acetaminophen (TYLENOL) tablet 500 mg 03/28/2020 06:00:00 PM EDT 50 0 mg Oral active 500 mg, Oral, E very 6 hours (scheduled), First dose on Aysha 03/28/20 at 1800, Post-op [facility] Medication administered onsite 2 ML Metoclopramide 5 MG/ML Prefilled Sy ringe metoclopramide (REGLAN) injection 10 mg metoclopramide (REGLAN) injection 10 mg 03/28/2020 03:00:00 PM E DT 10 mg Intravenous active 10 mg, I ntravenous, Every 6 hours (relative), First dose on Aysha 03/28/20 at 1500, For 24 hours, Post-op
Renal dosing per pharmacy
[facility] Medication administered onsite Calcium Chloride 0.0014 MEQ/ML / Potassi um Chloride 0.004 MEQ/ML / Sodium Chloride 0.103 MEQ/ML / Sodium Lactate 0.028 MEQ/ML Injectable Solution lactated ringers infusion lactated ringers infusion 03/28/2020 03:00:00 PM EDT Intravenous aborted at 125 mL/hr, Intravenous, Continuous, Starting Aysha 03/28/20 at 1500, Post-op
heplock with good pos
[facility] Medication administered onsite DAILY NOY (THERAGRAN) 1 tablet [id number] 03/28/2020 03:00:00 PM EDT 1 {tbl} Oral active 1 tablet, Oral, Daily, First dose on Aysha 03/28/20 at 1500 [facility] Medication administered onsite ondansetron (ZOFRAN) injection 4 mg [id number] 03/28/2020 02:02:2 3 PM EDT 4 mg Intravenous active 4 mg, In travenous, Every 4 hours PRN, nausea, vomiting, Starting Aysha 03/28/20 at 1402, Post-op
If unable to take PO
[facility] Medication administered onsite Acetaminophen 325 MG / Hydrocodone Edward trate 5 MG Oral Tablet HYDROcodone- acetaminophen (NORCO) 5-325 MG per tablet 1 tablet HYDROcodone-acetaminophen (NORCO) 5-325 MG per tablet 1 tablet 03/28/2020 02:02:23 PM EDT 1 { tbl} Oral active 1 tablet, Oral, Every 4 hours PRN, moderate pain (4-6), Starting Aysha 03/28/20 at 1402, For 7 days, Post-op [facility] Medication administered onsite Acetaminophen 325 MG / Hydrocodone Edward trate 10 MG Oral Tablet HYDROcodone- acetaminophen (NORCO 10-325) 10-325 MG per tablet 1 tablet HYDROcodone- acetaminophen (NORCO 10-325) 10-325 MG per tablet 1 tablet 03/28/2020 02:02:23 PM EDT 1 {tbl} Oral active 1 tablet , Oral, Every 4 hours PRN, severe pain (7-10), Starting Aysha 03/28/20 at 1402, For 7 days, Post-op [facility] Medication administered onsite Mineral Oil 1000 MG/ML Enema mineral oil enema 1 enema mineral oil enema 1 enema 03/28/2020 02:02:23 PM EDT 1 {enema} Rectal active 1 enema, Rectal, Daily PRN, constipation, if unrelieved by dulcolax, Starting Aysha 03/28/20 at 1402, Post-op
hold for loose stools
[facility] Medication administered onsite HYDROmorphone (DILAUDID) injection 0.5 mg [id number] 03/28/2020 12:09:06 PM EDT 0.5 mg Intravenous aborted 0.5 mg, Intravenous, Every 5 min PRN, severe pain (7-10), Starting Aysha 03/28/20 at 1209, For 5 doses, PACU (only) [facility] Medication administered onsite chlorhexidine gluconate 1.2 MG/ML Mouthw taylor chlorhexidine (PERIDEX) 0.12 % oral solution 15 mL chlorhexidine (PERIDEX) 0.12 % oral solution 15 mL 09:00:00 AM EDT 15 mL Mouth/Throat completed 15 mL, Mouth/Throat, scuba dive training instructor, Aysha 03/28/20 at 0900, For 1 dose, Pre-op
Swish for 30 seconds and spit in pre-induction unit
[facility] Medication administered onsite dexamethasone (DECADRON) injection 4 mg [id number] 03/28/20 09:00:00 AM EDT 4 mg Intravenous completed 4 mg, Intr avenous, scuba dive training instructor, Aysha 03/28/20 at 0900, For 1 dose, Pre-op
To be administered just prior to to transport to operating room.Hold if patient is diabetic or if stress dose steroids are o rdered
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
To be administered just prior to to transport to operating room
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
To be administered just prior to to transport to operating room
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
To be administered just prior to to transport to operating room
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
Infusion started on unit prior to transfer to operating room
[facility] Perioperative Pharmacoprophylaxis Medication administered onsite Magnesium Chloride 0.52904 MEQ/ML / Pota ssium Chloride 0.0497 MEQ/ML / Sodium Acetate 0.0163 MEQ/ML / Sodium Chloride 0.0899 MEQ/ML / Sodium gluconate 5.02 MG/ML Injectable Solution [Normosol-R] electrolyte-R (NORMOSOL-R/PLASMALYTE-R) solution electrolyte-R (NORMOSOL-R/PLASMALYTE-R) solution 03/28 09:00:00 AM EDT Intravenous aborted at 1 00 mL/hr, Intravenous, Continuous, Starting Aysha 03/28/20 at 0900, Pre-op [facility] Medication administered onsite 10-325 mg 03/27/2020 12:00:00 AM EDT tablet 90 TAKE ONE TABLET BY MOUTH EVERY 8 HOURS NEEDED MAXIMUM DAILY DOSE = 3 TABLETS TAKE ONE TABLET BY MOUTH EVERY 8 HOURS NEEDED MAXIMUM DAILY DOSE = 3 TABLETS SOLD: 03/27/2020 [facility] Acetaminophen 325 MG / Hydrocodone Edward trate 10 MG Oral Tablet [Cleveland] Cleveland 10-325 MG Cleveland 10-325 MG 03/27/2020 12:00:00 AM EDT 1.0 {tablet_as_ needed} active [place] 10-325 MG eCW1 ([facility]) Acetaminophen 325 MG / Hydrocodone Edward trate 10 MG Oral Tablet [Cleveland] Cleveland 10-325 MG Cleveland 10-325 MG 03/27/2020 12:00:00 AM EDT 1.0 {tablet_as_ needed} active [place] 10-325 MG eCW1 ([facility]) Acetaminophen 325 MG / Hydrocodone Edward trate 10 MG Oral Tablet [C[place]] Cleveland 10-325 MG Cleveland 10-325 MG 03/27/2020 12:00:00 AM EDT active 1 tablet as needed eCW1 ([facility]cludes [facility]) 100 mg 02/26/2020 12:00:00 AM EDT capsule 30 TAKE ONE CAPSULE BY MOUTH AT BEDTIME TAKE ONE CAPSULE BY MOUTH AT BEDTIME SOLD: 04/12/2020 [facility] 100 mg 02/26/2020 12:00:00 AM EDT capsule 30 TAKE ONE CAPSULE BY MOUTH AT BEDTIME TAKE ONE CAPSULE BY MOUTH AT BEDTIME SOLD: 02/29/2020 [facility] 100 mg 02/26/2020 12:00:00 AM EDT capsule 30 TAKE ONE CAPSULE BY MOUTH AT BEDTIME TAKE ONE CAPSULE BY MOUTH AT BEDTIME SOLD: 05/22/2020 [facility] Alprazolam 0.5 MG Oral Tablet ALPRAZOLAM 02/24/2020 12:00:00 AM EDT ta blet 60 TAKE ONE TABLET BY MOUTH TWICE A DAY MAXIMUM DAILY DOSE = 2 TABLETS TAKE ONE TABLET BY MOUTH TWICE A DAY MAXIMUM DAILY DOSE = 2 TABLETS SOLD: 02/24/2020 [facility] 300 mg 02/24/2020 12:00:00 AM EDT capsule 60 TAKE ONE CAPSULE BY MOUTH EVERY MORNING AND 1 CAPSULE BY MOUTH MIDDAY TAKE ONE CAPSULE BY MOUTH EVERY MORNING AND 1 CAPSULE BY MOUTH MIDDAY SOLD: 05/22/2020 [facility] 300 mg 02/24/2020 12:00:00 AM EDT capsule 60 TAKE ONE CAPSULE BY MOUTH EVERY MORNING AND 1 CAPSULE BY MOUTH MIDDAY TAKE ONE CAPSULE BY MOUTH EVERY MORNING AND 1 CAPSULE BY MOUTH MIDDAY SOLD: 02/24/2020 [facility] 300 mg 02/24/2020 12:00:00 AM EDT capsule 60 TAKE ONE CAPSULE BY MOUTH EVERY MORNING AND 1 CAPSULE BY MOUTH MIDDAY TAKE ONE CAPSULE BY MOUTH EVERY MORNING AND 1 CAPSULE BY MOUTH MIDDAY SOLD: 04/12/2020 [facility] gabapentin 300 MG Oral Capsule Gabapentin 300 MG Gabapentin 300 MG 02/23/2020 12:00:00 AM EDT 1.0 {capsule} active G abapentin 300 MG eCW1 ([facility]) gabapentin 300 MG Oral Capsule Gabapentin 300 MG Gabapentin 300 MG 02/23/2020 12:00:00 AM EDT 1.0 {capsule} active G abapentin 300 MG eCW1 ([facility]cludes [facility]) gabapentin 300 MG Oral Capsule Gabapentin 300 MG Gabapentin 300 MG 02/23/2020 12:00:00 AM EDT 1.0 {capsule} active G abapentin 300 MG eCW1 ([facility]) Alprazolam 0.5 MG Oral Tablet [Xanax] Xanax 0.5 MG Xanax 0.5 MG 02/23/2020 12:00:00 AM EDT 1.0 {tablet} active Xa nax 0.5 MG eCW1 ([facility]) Alprazolam 0.5 MG Oral Tablet [Xanax] Xanax 0.5 MG Xanax 0.5 MG 02/23/2020 12:00:00 AM EDT 1.0 {tablet} active Xa nax 0.5 MG eCW1 ([facility]) gabapentin 300 MG Oral Capsule Gabapentin 300 MG Gabapentin 300 MG 02/23/2020 12:00:00 AM EDT 1.0 {capsule} active G abapentin 300 MG eCW1 ([facility]) gabapentin 300 MG Oral Capsule Gabapentin 300 MG Gabapentin 300 MG 02/23/2020 12:00:00 AM EDT 1.0 {capsule} active G abapentin 300 MG eCW1 ([facility]cludes [facility]) gabapentin 300 MG Oral Capsule Gabapentin 300 MG Gabapentin 300 MG 02/23/2020 12:00:00 AM EDT 1.0 {capsule} active G abapentin 300 MG eCW1 ([facility]cludes [facility]) gabapentin 300 MG Oral Capsule Gabapentin 300 MG Gabapentin 300 MG 02/23/2020 12:00:00 AM EDT active 1 capsul e eCW1 ([facility]cludes [facility]) Alprazolam 0.5 MG Oral Tablet [Xanax] Xanax 0.5 MG Xanax 0.5 MG 02/23/2020 12:00:00 AM EDT active 1 tablet eCW1 ([facility]cludes [facility]) gabapentin 300 MG Oral Capsule Gabapentin 300 MG Gabapentin 300 MG 02/23/2020 12:00:00 AM EDT 1.0 {capsule} active G abapentin 300 MG eCW1 ([facility]cludes [facility]) gabapentin 300 MG Oral Capsule Gabapentin 300 MG Gabapentin 300 MG 02/23/2020 12:00:00 AM EDT 1.0 {capsule} active G abapentin 300 MG eCW1 ([facility]cludes [facility]) gabapentin 300 MG Oral Capsule Gabapentin 300 MG Gabapentin 300 MG 02/23/2020 12:00:00 AM EDT 1.0 {capsule} active G abapentin 300 MG eCW1 ([facility]cludes [facility]) gabapentin 300 MG Oral Capsule Gabapentin 300 MG Gabapentin 300 MG 02/23/2020 12:00:00 AM EDT 1.0 {capsule} active G abapentin 300 MG eCW1 ([facility]cludes [facility]) Alprazolam 0.5 MG Oral Tablet [Xanax] Xanax 0.5 MG Xanax 0.5 MG 02/23/2020 12:00:00 AM EDT active 1 tablet eCW1 ([facility]) Acetaminophen 325 MG / Hydrocodone Edward trate 10 MG Oral Tablet [C[place]] Cleveland 10-325 MG Cleveland 10-325 MG 02/23/2020 12:00:00 AM EDT active 1 tablet as needed eCW1 ([facility]) gabapentin 300 MG Oral Capsule Gabapentin 300 MG Gabapentin 300 MG 02/23/2020 12:00:00 AM EDT active 1 capsul e eCW1 ([facility]cludes [facility]) gabapentin 300 MG Oral Capsule Gabapentin 300 MG Gabapentin 300 MG 02/23/2020 12:00:00 AM EDT active 1 capsul e eCW1 ([facility]) 10-325 mg 02/23/2020 12:00:00 AM EDT tablet 90 TAKE ONE TABLET BY MOUTH EVERY 8 HOURS NEEDED MAXIMUM DAILY DOSE = 3 TABLETS TAKE ONE TABLET BY MOUTH EVERY 8 HOURS NEEDED MAXIMUM DAILY DOSE = 3 TABLETS SOLD: 02/24/2020 [facility] gabapentin 300 MG Oral Capsule Gabapentin 300 MG Gabapentin 300 MG 02/23/2020 12:00:00 AM EDT 1.0 {capsule} active G abapentin 300 MG eCW1 ([facility]cludes [facility]) Acetaminophen 325 MG / Hydrocodone Edward trate 10 MG Oral Tablet [Cleveland] Cleveland 10-325 MG Cleveland 10-325 MG 02/23/2020 12:00:00 AM EDT active 1 tablet as needed eCW1 ([facility]) Acetaminophen 325 MG / Hydrocodone Edward trate 10 MG Oral Tablet [C[place]] Cleveland 10-325 MG Cleveland 10-325 MG 02/23/2020 12:00:00 AM EDT active 1 tablet as needed eCW1 ([facility]cludes [facility]) gabapentin 300 MG Oral Capsule Gabapentin 300 MG Gabapentin 300 MG 02/23/2020 12:00:00 AM EDT 1.0 {capsule} active G abapentin 300 MG eCW1 ([facility]) 10-325 mg 01/29/2020 12:00:00 AM EDT tablet 45 TAKE ONE TABLET BY MOUTH EVERY 8 HOURS NEEDED MAXIMUM DAILY DOSE = 3 TABLETS TAKE ONE TABLET BY MOUTH EVERY 8 HOURS NEEDED MAXIMUM DAILY DOSE = 3 TABLETS SOLD: 01/30/2020 [facility] Acetaminophen 325 MG / Hydrocodone Edward trate 10 MG Oral Tablet [Cleveland] Cleveland 10-325 MG Cleveland 10-325 MG 01/29/2020 12:00:00 AM EDT active 1 tablet as needed eCW1 ([facility]cludes [facility]) Acetaminophen 325 MG / Hydrocodone Edward trate 10 MG Oral Tablet [C[place]] Cleveland 10-325 MG Cleveland 10-325 MG 01/02/2020 12:00:00 AM EST active 1 tablet as needed eCW1 ([facility]cludes [facility]) 10-325 mg 01/02/2020 12:00:00 AM EST tablet 45 TAKE ONE TABLET BY MOUTH EVERY 8 HOURS NEEDED MAXIMUM DAILY DOSE = THREE TABLETS TAKE ONE TABLET BY MOUTH EVERY 8 HOURS NEEDED MAXIMUM DAILY DOSE = THREE TABLETS SOLD: 01/02/2020 [facility] Acetaminophen 325 MG / Hydrocodone Edward trate 10 MG Oral Tablet [C[place]] Cleveland 10-325 MG Cleveland 10-325 MG 01/02/2020 12:00:00 AM EST active 1 tablet as needed eCW1 ([facility]) 100 mg 01/02/2020 12:00:00 AM EST capsule 150 TAKE 2 CAPSULES EVERY MORNING AND 1 AT NOON THEN TAKE 2 CAPSULES EVERY EVENING DIRECTED TAKE 2 CAPSULES EVERY MORNING AND 1 AT NOON THEN TAKE 2 CAPSULES EVERY EVENING DIRECTED SOLD: 02/04/2020 [facility] 100 mg 01/02/2020 12:00:00 AM EST capsule 150 TAKE 2 CAPSULES EVERY MORNING AND 1 AT NOON THEN TAKE 2 CAPSULES EVERY EVENING DIRECTED TAKE 2 CAPSULES EVERY MORNING AND 1 AT NOON THEN TAKE 2 CAPSULES EVERY EVENING DIRECTED SOLD: 01/03/2020 [facility] Acetaminophen 325 MG / Hydrocodone Edward trate 10 MG Oral Tablet [C[place]] Cleveland 10-325 MG Cleveland 10-325 MG 12/05/2019 12:00:00 AM EST active 1 tablet as needed eCW1 ([facility]cludes [facility]) 10-325 mg 12/05/2019 12:00:00 AM EST tablet 45 TAKE ONE TABLET BY MOUTH EVERY 8 HOURS MAXIMUM DAILY DOSE = THREE TABLETS TAKE ONE TABLET BY MOUTH EVERY 8 HOURS MAXIMUM DAILY DOSE = THREE TABLETS SOLD: 12/05/2019 [facility] gabapentin 100 MG Oral Capsule Gabapentin 100 MG Gabapentin 100 MG 11/20/2019 12:00:00 AM EST active 1 cap e CW1 ([facility]cludes [facility]) Gabapentin 100 MG UNK 11/20/2019 12:00:00 AM EST active 1 capsule eCW1 ([facility] Includes [facility]) gabapentin 100 MG Oral Capsule Gabapentin 100 MG Gabapentin 100 MG 11/20/2019 12:00:00 AM EST active 1 cap e CW1 ([facility] Includes [facility]) gabapentin 100 MG Oral Capsule Gabapentin 100 MG Gabapentin 100 MG 11/20/2019 12:00:00 AM EST active Gabapent in 100 MG eCW1 ([facility] Includes [facility]) gabapentin 100 MG Oral Capsule Gabapentin 100 MG Gabapentin 100 MG 11/20/2019 12:00:00 AM EST active 1 capsul e eCW1 ([facility] Includes [facility]) gabapentin 100 MG Oral Capsule Gabapentin 100 MG Gabapentin 100 MG 11/20/2019 12:00:00 AM EST active Gabapent in 100 MG eCW1 ([facility] Includes [facility]) gabapentin 100 MG Oral Capsule Gabapentin 100 MG Gabapentin 100 MG 11/20/2019 12:00:00 AM EST active 1 capsul e eCW1 ([facility] Includes [facility]) gabapentin 100 MG Oral Capsule Gabapentin 100 MG Gabapentin 100 MG 11/20/2019 12:00:00 AM EST active 1 to 2 c ap eCW1 ([facility] Includes [facility]) gabapentin 100 MG Oral Capsule Gabapentin 100 MG Gabapentin 100 MG 11/20/2019 12:00:00 AM EST active 1 cap e CW1 ([facility]cludes [facility]) 100 mg 11/20/2019 12:00:00 AM EST capsule 90 TAKE ONE CAPSULE BY MOUTH EVERY 8 HOURS DIRECTED TAKE ONE CAPSULE BY MOUTH EVERY 8 HOURS DIRECTED SO LD: 11/20/2019 [facility] gabapentin 100 MG Oral Capsule Gabapentin 100 MG Gabapentin 100 MG 11/20/2019 12:00:00 AM EST active 1 to 2 c ap eCW1 ([facility] Includes [facility]) Cyclobenzaprine hydrochloride 10 MG Oral Tablet CYCLOBENZAPR INE HCL 11/17/2019 12:00:00 AM EST tablet 30 TAKE ONE TABLET BY MOUTH THREE TIMES A DAY FOR MUSCLE SPASMS TAKE ONE TABLET BY MOUTH THREE TIMES A DAY FOR MUSCLE SPASMS SOLD: 11/17/2019 [facility] Acetaminophen 325 MG / Hydrocodone Edward trate 5 MG Oral Tablet [C[place]] Cleveland 5- 325 MG Cleveland 5-325 MG 10/23/2019 12:00:00 AM EST 1.0 {tablet_as_needed} suspended [place] 5-325 MG eCW1 ([facility]cludes [facility]) Acetaminophen 325 MG / Hydrocodone Edward trate 5 MG Oral Tablet [[place]] Cleveland 5- 325 MG Cleveland 5-325 MG 10/23/2019 12:00:00 AM EST s uspended 1 tablet as needed eCW1 ([facility]cludes [facility]) Acetaminophen 325 MG / Hydrocodone Edward trate 5 MG Oral Tablet [[place]] Cleveland 5- 325 MG Cleveland 5-325 MG 10/23/2019 12:00:00 AM EST 1.0 {tablet_as_needed} suspended [place] 5-325 MG eC1 ([facility]cludes [facility]) 5-325 mg 10/23/2019 12:00:00 AM EST tablet 90 TAKE ONE TABLET BY MOUTH EVERY 8 HOURS NEEDED MAXIMUM DAILY DOSE = 3 TABLETS TAKE ONE TABLET BY MOUTH EVERY 8 HOURS NEEDED MAXIMUM DAILY DOSE = 3 TABLETS SOLD: 10/24/2019 [facility] Acetaminophen 325 MG / Hydrocodone Edward trate 5 MG Oral Tablet [[place]] [place] 5- 325 MG Cleveland 5-325 MG 10/23/2019 12:00:00 AM EST 1.0 {tablet_as_needed} suspended [place] 5-325 MG eCW1 ([facility] Includes [facility]) Acetaminophen 325 MG / Hydrocodone Edward trate 5 MG Oral Tablet [[place]] [place] 5- 325 MG Cleveland 5-325 MG 10/23/2019 12:00:00 AM EST s uspended 1 tablet as needed eCW1 ([facility] Includes [facility]) Acetaminophen 325 MG / Hydrocodone Edward trate 5 MG Oral Tablet [[place]] [place] 5- 325 MG Cleveland 5-325 MG 10/23/2019 12:00:00 AM EST a ctive 1 tablet as needed eCW1 ([facility] Includes [facility]) Acetaminophen 325 MG / Hydrocodone Edward trate 5 MG Oral Tablet [[place]] [place] 5- 325 MG Cleveland 5-325 MG 10/23/2019 12:00:00 AM EST a ctive 1 tablet as needed eCW1 ([facility] Includes [facility]) Acetaminophen 325 MG / Hydrocodone Edward trate 5 MG Oral Tablet [[place]] [place] 5- 325 MG Cleveland 5-325 MG 10/23/2019 12:00:00 AM EST 1.0 {tablet_as_needed} suspended [place] 5-325 MG eCW1 ([facility] Includes [facility]) Acetaminophen 325 MG / Hydrocodone Edward trate 5 MG Oral Tablet [[place]] [place] 5- 325 MG Cleveland 5-325 MG 10/23/2019 12:00:00 AM EST 1.0 {tablet_as_needed} suspended [place] 5-325 MG eCW1 ([facility] Includes [facility]) Acetaminophen 325 MG / Hydrocodone Edward trate 5 MG Oral Tablet [[place]] Cleveland 5- 325 MG Cleveland 5-325 MG 10/23/2019 12:00:00 AM EST 1.0 {tablet_as_needed} suspended [place] 5-325 MG eCW1 ([facility] Includes [facility]) Acetaminophen 325 MG / Hydrocodone Edward trate 5 MG Oral Tablet [[place]] Cleveland 5- 325 MG Cleveland 5-325 MG 10/23/2019 12:00:00 AM EST s uspended 1 tablet as needed eCW1 ([facility] Includes [facility]) [place] 5-325 MG UNK 10/23/2019 12:00:00 AM EST active 1 tablet as needed eCW1 ([facility] Includes [facility]) Acetaminophen 325 MG / Hydrocodone Edward trate 5 MG Oral Tablet [[place]] Cleveland 5- 325 MG Cleveland 5-325 MG 10/23/2019 12:00:00 AM EST 1.0 {tablet_as_needed} suspended [place] 5-325 MG eCW1 ([facility] Includes [facility]) Acetaminophen 325 MG / Hydrocodone Edward trate 5 MG Oral Tablet [[place]] Cleveland 5- 325 MG Cleveland 5-325 MG 10/23/2019 12:00:00 AM EST 1.0 {tablet_as_needed} suspended [place] 5-325 MG eCW1 ([facility] Includes [facility]) Acetaminophen 325 MG / Hydrocodone Edward trate 5 MG Oral Tablet [[place]] Cleveland 5- 325 MG Cleveland 5-325 MG 10/23/2019 12:00:00 AM EST 1.0 {tablet_as_needed} suspended [place] 5-325 MG eCW1 (Count Includes [facility]) Acetaminophen 325 MG / Hydrocodone Edward trate 5 MG Oral Tablet [[place]] Cleveland 5- 325 MG Cleveland 5-325 MG 10/23/2019 12:00:00 AM EST 1.0 {tablet_as_needed} suspended [place] 5-325 MG eCW1 ([facility] Includes [facility]) Acetaminophen 325 MG / Hydrocodone Edward trate 5 MG Oral Tablet [[place]] Cleveland 5- 325 MG Cleveland 5-325 MG 10/23/2019 12:00:00 AM EST 1.0 {tablet_as_needed} suspended [place] 5-325 MG eCW1 ([facility] Includes [facility]) Acetaminophen 325 MG / Hydrocodone Edward trate 5 MG Oral Tablet [[place]] Cleveland 5- 325 MG Cleveland 5-325 MG 10/23/2019 12:00:00 AM EST 1.0 {tablet_as_needed} suspended [place] 5-325 MG eCW1 ([facility] Includes [facility]) Acetaminophen 325 MG / Hydrocodone Edward trate 5 MG Oral Tablet [[place]] Cleveland 5- 325 MG Cleveland 5-325 MG 10/23/2019 12:00:00 AM EST 1.0 {tablet_as_needed} suspended [place] 5-325 MG eCW1 ([facility] Includes [facility]) Acetaminophen 325 MG / Hydrocodone Edward trate 5 MG Oral Tablet [[place]] Cleveland 5- 325 MG Cleveland 5-325 MG 10/23/2019 12:00:00 AM EST a ctive 1 tablet as needed eCW1 ([facility] Includes [facility]) Acetaminophen 325 MG / Hydrocodone Edward trate 5 MG Oral Tablet [[place]] Cleveland 5- 325 MG Cleveland 5-325 MG 10/23/2019 12:00:00 AM EST 1.0 {tablet_as_needed} suspended [place] 5-325 MG eCW1 ([facility] Includes [facility]) [place] 5-325 MG UNK 10/23/2019 12:00:00 AM EST active 1 tablet as needed eCW1 ([facility] Includes [facility]) Acetaminophen 325 MG / Hydrocodone Edward trate 5 MG Oral Tablet [[place]] Cleveland 5- 325 MG Cleveland 5-325 MG 10/23/2019 12:00:00 AM EST 1.0 {tablet_as_needed} suspended [place] 5-325 MG eCW1 ([facility] Includes [facility]) Acetaminophen 325 MG / Hydrocodone Edward trate 5 MG Oral Tablet [[place]] [place] 5- 325 MG Cleveland 5-325 MG 10/23/2019 12:00:00 AM EST 1.0 {tablet_as_needed} suspended [place] 5-325 MG eCW1 ([facility] Includes [facility]) Acetaminophen 325 MG / Hydrocodone Edward trate 5 MG Oral Tablet [[place]] Cleveland 5- 325 MG Cleveland 5-325 MG 10/23/2019 12:00:00 AM EST 1.0 {tablet_as_needed} suspended [place] 5-325 MG eCW1 (Count Includes [facility]) Acetaminophen 325 MG / Hydrocodone Edward trate 5 MG Oral Tablet [[place]] [place] 5- 325 MG Cleveland 5-325 MG 10/23/2019 12:00:00 AM EST s uspended 1 tablet as needed eCW1 (Count Includes [facility]) Acetaminophen 325 MG / Hydrocodone Edward trate 5 MG Oral Tablet [Cleveland] Cleveland 5- 325 MG Cleveland 5-325 MG 10/23/2019 12:00:00 AM EST a ctive 1 tablet as needed eCW1 (Count Includes [facility]) Carisoprodol 350 MG Oral Tablet CARISOPRODOL 10/02/2019 12:00:00 AM EST tablet 30 TAKE ONE TABLET BY MOUTH DIMA RY 8 HOURS NEEDED MAXIMUM DAILY DOSE = THREE TABLETS TAKE ONE TABLET BY MOUTH EVERY 8 HOURS A S NEEDED MAXIMUM DAILY DOSE = THREE TABLETS SOLD: 10/06/2019 Cara leslie Acetaminophen 325 MG / Hydrocodone Edward trate 5 MG Oral Tablet [Cleveland] Cleveland 5- 325 MG Cleveland 5-325 MG 09/29/2019 12:00:00 AM EST a ctive 1 tablet as needed eCW1 (Count Includes [facility]) 7.5-325 mg 09/29/2019 12:00:00 AM EST tablet 21 TAKE ONE TABLET BY MOUTH EVERY 8 HOURS NEEDED FOR PAIN MAXIMUM DAILY DOSE = 3 TABLETS TAKE ONE TABLET BY MOUTH EVERY 8 HOURS NEEDED FOR PAIN MAXIMUM DAILY DOSE = 3 TABLETS SOLD: 09/29/2019 Cara Washburn Acetaminophen 325 MG / Hydrocodone Edward trate 7.5 MG Oral Tablet [[place]] Cleveland 7.5-325 MG Cleveland 7.5-325 MG 09/29/2019 12:00:00 AM EST active 1 tablet as needed eCW1 (Count Includes [facility]) 5 mg 09/26/2019 12:00:00 AM EST tablet 40 TAKE ONE TABLET BY MOUTH EVERY 6 HOURS NEEDED MAXIMUM DAILY DOSE = 4 TABLETS TAKE ONE TABLET BY MOUTH EVERY 6 HOURS NEEDED MAXIMUM DAILY DOSE = 4 TABLETS SOLD: 09/26/2019 [facility] Oxycodone Hydrochloride 5 MG Oral Tablet Oxycodone HCl 5 MG Oxycodone HCl 5 MG 09/26/2019 12:00:00 AM EST active 1 tablet as needed eCW1 (Count Includes [facility]) Ascorbic Acid 500 MG Oral Tablet ascorbic acid (VITAMI N C) 500 MG tablet ascorbic acid (VITAMIN C) 500 MG tablet 1000 mg Oral aborted Take 1,000 mg by mouth daily [facility] Insurance Providers Payer name Policy type / Coverage type Policy ID Covered alliance party ID Covered alliance party's relationship to angulo Policy Angulo [id number] [place] 302/[id number] [id number] INSURANCE COVID-19 COVID [place] C OVID EXCELLUS BCBS MEDICAID [id number] [place] [id number] EXCELLUS BCBS MEDICAID [id number] INSURANCE COVID-19 [id number] EXCELLUS BCBS B [id number] S YNC [id number] EXCELLUS C [id number] Self [id number] BCBS AMENA HMO [id number] SP [id number] EXCELLUS CNY BLUES[place]ELD BS [id number] 18 [id number] BLUE CROSS BLUE SHIELD -RECURRING [id number] 18 [id number] [place] PPO 302/307 [id number] SP [id number] Excell[employer] BCBS P [id number] S [id number] ANSI-Not a Secondary Insurance [id number] ANSI-Not a Secondary Insurance [id number] ANSI-Not a Secondary Insurance [id number] ANSI-Not a Secondary Insurance [id number] ANSI-Not a Secondary Insurance [id number] ANSI-Not a Secondary Insurance [id number] ANSI-Not a Secondary Insurance [id number] ANSI-Not a Secondary Insurance [id number] ANSI-Not a Secondary Insurance [id number] ANSI-Not a Secondary Insurance [id number] ANSI-Not a Secondary Insurance [id number] ANSI-Not a Secondary Insurance [id number] ANSI-Not a Secondary Insurance [id number] Excellus BCYO P [id number] S YNC [id number] ANSI-Not a Secondary Insurance [id number] ANSI-Not a Secondary Insurance [id number] ANSI-Not a Secondary Insurance [id number] ANSI-Not a Secondary Insurance [id number] ANSI-Not a Secondary Insurance [id number] ANSI-Not a Secondary Insurance [id number] ANSI-Not a Secondary Insurance [id number] ANSI-Not a Secondary Insurance [id number] ANSI-Not a Secondary Insurance [id number] BCBS/[place] Commercial [id number] Family Dependent [id number] ANSI-Not a Secondary Insurance [id number] ANSI-Not a Secondary Insurance [id number] ANSI-Not a Secondary Insurance [id number] ANSI-Not a Secondary Insurance [id number] EXCELLUS C [id number] Self [id number] EXCELLUS C [id number] Self [id number] ANSI-Not a Secondary Insurance [id number] ANSI-Not a Secondary Insurance [id number] ANSI-Not a Secondary Insurance [id number] ANSI-Not a Secondary Insurance [id number] ANSI-Not a Secondary Insurance [id number] [id number] ANSI-Not a Secondary Insurance [id number] ANSI-Not a Secondary Insurance [id number] ANSI-Not a Secondary Insurance [id number] ANSI-Not a Secondary Insurance [id number] ANSI-Not a Secondary Insurance [id number] ANSI-Not a Secondary Insurance [id number] ANSI-Not a Secondary Insurance [id number] ANSI-Not a Secondary Insurance [id number] ANSI-Not a Secondary Insurance [id number] [id number] ANSI-Not a Secondary Insurance [id number] [place] P[place] 302/307 [id number] SP [id number] HMO BLUE [id number] SP [id number] Excellus Blue Cross Commercial [id number] Self [id number] Ghi/Emblem HLTH (pr) Medigap Part B [id number] Family Depende nt [id number] [place] [id number] Self [id number] BLUE CROSS BLUE SHIELD-O/P [id number] 18 [id number] Ghi/Emblem HLTH (pr) Medigap Part B [id number] Family Depende nt [id number] [place] [id number] Self [id number] BCBS OF [place] 306/806 [id number] SP [id number] Ghi/Emblem HLTH (pr) Medigap Part B [id number] Family Depende nt [id number] [place]) [place] [id number] Self [id number] BLUE CROSS BAILEY PLAN [id number] SP [id number] EXCELLUS BCBS B [id number] S [id number] BLUE CROSS BLUE SHIELD-O/P [id number] 18 [id number] BLUE CROSS BLUE SHIELD-O/P [id number] 18 [id number] BLUE CROSS BLUE SHIELD-I/P [id number] 18 [id number] MEDICAID [id number] SP [id number] EXCELLUS BCBS P [id number] P [id number] BCBS [place] PPO 302/307 [id number] Problems, Conditions, and Diagnoses Code Display Name Description Problem Type Effective Dates Data Source(s) 00476448 Allergic asthma without status asthmatic us Allergic asthma without status asthmaticus Problem 10/24/2020 12:00:00 AM EST MEDENT ([facility], ) K57.92 [id number] Diverticulitis Problem 09/09/2020 12:00:00 A M EST eCW1 (Count Includes [facility]) M06.9 [id number] Rheumatoid arthritis , involving unspecified site, unspecified whether rheumatoid factor present Problem 09/09/2020 12:00:00 AM EST eCW1 (Count Includes [facility]) 92470523 Abnormal menstrual cycle Abnormal menstrual cycle Prob mykel 08/15/2020 12:00:00 AM EDT MEDENT ([facility]) F43.22 31957535 Adjustment disorder with anxiety Problem 04/26/2020 12:00:00 AM EDT eCW1 (Count Includes [facility]) F43.23 [id number] Adjustment disorder with mixed a nxiety and depressed mood Problem 04/26/2020 12:00:00 AM EDT eCW1 ([facility]) F41.9 02109062 Anxiety Problem 02/23/2020 12:00:00 AM ED T eCW1 (Count Includes [facility]) F41.9 82073527 Anxiety Problem 02/23/2020 12:00:00 AM ED T eCW1 (Count Includes [facility]) M54.5 Chronic midline low back pain Chronic midline low back pain 44193934 01/17/2020 12:00:00 AM EDT [facility] G89.29 Other chronic pain Other chronic pain 15266565 09/2020 12:00:00 AM EDT [facility] M47.816 Lumbar spondylosis Lumbar spondylosis 00520234 09/2020 12:00:00 AM EDT [facility] R07.89 201055169 Left-sided chest wall pain Problem 0 12:00:00 AM EDT eCW1 (Count Includes [facility]) R07.89 776566240 Left-sided chest wall pain Problem 0 12:00:00 AM EDT eCW1 (Count Includes [facility]) G89.29 Other chronic pain Other chronic pain Diagnosis 09:05:27 AM EDT [facility] M54.5 Low back pain Low back pain Diagnosis 05/23/2020 09:05:27 AM EDT [facility] M54.9 Dorsalgia, unspecified Dorsalgia, unspecified Diagnosi s 04/12/2020 12:46:50 PM EDT [facility] M54.42 Lumbago with sciatica, left side Lumbago with sc iatica, left side Diagnosis 03/28/2020 07:24:00 AM EDT [facility] M54.41 Lumbago with sciatica, right side Lumbago with s ciatica, right side Diagnosis 03/28/2020 07:24:00 AM EDT [facility] M47.816 Spondylosis without myelopathy or radicu lopathy, lumbar region Spondylosis without myelopathy or radicu Diagnosis 03/28/2020 07:24:00 AM EDT [facility] J98.8 Other specified respiratory disorders Ot her specified respiratory disorders Diagnosis 03/25/2020 01:25:17 PM EDT [facility] U07.1 COVID-19 COVID-19 Diagnosis 03/25/2020 01:25:17 PM ED T [facility] Surgeries/Procedures Procedure Description Date Indications Data Source(s) FLUOROSCOPY SPX <1 HOUR PHYSICIAN TIME XR OR THORACIC SPINE STA T 03/28/2020 12:09 PM EDT 03/28/2020 04:09:50 PM EDT [facility] GLUC BLD GLUC MNTR DEV CLEARED FDA SPEC HOME USE POCT GLUCOSE Routine 03/28/2020 8:37 AM EDT 03/28/2020 12:37:00 PM EDT [facility] GLUC BLD GLUC MNTR DEV CLEARED FDA SPEC HOME USE POCT GLUCOSE Routine 03/28/2020 8:36 AM EDT 03/28/2020 12:36:00 PM EDT [facility] POCT I-STAT BETA HCG POCT I-STAT BETA HCG Routine 03/28/2020 8:28 AM EDT 03/28/2020 12:28:00 PM EDT [facility] URNLS DIP STICK/TABLET RGNT AUTO W/O MICROSCOPY URINALYSIS W/O MICRO Routine 03/25/2020 12:00 PM EDT Lumbar spondylosis Other chronic pain Chronic midline low back pain, unspecified whether sciatica present 03/25/2020 04:00:00 PM EDT Chronic midline low back pain, unspecifi ed whether sciatica presentOther chronic painLumbar spondylosis [facility] Chronic midline low back pain, unspecifi ed whether sciatica present Other chronic pain Lumbar spondylosis 2019 NCOV AMPLIFIED 2019 NCOV AMPLIFIED STAT 03/25/2020 9 :20 AM EDT COVID-19 03/25/2020 01:20:00 PM EDT COVID-19 [facility] COVID-19 THROMBOPLASTIN TIME PARTIAL PLASMA/WHOLE BLOOD APTT Routine 03/25/2020 8:55 AM EDT Lumbar spondylosis Other chronic pain Chronic midline low back pain, unspecified whether sciatica present 03/25/2020 12:55:00 PM EDT Chronic midline low back pain, unspecifi ed whether sciatica presentOther chronic painLumbar spondylosis [facility] Chronic midline low back pain, unspecifi ed whether sciatica present Other chronic pain Lumbar spondylosis PROTHROMBIN TIME PROTIME-INR Routine 03/25/2020 8:55 AM EDT Lumbar spondylosis Other chronic pain Chronic midline low back pain, unspecified whether sciatica present 03/25/2020 12:55:00 PM EDT Chronic midline low back pain, unspecifi ed whether sciatica presentOther chronic painmbar spondylosis [facility] Chronic midline low back pain, unspecifi ed whether sciatica present Other chronic pain Lumbar spondylosis BLOOD COUNT COMPLETE AUTOMATED CBC Routine 0 8:55 AM EDT Lumbar spondylosis Other chronic pain Chronic midline low back pain, unspecified whether sciatica present 03/25/2020 12:55:00 PM EDT Chronic midline low back pain, unspecifi ed whether sciatica presentOther chronic painLumbar spondylosis [facility] Chronic midline low back pain, unspecifi ed whether sciatica present Other chronic pain Lumbar spondylosis BLOOD TYPING ABO TYPE AND SCREEN Routine 03/25/2020 8:55 AM EDT Lumbar spondylosis Other chronic pain Chronic midline low back pain, unspecified whether sciatica present 03/25/2020 12:55:00 PM EDT Chronic midline low back pain, unspecifi ed whether sciatica presentOther chronic painLumbar spondylosis [facility] Chronic midline low back pain, unspecifi ed whether sciatica present Other chronic pain Lumbar spondylosis HEMOGLOBIN GLYCOSYLATED A1C HEMOGLOBIN A1C Routine 03/25/2020 8:55 AM EDT Lumbar spondylosis Other chronic pain Chronic midline low back pain, unspecified whether sciatica present 03/25/2020 12:55:00 PM EDT Chronic midline low back pain, unspecifi ed whether sciatica presentOther chronic painLumbar spondylosis [facility] Chronic midline low back pain, unspecifi ed whether sciatica present Other chronic pain Lumbar spondylosis COMPREHENSIVE METABOLIC PANEL COMPREHENSIVE METABOLIC PANEL Rou ghazala 03/25/2020 8:55 AM EDT Lumbar spondylosis Other chronic pain Chronic midline low back pain, unspecified whether sciatica present 03/25/2020 12:55:00 PM EDT Chronic midline low back pain, unspecifi ed whether sciatica presentOther chronic painLumbar spondylosis [facility] Chronic midline low back pain, unspecifi ed whether sciatica present Other chronic pain Lumbar spondylosis ECG ROUTINE ECG W/LEAST 12 LDS TRCG ONLY W/O I&R ECG 12-LEAD Routine 03/25/2020 8:50 AM EDT Lumbar spondylosis Other chronic pain Chronic midline low back pain, unspecified whether sciatica present 03/25/2020 12:50:06 PM EDT Chronic midline low back pain, unspecifi ed whether sciatica presentOther chronic painLumbar spondylosis [facility] Chronic midline low back pain, unspecifi ed whether sciatica present Other chronic pain Lumbar spondylosis Medicare, Tricare, Mart[employer], PC-INTERPRETATION AND REPORT 03/21/2020 12:00:00 AM EDT eCW1 ([facility]) Electrocardiogram, routine ecg with 12 l pastor; performed as a screening for the initial preventive physical examination with interpretation and report 03/21/2020 12:00:00 AM EDT [facility] ([facility]) Medicare, Tricare, [employer], FC-ELECTROCARDIOGRAM, TRACING ON LY 03/21/2020 12:00:00 AM EDT eC1 ([facility]) EKG- ALL NON MCR/TRI PAYERS 03/21/2020 12:00:00 AM EDT eCW1 (Count Includes [facility]) TeleMedicine Est. Pt. Level 3 03/08/2020 12:00:00 AM E DT eCW1 (Count Includes [facility]) ESTABILISHED PATIENT [facility] CHARGE 020 12:00:00 AM EST eCW1 (Count Includes [facility]) Eligible professional attests to tato resendiz in the medical record they obtained, updated, or reviewed the patient's current medications 01/12/2020 12:00:00 AM EST eCW1 ([facility]) Pain assessment documented as positive u sing a standardized tool and a follow-up plan is documented 01/12/2020 12:00:00 AM EST e CW1 (Count Includes [facility]) NEEDLE LOCALIZATION BY XRAY 11/23/2019 12:00:00 AM EST eCW1 (Count Includes [facility]) RADXPS IN END [id number] PXD 11/23/2019 12:00:00 AM ES T eCW1 (Count Includes [facility]) LEVONORGESTREL INTRAUTERN CNTRACPT 11/15/2019 12:00:00 AM EST eCW1 (Count Includes [facility]) INSERT INTRAUTERINE DEVICE 11/15/2019 12:00:00 AM EST eCW1 (Count Includes [facility]) Results ID Date Data Source [id number] 11/16/2020 12:00:00 PM EST [facility] Name Value Range Interpretation Code Description Data Malini rce(s) Supporting Document(s) SARS coronavirus 2 RNA Not Detected [facility] [place] This lab was ordered by [facility] and reported by [facility]. ID Date Data Source [id number] 07/09[facility]2020 01[facility]55[facility] TH[facility]ACIC AP LATCLINICAL HISTORY: Chronic mid line low back pain.COMPARISON: None available.TECHNIQUE: 2 views of the thoracic spine were obtained.FINDINGS: Spinal stimulator electrode noted in the midthoracic spine levels T6 through T8. Osseous structures: Intact. No fractures seen.Alignment: No focal malalignment.Soft tissues:Within normal limits.Disc spaces:The disc spaces are well maintained.IMPRESSION: Negative T- spine.Dictated by: RYAN PINK M.D. on 07/09/2020 Transcribed by: abelino on <<TranscriptionDateTime1>>CDS G code: ,CDS Modifier: ,cc:ELIAS US JR PA Name Value Range Interpretation Code Description Data Malini rce(s) Supporting Document(s) ID Date Data Source [id number] 04/04/2020 09:32:53 AM EDT [facility]FORMATIONPatient MRN Name Date of Age Gend*PT [id number] Juanita Driscoll 1980 39 years F SDCXPT Location Admission Date/Time Visit ID Attending [id number] 03/28/20 0724 --- --- EPI ID CSN Admitting Provider [id number] Leslie Hubbard MD([id number]) Attestation signed by Leslie Hubbard MD at 04/04/2020 9:32 AMI saw and evaluated the patient and reviewed PA's note. I agree with thehistory, physical and medical decision making with the following additions,exceptions, and/or observations:noneSignature: REKHA Munroeate: April 04, 2020Time: 9:32 AM --Surgical Discharge Pinky DriscollMRN: [id number] date: 03/28/2020Admitting Physician: REKHA Munroeischarge date and time:Discharge Orders Placed(From admission, onward) Start Ordered Unscheduled Discharge patient OnceExpected Discharge Date: 03/29/20Discharge Disposition: Home or Self Care 03/28/20 1524Discharge Physician: Yasmeen Morelos Diagnosis: <principal problem not specified>Secondary Diagnoses:Active Hospital Problems Diagnosis Date Noted Lumbar spondylosis 01/17/2020 Other chronic pain 01/17/2020 Chronic midline low back pain 01/17/2020Resolved Hospital ProblemsNo resolved problems to display.Discharge Medications:Your medication listCONTINUE taking these medications Instructions Last Dose Given Morning Afternoon Evening Bedtime As NeededDAILY NOY per tablet Take 1 tablet by mouth dailygabapentin 100 MG capsuleCommonly known as: NEURONTIN Take 100 mg by mouth nightlygabapentin 300 MG capsuleCommonly known as: NEURONTIN Take 300 mg by mouth 2 (two) times a day (morning and noon)HYDROcodone-acetaminophen 10-325 MG per tabletCommonly known as: NORCO 10-325 Take 1 tablet by mouth 3 (three) times a day as needed for painSTOP taking these medicationsascorbic acid 500 MG tabletCommonly known as: VITAMIN CIndication for Admission: s/p adjustment of DCS paddlesHospital Course & Complications: nonePatient is a 39 yo female with [facility]. She began noting recurrent right hip pain a few months thereafter anddespite pain meds, this has not improved. She was seen and evaluated by Alfredo and upon imaging it was noted left sided lead migration which wouldaccount for right sided pain. She has elected to be scheduled for revision DCSfor readjustment of lead placement with Dr Hubbard.Post operatively she felt better. She noted improvement to right sided hip painand ambulation was improved. Urination was WNL and she tolerated regular diet.She was able to be discharged to home and is to have post op appointment in~2weeks. She has been given a discharge instruction sheet for post op care.Past Medical History:Past Medical History:Diagnosis Date Asthma Chronic midline low back pain Lumbar spondylolysis PONV (postoperative nausea and vomiting) RBBBSurgical Procedures:Procedure(s) with comments:NEUROSTIMULATOR, SPINAL, LEAD REVISION. (N/A) - ICON AircraftSignificant Diagnostic Studies: see HPITreatments: IV hydration, antibiotics: vancomycin, analgesia: norco and PTDischarge Exam:Vitals: Temp: [98.2 F-98.5 F] 98.5 FHeart Rate: [88-118] 93Resp: [14-24] 16BP: (90-150)/(57-80) 113/73see progress note on date of dischargeItems needing special attention: follow discharge instruction sheetDischarged Condition:goodDisposition: Home or Self CareSignature: Cindi Morelos: March 28, 2020Time: 3:24 PM Name Value Range Interpretation Code Description Data Malini rce(s) Supporting Document(s) ID Date Data Source [id number] 03/29/2020 07:47:30 AM EDT [facility]FORMATIONPatient MRN Name Date of Age Gend*PT [id number] Driscoll Juanita [place] 1980 39 years F SDCXPT Location Admission Date/Time Visit ID Attending [id number] 03/28/20 0724 --- Leslie Hubbard MD([id number]) EPI ID CSN Admitting Provider [id number] Leslie Hubbard MD([id number]) [place] [address] OPERATIVE REPORT OPNAME: DRISCOLLJUANITA ADAMS#: [id number] #: [id number] ADMISSION DATE: 03/28/2020DOB: 1980 SEX: F PT TYPE: S SURACCT #: [id number] CARE PHYSICIAN:DATE OF OPERATION: 03/28/2020SURGEON:Leslie Hubbard MDASSISTANT:RENE MorelosEOPERATIVE DIAGNOSIS:Malpositioned percutaneous dorsal column stimulator leads.POSTOPERATIVE DIAGNOSIS:Malpositioned percutaneous dorsal column stimulator leads.PROCEDURE:Incision and repositioning of dorsal column stimulator percutaneous leadswith fixation to bone.INDICATION:The patient is a 39-year-old female who had a percutaneous permanentstimulator placed by another physician. Early on after the positioning,she felt a significant increase in stimulation in her chest wall anddiminished coverage in the ideal location. X-rays were obtained, whichshowed significant migration of both of the leads. I was contacted tosurgically reposition the leads. Risks, benefits and limitations werediscussed. The patient understood the propensity of the leads to migrate.She wished to proceed with surgical intervention despite the risksincluding infection, the possibility for the need to revise to a paddlelead, etc.DESCRIPTION OF SURGERY:The patient was brought in the operating room. She had received a dose ofvancomycin, according to her weight. She was placed under generalendotracheal anesthesia and flipped prone onto a [place] table. Ipersonally scrubbed the operative site with chlorhexidine and prepped anddraped in standard sterile orthopedic fashion with ChloraPrep solution.After timeout procedure, we proceeded. I took a C-arm image of thepositions of the leads, which was ideal at the T6-T7 disk space. The leadswere up around the T4- 5 region on the left side of the spinal cord. I tookan image also of the site of the suture anchor. I instilled the operativesite with 1% lidocaine and 0.25% Marcaine with epinephrine. I made a sharpincision through the skin to the subcutaneous tissue. Using a Bovie toavoid sharply cutting the leads, I was able to dissect down to the fasciaand identified the suture anchors, which were from the fascia. Itraced the leads down to where they pierced the fascia, grabbed the leadscarefully and withdrew them to their proper location. I placed anotherlead anchor on each lead, secured it with a suture, so there was no slipbetween the anchor and the lead and then I secured the lead anchors to herspinous process with an 0 silk suture. We took final x-rays and the tipsof the leads were just above the T6-T7 disk space with full coverage in theideal location of the lower T7 vertebral body with leads extending into thelower T8 vertebral body. The leads were in the midline. We saved theimages. I irrigated the wound with IrriSept chlorhexidine rinse. Oncethat was completed, I placed some vancomycin powder. I resecured heroriginal anchors to the fascia, so they did not migrate in the future withMRI. I closed the deep tissues with 0 Vicryls, superficial andsubcutaneous tissues with 3-0 Vicryls and 3-0 Monocryl and Prineo dressing. There were no complications. Blood loss was essentially none. Thepatient was transferred to recovery room in stable condition. We did useneurologic monitoring which showed good lower extremity signals throughoutthe case.SHAWN Munroe/ROGER Job #: [id number] DOC #: [id number] Name Value Range Interpretation Code Description Data Malini rce(s) Supporting Document(s) ID Date Data Source [id number] 03/28/2020 12:16:42 PM EDT [address] [id number] Name: JUANITA DRISCOLLDOB: 1980ex: FOrdering Provider: LESLIE Rivera Prov: LESLIE Brooks Provider: Procedure Performed: XR OR THORACIC SPINEExam Date: 03/28/2020 12:09MRN: [id number] Number: [id number] Class: InpatientAccount #: [id number] for Exam: Lumbar spondylosis [M47.816]Other chronic pain [G89.29]Chronic midline low back pain, unspecified whether sciatica present [M54.5, G89.29]Technique: Fluoroscopy with no digital spot images obtained.Comparison: NoneFindings: 6 intraoperative images are obtained during placement of spinal stimulator. Spinal stimulator is present over the lower thoracic spine. The precise localization cannot be made on the submitted images.IMPRESSION: Spinal stimulator placement.Report electronically signed by: MYKEL LIMA On 03/28/2020 12:16 PMWorkstation ID: [id number] Name Value Range Interpretation Code Description Data Malini rce(s) Supporting Document(s) ID Date Data Source [id number] 03/28/2020 11:06:24 AM EDT [facility] INFORMATIONPatient MRN Name Date of Age Gend*PT [id number] Juanita Driscoll 1980 39 years F SDCXPT Location Admission Date/Time Visit ID Attending Provider --- --- --- --- EPI ID CSN Admitting Provider [id number] ---AirwayPatient location during procedure: ORUrgency: electiveDifficult airway: noAdvanced airway equipment used: noStaffingPerformed by: Coleman Blackmon CRNAAnesthesiologist: Fidel Chan MDIndications and Patient ConditionIndications for airway management: anesthesiaPreoxygenated: yesPatient position: sniffingIn-line stabilization: noMask ventilation: 0 - not attemptedFinal Airway/ApproachesFinal airway type: ETTNumber of attempts at final approach: 1Number of other approaches attempted: 0Final Airway DetailsFinal ETT airway: ETT - singleCuffed: yesTechnique used for successful ETT placement: direct laryngoscopyCricoid pressure: noRSI: yesInsertion site: oralBlade type/size: MAC 3.5ETT size: 7.0 mmMeasured from: lipsETT to lips: 20 c mPlacement verified by: chest auscultation and + APNR2Czsuzpnabuoq: equal breath sounds bilateral and CTAGrade view: grade I - full view of glottis Name Value Range Interpretation Code Description Data Malini rce(s) Supporting Document(s) ID Date Data Source [id number] 03/28/2020 08:48:10 AM EDT [facility] Name Value Range Interpretation Code Description Data Malini rce(s) Supporting Document(s) POC NOVA GLU 86 mg/dL (70-99) [facility] [place] PERFORMED BY [facility] CLINICAL STAFF ID Date Data Source [id number] 03/28/2020 08:48:10 AM EDT [facility] Name Value Range Interpretation Code Description Data Malini rce(s) Supporting Document(s) POC NOVA GLU 69 mg/dL (70-99) L [facility] PERFOR[facility] CLINICAL STAFF ID Date Data Source [id number] 03/28/2020 08:48:39 AM EDT [facility] Name Value Range Interpretation Code Description Data Malini rce(s) Supporting Document(s) POC BHCG [facility] <5.0 IU/L [facility] INTERPRETATION:<5.0 NEGATIVE5.0- 25.0 INDETERMINATE>25.0 POSITIVELEVELS BETWEEN 5 AND 25 IU/L MAY INDICATEEARLY AND SHOULD BE REPEATED CHANDA BLOOD SAMPLE AFTER 48 HOURS.PERFORMED BY [facility] CLINICAL STAFF ID Date Data Source [id number] 03/28/2020 07:33:30 AM EDT [facility] NT INFORMATIONPatient MRN Name Date of Age Gend*PT [id number] Juanita Driscoll 1980 39 years F SDCXPT Location Admission Date/Time [facility] --- Leslie Hubbard MD([id number]) EPI ID CSN Admitting Provider [id number] Leslie Hubbard MD([id number])H&P reviewed. The patient was examined and there are no changes to the H&P.Leslie Hubbard MD7:32 AM Name Value Range Interpretation Code Description Data Malini rce(s) Supporting Document(s) ID Date Data Source [id number] 03/26/2020 01:05:35 PM EDT [facility] SPECIMEN DESCRIPTION MIDSTREAM UR INE,CLEAN CATCHCULTURE RESULTS MIXED UROGENITAL CHRISTOPHER; PLEASE SUBMIT A NEW SPEC IMEN IF CLINICALLY INDICATED.REPORT STATUS FINAL 03/26/2020 Name Value Range Interpretation Code Description Data Malini rce(s) Supporting Document(s) ID Date Data Source [id number] 03/25/2020 06:00:23 PM EDT [facility] Name Value Range Interpretation Code Description Data Malini rce(s) Supporting Document(s) COLOR [facility] APPEARANCE [facility] SPEC GRAV URINE 1.016 (1.003-1.030) [facility] PH URINE 6.5 (5.0-7.5) [facility] LEUK ESTERASE (NEG) [facility] NITRITE URINE (NEG) [facility] PROTEIN URINE (NEG) [facility] GLUCOSE URINE (NEG) [facility] KETONE URINE (NEG) [facility] UROBILINOGEN 0.2 mg/dL (0-1.0) [facility] BILIRUBIN URINE (NEG) [facility] BLOOD/HGB URINE (NEG) [facility] ID Date Data Source [id number] 03/25/2020 10:03:46 AM EDT [facility] Name Value Range Interpretation Code Description Data Malini rce(s) Supporting Document(s) EKG [facility] JMWSJr7cRxXCDqVhy4LnZcUwRMPiBW6uaet3D3E3jZNkB7AfbJTjg6ayU0WyD3VaIDIoOMLZHK5OxAHz jb2 [file] p0/sanitation laborer/XgFjyGNT8GDZ1XKcTdlRKs4kFf1DDYePQDckcAYSMhSMZI0QOo0zVXbGItIfltUUUB2ZOTnUB [file] RAYMOND+kxotw/SHbEfUtECXhxMNgQnjgJDwVTgCkLBUrAF WX3BRI6A8eY9H0K7ND4NeQ8x1JN7MceokVOtsawVz2JmD0Y1Z5f2kBw7NEM+36WF4HIe8EoEJzbGZyhx LCweOJPVDqKIS791URWL9t3OyaSdRh77nAXBXU5Llil3VytbM86slw0/xpeOa8XBn1UYoibyygvxzVSI S0vJBuQKLiWNVvp4A0MNwl4gEl7JWMwUT8bmmpVj9T YJf8KoyeEgouhCsqenFv4GGKO0sDTuHtn1zE5k6CbzKGhLV2PZwLKXlkbCOjNN7FjejRHtOPUWTe1gYV QPeDCNRHBO/7heiuNMKoFn6g3E8PQQOwuDzQn0voGaVTzKWKH6DXMHSCbdhADzVKxPjzujImgSZ4ZWJP 25CUDvIseOzZPy2B784tG1U+business systems lead/qk4hjDibZ18rG1 [file] Ap9OPQodt5oE4DWBhjMt7IpndE5ZZ2WgA/sales representative supervisor+1iAo6HpCawEb5kMZ8BTbtOukMucKXNpbLBh8O0V192 8LTUlr4pLXld279m870s296v116w174n034p1AQoZzcV8xvt2FYScQiGcuuNT1yHCDfIVFwVnBUDXG9D l5iS4fobgqOvC2ZtmPqnxb67O8869YWJydrmorMZ9U ZRC3M3tqKGu1cJZb+zGd53ERkUWx5UGnAVbcIVPx30BGnLlxV4U2cILY6M0pdpsdzZOQTi40HoLfOnI1 tN6nhM1jTH58gM1Ay7vcDHMEWajU0R3jO2L9Z4uCt3tmI6dRCTPWVHnuCVhKwP4opPBAU7ibaQuMFA1B A5Mm5B6dsIKuTy/FTTNuSBFJh1tYOKbfPljdMFOWbl QsdiyTTskHIOMc3Y2qNDlKuX6VRnzZHSYQPyJBIZohWd21JMUPUODGAV451AG62ZHz+kToHADOoUrvuJ lltnFyZIfHrrpV4pJpTAcMZX+RgHxhHK0KrK3iO7qetEEqCB1tMYeegY8bPK46MpdZvKDcHCQpqak0yV Y0GrCTtzsaEkq1kQvYNW2gTR2KfBDQm9EEuBfEAHHo fwYjVBUFHTB9cuBwRHhWCJzUMCWo2TdwEO4NW0iqsYPznXvxGbIUNb6MkUlZYmthpEEcbQx3IyNTnPrg cRCSYjM8mEKPYp0r6asrRPoWeDgtpEV8FzV7GvBTLQE7Auc9qDsAQOys5YitZeBhODXwtWZ2xe5TZqWc pIQXCfgNjRPnfsF0Pqhpzyw/zohWAK2EWJyZNN1HC0 kMX0RECFCbEWexTtxWFyKSpTE0MGAZC9kEtTiyoiSM5DEEuSGuRaVsjaRCetCDciR3wASqjD1S7JLkNh Davey+UpC4OTgveOtpnZ4bbsPgnRPcddVTYjFi46rW7BABraM1LLFeJCexqvNlusI7G1Y/JpELJzsxi75L [file] P6rfXrNxO5VXPyZkZvIR9X ID Date Data Source [id number] 03/25/2020 09:20:00 AM EDT [facility] Name Value Range Interpretation Code Description Data Malini rce(s) Supporting Document(s) SARS coronavirus 2 RNA [Presence] in Res piratory specimen by JAMAIR with probe detection [facility] This lab was reported by [facility]. ID Date Data Source [id number] 03/25/2020 01:45:23 PM EDT [facility] Name Value Range Interpretation Code Description Data Malini rce(s) Supporting Document(s) SPECIMEN DESCRIPTION [facility] COVID19 RESULT (NDET) [facility] THIS ASSAY AMPLIFIES AND DETECTSTHE TARG ET RNA USING REAL-TIME PCR.NEGATIVE 2019_NCOV RT-PCR RESULTS DONOT PRECLUDE 2019_NCOV INFECTION ANDSHOULD NOT BE USED THE SOLE BASISFOR PATIENT MANAGEMENT DECISIONS. COMMENT [facility] UNDER AN EMERGENCY USE AUTHORIZATION(EUA ) FOR THE DETECTION AND/OR DIAGNOSISOF THE VIRUS THAT CAUSES COVID-19.EMAILED TO [facility] AT [id number] ON [id number] [place] [id number]. ID Date Data Source [id number] 03/25/2020 09:15:05 AM EDT [facility] INFORMATIONPatient MRN Name Date of Age Gend*PT [id number] Juanita Driscoll 1980 39 years F OPPT Location Admission Date/Time Visit ID Attending Provider --- --- --- Leslie Hubbard MD([id number]) EPI ID CSN Admitting Provider [id number] ---OUTPATIENT / OBSERVATIONAL SURGICAL OR INVASIVE PROCEDUREName: Juanita Driscoll : 1980 Sex: female Care Provider: PCP PROVIDER REQUESTEDAttending Physician: Dr. HubbardHISTORY OF PRESENT ILLNESS: Ms Hernandez is a 39 years old white female with along standing history of lower back pain s/p spinal cord stimulator insertion 2018. Patient states that she continued to have right hip pain.Diagnostic imaging revealed lead migration. Patient denies any bowel or bladderdysfunction. Subsequently patient was referred to Dr. Hubbard for furtherevaluation. Options were discussed. Patient is now scheduled to undergosurgical intervention.PAST MEDICAL HISTORY:Past Medical History:Diagnosis Date Asthma Chronic midline low back pain Lumbar spondylolysis PONV (postoperative nausea and vomiting) RBBBPAST SURGICAL HISTORY:Past Surgical History:Procedure Laterality Date SECTION 2006 2012 DILATION AND CURETTAGE OF UTERUS SPINAL CORD STIMULATOR IMPLANT 09/2019 TONSILLECTOMYALLERGIES:AllergiesAllergen Reactions Morphine And Related Shortness Of Breath and Nausea And Vomiting Penicillins Anaphylaxis Childhood Reaction Sulfa Antibiotics Hives, Shortness Of Breath and Facial Swelling Oxycodone Other (See Comments) Ulcers on TongueMEDICATIONS:Prior to Admission medicationsMedication Sig Start Date End Date Taking? Authorizing Providerascorbic acid (VITAMIN C) 500 MG tablet Take 1,000 mg by mouth dailyHistorical Provider, MDDAILY NOY (THERAGRAN) per tablet Take 1 tablet by mouth daily HistoricalProvider, MDgabapentin (NEURONTIN) 100 MG capsule Take 100 mg by mouth nightlyHistorical Provider, gabapentin (NEURONTIN) 300 MG capsule Take 300 mg by mouth 2 (two) times a day(morning and noon) Historical Provider, JEFFERSONcodone-acetaminophen (NORCO 10-325) 10-325 MG per tablet Take 1 tablet bymouth 3 (three) times a day as needed for pain Historical Provider, JTocial HistoryTobacco Use Smoking status: Former Smoker Packs/day: 0.25 Years: 0.50 Pack years: 0.12 Types: Cigarettes Smokeless tobacco: Never UsedSubstance Use Topics Alcohol use: Never Frequency: Never Drug use: NeverFamily HistoryProblem Relation Age of Onset Diabetes Maternal Grandmother Diabetes Maternal Grandfather Cancer Maternal Grandfather Kidney disease Paternal Grandmother COPD Paternal Grandfather Cervical cancer Mother Malig Hyperthermia Neg HxREVIEW OF SYSTEMS:Respiratory: Denies any shortness of breath, cough, yellow sputum production orwheezing.Cardiovascular: Denies any chest pain, pressure or tightness. Denies anyparoxysmal nocturnal dyspnea or orthopnea.GI: Denies nausea, vomiting, diarrhea, constipation or melena.Neurologic: Denies any numbness, tingling, tremors or syncope.Vascular: Denies any edema. Denies claudication.PHYSICAL EXAM:GENERAL: She is a 39 years old, pleasant white female, in no acute distress attime of examination. Vitals on arrival to the office are BP 152/76 (BP Location:Right upper arm, Patient Position: Sitting) | Pulse 92 | Ht 1.575 m (5' 2") |Wt 95.7 kg (210 lb 15.7 oz) | SpO2 97% | BMI 38.59 kg/m Body mass index is38.59 kg/m ..Skin is pink, warm, and dry.NECK: She has a grade I airway. Neck is supple, midline, without cervicaladenopathy. No thyromegaly. No carotid bruits.MENTAL / NEUROLOGICAL STATUS: HQNk1TABMW: Clear to auscultation. No wheezes, rhonchi or crackles.HEART: Rate rhythm regular. S1, S2. No murmur, rub or gallop.ABDOMEN: Bowel sounds positive times four. Soft, non tender. No reboundtenderness. No hepatosplenomegaly. Negative CVAT.EXTREMITIES: Pulses are symmetrical. NO edema. Spinal cord stimulator batteryintact in right thoracic region.Anesthesia complications: PONVCSHA Frailty Scale :: 3/10 Managing Well (medical problems are well controlled,but are not regularly active beyond routine walking).Stop Bang Questionnaire - Total Score:STOP-Bang Total Score: 1ASSESSMENT: Primary Diagnosis/Indication: Lumbar spondylosis, other chronicpain, chronic midline low back pain..PLAN: Procedure: Ms. Driscoll is a 39-year-old female with recent history ofspinal cord stimulator insertion. She now has lead migration. Patient is nowscheduled to undergo NEUROSTIMULATOR, SPINAL, LEAD REVISION. POSSIBLERE-IMPLANTATION OF PADDLE LEAD. NEUROMONITORING on 03/28/2020.03/25/2020 9:14 Natali Landrum document or parts of this document, were dictated using [employer] speaking software. A reasonable attempt at proofreading has beenmade to minimize errors. Please call with any questions or corrections.* Name Value Range Interpretation Code Description Data Malini rce(s) Supporting Document(s) ID Date Data Source [id number] 03/25/2020 06:19:08 PM EDT [facility] SPEC EXP DATE 03/29/2020PATI ENT ABO/Rh A POSITIVEANTIBODY SCREEN NEGATIVETESTING SITE PERFORMED AT [address] [place] [address] Name Value Range Interpretation Code Description Data Malini rce(s) Supporting Document(s) TYPE AND SCREEN [facility] ID Date Data Source [id number] 03/25/2020 01:00:24 PM EDT [facility] Name Value Range Interpretation Code Description Data Malini rce(s) Supporting Document(s) APTT 26.3 s (22.0-34.3) [facility] ID Date Data Source [id number] 03/25/2020 01:00:24 PM EDT [facility] Name Value Range Interpretation Code Description Data Malini rce(s) Supporting Document(s) PT 10.0 s (9.2-11.9) [facility] INR 0.96 [facility] SUGGESTED THERAPEUTIC RANGES USING INR F ORSTABILIZED ANTICOAGULATED PATIENTS:STANDARD DOSE THERAPY INR 2.0-3.0 DVT, PE, PREVENT DVT OR EMBOLISMHIGH DOSE THERAPY INR 2.5-3.5 PREVENT EMBOLISM FROM MECHANICAL HEART VALVE ID Date Data Source [id number] 03/25/2020 12:59:59 PM EDT [facility] Name Value Range Interpretation Code Description Data Malini rce(s) Supporting Document(s) SODIUM 140 mmol/L (136-145) [facility] POTASSIUM 4.5 mmol/L (3.6-5.2) [facility] CHLORIDE 105 mmol/L (100-108) [facility] CO2 29 mmol/L (22-31) [facility] ANION GAP 6 mmol/L (7-16) L [facility] UREA NITROGEN 16 mg/dL (7-24) [facility] CREATININE 0.71 mg/dL (0.60-1.00) [facility] BUN/CREAT RATIO 22.5 RATIO (10.0-20.0) H [facility] GLUCOSE 93 mg/dL (70-99) [facility] CALCIUM 8.8 mg/dL (8.4-10.2) [facility] TOTAL PROTEIN 7.2 g/dL (6.4-8.2) [facility] ALBUMIN 3.8 g/dL (3.5-4.6) [facility] GLOBULIN 3.4 g/dL (2.7-4.3) [facility] ALB/GLOB RATIO 1.1 RATIO [facility] ALKALINE PHOSPHATASE 59 U/L (45-117) [facility] BILIRUBIN,TOTAL 0.4 mg/dL (0.0-1.0) [facility] PLEASE NOTE:Total bilirubin results may be falselyelevated in patients taking Eltrombopag. AST (SGOT) 19 U/L (11-39) [facility] ALT (SGPT) 24 U/L (12-78) [facility] GFR >60 ml/min/1.73m2 (>59) [facility] GFR ( AMER) >60 ml/min/1.73m2 (>59) [facility] GFR INTERPRETATION [facility] --NORMAL KIDNEY FUNCTION OR MILD DISEASE - GFR >OR= 60CHRONIC KIDNEY DISEASE - GFR 15 - 59RENAL FAILURE - GFR <15 Est. GFR calculation based on the MDRDstudy equation, which assumes a steadystate for creatinine. Est. GFR should notbe used for medication dosing. ID Date Data Source [id number] 03/25/2020 12:53:42 PM EDT [facility] Name Value Range Interpretation Code Description Data Malini rce(s) Supporting Document(s) HEMOGLOBIN A1C @ 5.2 % (4.0-6.0) [facility] Performed using Siemens [place] immunoassa y.Care must be taken when interpreting FnH8tropjfrz in patients with a hemoglobin variantor decreased erythrocyte lifespan. Values 5.7 - 6.4% suggest prediabetes.Values >=6.5% are diagnostic for diabetes.REFERENCE: DIABETES CARE 2018: 41(S13-S27). EST AVERAGE GLUCOSE 103 mg/dL [facility] ID Date Data Source [id number] 03/25/2020 12:25:24 PM EDT [facility] Name Value Range Interpretation Code Description Data Malini rce(s) Supporting Document(s) WBC 6.0 10*3/uL (4.1-11.0) [facility] RBC 4.51 10*6/uL (4.00-5.40) [facility] HGB 13.8 g/dL (12.0-16.0) [facility] HCT 41.6 % (36.0-47.0) [facility] MCV 92.3 fL (80.0-95.0) [facility] MCH 30.5 pg (27.0-32.0) [facility] MCHC 33.1 g/dL (32.0-36.0) [facility] RDW 13.6 % (10.5-14.5) [facility] PLT 345 10*3/uL (150-450) Lab [facility] TYLER Burks MPV 8.6 fL (7.1-10.7) [facility] ID Date Data Source [id number] 03/26/2020 01:35:00 PM EDT [facility] Name Value Range Interpretation Code Description Data Malini rce(s) Supporting Document(s) SPECIMEN DESCRIPTION [facility] STAPH SCREEN RESULTS (ONEGSA) [facility] COMMENT [facility] GENE TO DETECT STAPH AUREUS. (2) RT-P CR WAS PERFORMED FOR THE mecA AND SCCmec GENES TO DETECT METHICILLIN RESISTANCE IN STAPH AUREUS. ID Date Data Source CHLAMYDIA & GC DNA AMPLIFICAT 11/15/2019 12:00:00 AM EST eCW 1 (Count Includes [facility]) Name Value Range Interpretation Code Description Data Malini rce(s) Supporting Document(s) Chlamydia trachomatis rRNA [Presence] in Unspecified specimen by Probe and target amplification method NEGATIVE NEGATIVE CHLAMYDIA DNA AMPLIFICATION eCW1 (Count Includes [facility]) Procedure Social History Code Duration Value Status Description Data Source(s ) Smoking 09/26/2020 12:00:00 AM EST Former Smoker completed Former Smoker eCW1 (Count Includes [facility]) Smoking 09/26/2020 12:00:00 AM EST Former Smoker completed Former Smoker eCW1 (Count Includes [facility]) Smoking 09/26/2020 12:00:00 AM EST Former Smoker completed Former Smoker eCW1 (Count Includes [facility]) Smoking 09/26/2020 12:00:00 AM EST Former Smoker completed Former Smoker eCW1 (Count Includes [facility]) Smoking 09/26/2020 12:00:00 AM EST Former Smoker completed Former Smoker eCW1 (Count Includes [facility]) Smoking 09/12/2020 12:00:00 AM EST Former Smoker completed Former Smoker eCW1 (Count Includes [facility]) Smoking 09/12/2020 12:00:00 AM EST Former Smoker completed Former Smoker eCW1 (Count Includes [facility]) Smoking 05/24/2020 12:00:00 AM EDT Former Smoker completed Former Smoker eCW1 (Count Includes [facility]) Smoking 05/24/2020 12:00:00 AM EDT Former Smoker completed Former Smoker eCW1 (Count Includes [facility]) Smoking 05/24/2020 12:00:00 AM EDT Former Smoker completed Former Smoker eCW1 (Count Includes [facility]) Smoking 05/24/2020 12:00:00 AM EDT Former Smoker completed Former Smoker eCW1 (Count Includes [facility]) Smoking 05/24/2020 12:00:00 AM EDT Former Smoker completed Former Smoker eCW1 (Count Includes [facility]) Smoking 05/24/2020 12:00:00 AM EDT Former Smoker completed Former Smoker eCW1 (Count Includes [facility]) Smoking 05/24/2020 12:00:00 AM EDT Former Smoker completed Former Smoker eCW1 (Count Includes [facility]) Smoking 05/24/2020 12:00:00 AM EDT Former Smoker completed Former Smoker eCW1 (Count Includes [facility]) Smoking 04/26/2020 12:00:00 AM EDT Former Smoker completed Former Smoker eCW1 (Count Includes [facility]) Smoking 04/26/2020 12:00:00 AM EDT Former Smoker completed Former Smoker eCW1 (Count Includes [facility]) Alcohol intake 03/28/2020 12:00:00 AM EDT Never completed [facility] Cigarette pack-years 03/28/2020 12:00:00 AM EDT UNK completed [facility] Cigarettes smoked current (pack per day) - Reported 03/28/20 12:00:00 AM EDT UNK completed [facility] Smoking 03/28/2020 12:00:00 AM EDT Former smoker completed Former smoker [facility] Alcohol intake 03/25/2020 12:00:00 AM EDT Never completed [facility] Cigarette pack-years 03/25/2020 12:00:00 AM EDT UNK completed [facility] Cigarettes smoked current (pack per day) - Reported 03/25/20 12:00:00 AM EDT UNK completed [facility] Smoking 03/25/2020 12:00:00 AM EDT Former smoker completed Former smoker [facility] Vital Signs ID Date Data Source UNK Name Value Range Interpretation Code Description Data Source(s) Body surface area Derived from formula 2.03 m2 2.03 m2 [facility] ([facility]) Body weight 102.060 kg 102.060 kg [facility] ([facility]) [place] body weight 115 [lb_av] 115 [lb_av] MEDEN T ([facility]) Body mass index (BMI) [Ratio] 39.9 kg/m2 39.9 k g/m2 [facility] ([facility]) Body weight 225.00 [lb_av] 225.00 [[facility]_av[facility] Body height 63 [in_i] 63 [in_i] [facility] ([facility]) 5'3" Diastolic blood pressure 94 mm[Hg] 94 mm[Hg] [facility] ([facility]) Systolic blood pressure 152 mm[Hg] 152 mm[Hg] [facility] Diastolic blood pressure 72 mm[Hg] 72 mm[Hg] eCW1 (Count Includes [facility]) Systolic blood pressure 138 mm[Hg] 138 mm[Hg] e CW1 (Count Includes [facility]) Body temperature 97.7 [degF] 97.7 [degF] eCW1 ( Count Includes [facility]) Respiratory rate 18 /min 18 /min W1 ([facility]) Heart rate 87 /min 87 /min eCW1 ([facility]) Body mass index (BMI) [Ratio] 40.49 kg/m2 40.49 kg/m2 W1 (Count Includes [facility]) Body height [in_i] eCW1 ([facility]) Body weight 228.6 [lb_av] 228.6 [lb_av] eCW1 ([facility]) Diastolic blood pressure 84 mm[Hg] 84 mm[Hg] eCW1 ([facility]) Systolic blood pressure 122 mm[Hg] 122 mm[Hg] e CW1 ([facility]cludes [facility]) Body temperature 97.6 [degF] 97.6 [degF] eCW1 ( [facility] Includes [facility]) Respiratory rate 18 /min 18 /min eCW1 ([facility]) Heart rate 107 /min 107 /min eCW1 ([facility]) Body mass index (BMI) [Ratio] 39.50 kg/m2 39.50 kg/m2 eCW1 ([facility]cludes [facility]) Body height [in_i] eCW1 ([facility]) Body weight 223 [lb_av] 223 [lb_av] eCW1 ([facility]) Oxygen saturation in Arterial blood by Pulse oximetry 97 % 97 % MEDENT ([facility]) Body mass index (BMI) [Ratio] 39.7 kg/m2 39.7 k g/m2 MEDENT ([facility]) Body weight 225.50 [lb_av] 225.50 [lb_av] MEDEN T ([facility]) Body height 63.2 [in_i] 63.2 [in_i] MEDENT ([facility]) 5'3.20" Heart rate 87 /min 87 /min MEDENT ([facility]) Diastolic blood pressure 84 mm[Hg] 84 mm[Hg] MEDENT ([facility]) Systolic blood pressure 126 mm[Hg] 126 mm[Hg] M EDENT ([facility]) Diastolic blood pressure 75 mm[Hg] 75 mm[Hg] eCW1 ([facility]) Systolic blood pressure 160 mm[Hg] 160 mm[Hg] e CW1 ([facility]) Body temperature 97.6 [degF] 97.6 [degF] eCW1 ( [facility]) Respiratory rate 18 /min 18 /min eCW1 ([facility]) Heart rate 80 /min 80 /min eCW1 ([facility]) Body mass index (BMI) [Ratio] 38.08 kg/m2 38.08 kg/m2 eCW1 ([facility]) Body height [in_i] eCW1 ([facility]) Body weight 215 [lb_av] 215 [lb_av] eCW1 ([facility]) Diastolic blood pressure 82 mm[Hg] 82 mm[Hg] eCW1 ([facility]) Systolic blood pressure 142 mm[Hg] 142 mm[Hg] e CW1 ([facility]) Body temperature 98.3 [degF] 98.3 [degF] eCW1 ( [facility]) Respiratory rate 16 /min 16 /min eCW1 ([facility]) Heart rate 86 /min 86 /min eCW1 ([facility]) Body mass index (BMI) [Ratio] 39.32 kg/m2 39.32 kg/m2 eCW1 ([facility]) Body height [in_i] eCW1 ([facility]) Body weight 222 [lb_av] 222 [lb_av] eCW1 ([facility]) Oxygen saturation in Arterial blood by Pulse oximetry 98 % 98 % [facility] Respiratory rate 16 /min 16 /min [facility] Body temperature 36.44 Denise 36.44 Denise [facility] Heart rate 86 /min 86 /min [facility] Diastolic blood pressure 74 mm[Hg] 74 mm[Hg] [facility] Systolic blood pressure 119 mm[Hg] 119 mm[Hg] [facility] Body mass index (BMI) [Ratio] 38.41 kg/m2 38.41 kg/m2 [facility] Body weight 95.255 kg 95.255 kg [facility] Body height 157.5 cm 157.5 cm [facility] Oxygen saturation in Arterial blood by Pulse oximetry 97 % 97 % [facility] Body mass index (BMI) [Ratio] 38.59 kg/m2 38.59 kg/m2 [facility] Body weight 95.7 kg 95.7 kg [facility] Body height 157.5 cm 157.5 cm [facility] Heart rate 92 /min 92 /min [facility] Diastolic blood pressure 76 mm[Hg] 76 mm[Hg] [facility] Systolic blood pressure 152 mm[Hg] 152 mm[Hg] [facility] Diastolic blood pressure 80 mm[Hg] 80 mm[Hg] eCW1 ([facility]) Systolic blood pressure 120 mm[Hg] 120 mm[Hg] e CW1 ([facility]) Body temperature 97.9 [degF] 97.9 [degF] eCW1 ( [facility]) Respiratory rate 18 /min 18 /min eCW1 ([facility]) Heart rate 88 /min 88 /min eCW1 ([facility]) Body mass index (BMI) [Ratio] 36.66 kg/m2 36.66 kg/m2 eCW1 ([facility]) Body height [in_us] eCW1 ([facility]) Body weight Measured 207 [lb_av] 207 [lb_av] eC W1 ([facility]) Diastolic blood pressure 86 mm[Hg] 86 mm[Hg] eCW1 ([facility]) Systolic blood pressure 154 mm[Hg] 154 mm[Hg] e CW1 ([facility]) Body temperature 98.6 [degF] 98.6 [degF] eCW1 ( [facility]) Respiratory rate 18 /min 18 /min eCW1 ([facility]) Heart rate 84 /min 84 /min eCW1 ([facility]) Body mass index (BMI) [Ratio] 35.57 kg/m2 35.57 kg/m2 eCW1 ([facility]) Body height [in_us] eCW1 ([facility]) Body weight Measured 200.8 [lb_av] 200.8 [lb_av ] eCW1 ([facility]) Diastolic blood pressure 74 mm[Hg] 74 mm[Hg] eCW1 ([facility]) Systolic blood pressure 183 mm[Hg] 183 mm[Hg] e CW1 ([facility]) Body temperature 98.8 [degF] 98.8 [degF] eCW1 ( [facility]) Respiratory rate 18 /min 18 /min eCW1 ([facility]) Heart rate 84 /min 84 /min eCW1 ([facility]) Body mass index (BMI) [Ratio] 34.54 kg/m2 34.54 kg/m2 eCW1 ([facility]) Body height [in_us] eCW1 ([facility]) Body weight Measured 195 [lb_av] 195 [lb_av] eC W1 ([facility]) Diastolic blood pressure 72 mm[Hg] 72 mm[Hg] eCW1 ([facility]) Systolic blood pressure 156 mm[Hg] 156 mm[Hg] e CW1 ([facility]) Body temperature 97.4 [degF] 97.4 [degF] eCW1 ( [facility]) Respiratory rate 18 /min 18 /min eCW1 ([facility]) Heart rate 89 /min 89 /min eCW1 ([facility]) Body mass index (BMI) [Ratio] 34.15 kg/m2 34.15 kg/m2 eCW1 ([facility]) Body height [in_us] eCW1 ([facility]) Body weight Measured 192.8 [lb_av] 192.8 [lb_av ] eCW1 ([facility]) Diastolic blood pressure 89 mm[Hg] 89 mm[Hg] eCW1 ([facility]) Systolic blood pressure 147 mm[Hg] 147 mm[Hg] e CW1 ([facility]) Respiratory rate 18 /min 18 /min eCW1 ([facility]) Heart rate 83 /min 83 /min eCW1 ([facility]) Body mass index (BMI) [Ratio] 33.65 kg/m2 33.65 kg/m2 eCW1 ([facility]) Body height [in_us] eCW1 ([facility]) Body weight Measured 190 [lb_av] 190 [lb_av] eC W1 ([facility]) Diastolic blood pressure 74 mm[Hg] 74 mm[Hg] eCW1 ([facility]) Systolic blood pressure 147 mm[Hg] 147 mm[Hg] e CW1 ([facility]) Body temperature 98 [degF] 98 [degF] eCW1 ([facility]) Respiratory rate 16 /min 16 /min eCW1 ([facility]) Heart rate 87 /min 87 /min eCW1 ([facility]) Body mass index (BMI) [Ratio] 34.65 kg/m2 34.65 kg/m2 eCW1 ([facility]) Body height [in_us] eCW1 ([facility]) Body weight Measured 195.6 [lb_av] 195.6 [lb_av ] eCW1 ([facility]) Diastolic blood pressure 70 mm[Hg] 70 mm[Hg] eCW1 ([facility]) Systolic blood pressure 120 mm[Hg] 120 mm[Hg] e CW1 ([facility]) Body temperature 98.3 [degF] 98.3 [degF] eCW1 ( [facility]) Respiratory rate 18 /min 18 /min eCW1 ([facility]) Heart rate 99 /min 99 /min eCW1 ([facility]) Body mass index (BMI) [Ratio] 33.83 kg/m2 33.83 kg/m2 eCW1 ([facility]) Body height [in_us] eCW1 ([facility]) Body weight Measured 191 [lb_av] 191 [lb_av] eC W1 ([facility]cludes [facility]) Diastolic blood pressure 74 mm[Hg] 74 mm[Hg] eCW1 ([facility]) Systolic blood pressure 151 mm[Hg] 151 mm[Hg] e CW1 ([facility]cludes [facility]) Body temperature 97.8 [degF] 97.8 [degF] eCW1 ( [facility]) Respiratory rate 16 /min 16 /min eCW1 ([facility]) Heart rate 75 /min 75 /min eCW1 ([facility]) Body mass index (BMI) [Ratio] 34.04 kg/m2 34.04 kg/m2 eCW1 ([facility]cludes [facility]) Body height [in_us] eCW1 ([facility]) Body weight Measured 192.2 [lb_av] 192.2 [lb_av ] eCW1 ([facility]cludes [facility]) Diastolic blood pressure 73 mm[Hg] 73 mm[Hg] eCW1 ([facility]cludes [facility]) Systolic blood pressure 134 mm[Hg] 134 mm[Hg] e CW1 ([facility]cludes [facility]) Body temperature 97.8 [degF] 97.8 [degF] eCW1 ( [facility]) Respiratory rate 16 /min 16 /min eCW1 ([facility]) Heart rate 86 /min 86 /min eCW1 ([facility]) Body mass index (BMI) [Ratio] 33.37 kg/m2 33.37 kg/m2 eCW1 ([facility]cludes [facility]) Body height [in_us] eCW1 ([facility]) Body weight Measured 188.4 [lb_av] 188.4 [lb_av ] eCW1 ([facility]cludes [facility]) Patient Treatment Plan of Care Planned Activity Planned Date Details Description Data Source (s) Acetaminophen 325 MG / Hydrocodone Bitartrate 10 MG Or al Tablet [[place]] 10/22/2020 12:00:00 AM EST eCW1 ([facility]) Acetaminophen 325 MG / Hydrocodone Bitartrate 10 MG Or al Tablet [[place]] 10/22/2020 12:00:00 AM EST eCW1 ([facility]) Acetaminophen 325 MG / Hydrocodone Bitartrate 10 MG Or al Tablet [[place]] 09/06/2020 12:00:00 AM EDT eCW1 ([facility]) Acetaminophen 325 MG / Hydrocodone Bitartrate 10 MG Or al Tablet [[place]] 05/17/2020 12:00:00 AM EDT eCW1 ([facility]) Acetaminophen 325 MG / Hydrocodone Bitartrate 10 MG Or al Tablet [[place]] 05/17/2020 12:00:00 AM EDT eCW1 ([facility]) Acetaminophen 325 MG / Hydrocodone Bitartrate 10 MG Or al Tablet [[place]] 05/17/2020 12:00:00 AM EDT eCW1 ([facility]) Acetaminophen 325 MG / Hydrocodone Bitartrate 10 MG Or al Tablet [[place]] 05/17/2020 12:00:00 AM EDT eCW1 ([facility]) Acetaminophen 325 MG / Hydrocodone Bitartrate 10 MG Or al Tablet [[place]] 05/17/2020 12:00:00 AM EDT eCW1 ([facility]) Acetaminophen 325 MG / Hydrocodone Bitartrate 10 MG Or al Tablet [[place]] 05/17/2020 12:00:00 AM EDT eCW1 ([facility]) Acetaminophen 325 MG / Hydrocodone Bitartrate 10 MG Or al Tablet [[place]] 05/17/2020 12:00:00 AM EDT eCW1 ([facility]) Acetaminophen 325 MG / Hydrocodone Bitartrate 10 MG Or al Tablet 03/29/2020 12:00:00 AM EDT [facility] Acetaminophen 325 MG / Hydrocodone Bitartrate 10 MG Or al Tablet [[place]] 03/27/2020 12:00:00 AM EDT eCW1 ([facility]) gabapentin 300 MG Oral Capsule 02/23/2020 12:00:00 AM EDT eCW1 ([facility]cludes [facility]) gabapentin 300 MG Oral Capsule 02/23/2020 12:00:00 AM EDT eCW1 ([facility] Includes [facility]) gabapentin 300 MG Oral Capsule 02/23/2020 12:00:00 AM EDT eCW1 ([facility] Includes [facility]) gabapentin 300 MG Oral Capsule 02/23/2020 12:00:00 AM EDT eCW1 ([facility] Includes [facility]) gabapentin 300 MG Oral Capsule 02/23/2020 12:00:00 AM EDT eCW1 ([facility] Includes [facility]) Acetaminophen 325 MG / Hydrocodone Bitartrate 10 MG Or al Tablet [[place]] 02/23/2020 12:00:00 AM EDT eCW1 ([facility]) gabapentin 300 MG Oral Capsule 02/23/2020 12:00:00 AM EDT eCW1 ([facility]cludes [facility]) gabapentin 300 MG Oral Capsule 02/23/2020 12:00:00 AM EDT eCW1 ([facility]cludes [facility]) Alprazolam 0.5 MG Oral Tablet [Xanax] 02/23/2020 12:00:00 AM EDT eCW1 ([facility]cludes [facility]) gabapentin 300 MG Oral Capsule 02/23/2020 12:00:00 AM EDT eCW1 ([facility] Includes [facility]) gabapentin 300 MG Oral Capsule 02/23/2020 12:00:00 AM EDT eCW1 ([facility] Includes [facility]) gabapentin 300 MG Oral Capsule 02/23/2020 12:00:00 AM EDT eCW1 ([facility] Includes [facility]) Acetaminophen 325 MG / Hydrocodone Bitartrate 10 MG Or al Tablet [[place]] 02/23/2020 12:00:00 AM EDT eCW1 ([facility]) Acetaminophen 325 MG / Hydrocodone Bitartrate 10 MG Or al Tablet [[place]] 01/29/2020 12:00:00 AM EDT eCW1 ([facility]) Acetaminophen 325 MG / Hydrocodone Bitartrate 10 MG Or al Tablet [[place]] 01/02/2020 12:00:00 AM EST eCW1 ([facility]) Acetaminophen 325 MG / Hydrocodone Bitartrate 10 MG Or al Tablet [[place]] 12/05/2019 12:00:00 AM EST eCW1 ([facility]) gabapentin 100 MG Oral Capsule 11/20/2019 12:00:00 AM EST eCW1 ([facility]cludes [facility]) gabapentin 100 MG Oral Capsule 11/20/2019 12:00:00 AM EST eCW1 ([facility] Includes [facility]) gabapentin 100 MG Oral Capsule 11/20/2019 12:00:00 AM EST eCW1 ([facility] Includes [facility]) Gabapentin 100 MG 11/20/2019 12:00:00 AM EST eCW1 ([facility] Includes [facility]) Acetaminophen 325 MG / Hydrocodone Bitartrate 5 MG Ora l Tablet [[place]] 10/23/2019 12:00:00 AM EST eCW1 ([facility]) Acetaminophen 325 MG / Hydrocodone Bitartrate 5 MG Ora l Tablet [[place]] 10/23/2019 12:00:00 AM EST eCW1 ([facility]) Acetaminophen 325 MG / Hydrocodone Bitartrate 5 MG Ora l Tablet [[place]] 09/29/2019 12:00:00 AM EST eCW1 ([facility]) Oxycodone Hydrochloride 5 MG Oral Tablet 09/26/2019 12:00:00 AM EST eCW1 ([facility]cludes [facility]) Ascorbic Acid 500 MG Oral Tablet [facility]
--- NOTE | 2020-11-21 08:52 | ROOR ---
Patient Name: Shelbi Dunham Procedure Date: 11/21/2020 8:29 AM Date of : 1980 Age: 40 Room: [facility] Gender: Female Note Status: Finalized Procedure: Colonoscopy Indications: Rectal bleeding, Diarrhea Providers: Jhonatan Silva Jr, MD Referring MD: Chi Le Do, [facility] Requesting Provider: Medicines: Propofol per Anesthesia Complications: No immediate complications. Procedure: Pre-Anesthesia Assessment: - Prior to the procedure, a History and Physical was performed, and patient medications and allergies were reviewed. The patient is competent. The risks and benefits of the procedure and the sedation options and risks were discussed with the patient. All questions were answered and informed consent was obtained. Patient identification and proposed procedure were verified by the physician and the nurse in the pre-procedure area and in the procedure room. Mental Status Examination: alert and oriented. Airway Examination: normal oropharyngeal airway and neck mobility. Respiratory Examination: clear to auscultation. CV Examination: normal. ASA Grade Assessment: II - A patient with mild systemic disease. After reviewing the risks and benefits, the patient was deemed in satisfactory condition to undergo the procedure. The anesthesia plan was to use moderate sedation / analgesia (conscious sedation). Immediately prior to administration of medications, the patient was re-assessed for adequacy to receive sedatives. The heart rate, respiratory rate, oxygen saturations, blood pressure, adequacy of pulmonary ventilation, and response to care were monitored throughout the procedure. The physical status of the patient was re-assessed after the procedure. The Colonoscope was introduced through the anus and advanced to the cecum, identified by appendiceal orifice and ileocecal valve. The colonoscopy was performed without difficulty. The patient tolerated the procedure well. The quality of the bowel preparation was adequate. Findings: The rectum, recto-sigmoid colon, sigmoid colon, descending colon, transverse colon, ascending colon, cecum, appendiceal orifice and ileocecal valve appeared normal. Biopsies for histology were taken with a cold forceps from the cecum, ascending colon, transverse colon, descending colon and sigmoid colon for evaluation of microscopic colitis. Impression: - The rectum, recto-sigmoid colon, sigmoid colon, descending colon, transverse colon, ascending colon, cecum, appendiceal orifice and ileocecal valve are normal. Biopsied. Recommendation: - Discharge patient to home (ambulatory). - Repeat colonoscopy in 10 years for screening purposes. Procedure Code(s): --- Professional --- 48013, Colonoscopy, flexible; with biopsy, single or multiple Diagnosis Code(s): --- Professional --- K62.5, Hemorrhage of anus and rectum R19.7, Diarrhea, unspecified CPT copyright 2019 [employer]. All rights reserved. The codes documented in this report are preliminary and upon telegraph editor review may be revised to meet current compliance requirements. Jhonatan Silva MD Jhonatan Silva Jr, MD 11/21/2020 8:51:44 AM Electronically signed by Jhonatan Silva Jr, MD Number of Addenda: 0 Note Initiated On: 11/21/2020 8:29 AM Estimated Blood Loss: Estimated blood loss: none.
[2020-11-21 09:15] VITALS: BP 136/83
== END 2020-11-21 09:35 | disposition home or self-care (01) ==
LOC: M OPP 07:55
PROVIDERS: ATTEND Surgery
DX: K62.5 Hemorrhage of anus and rectum (principal); R19.7 Diarrhea, unspecified; D12.6 Benign neoplasm of colon, unspecified; M19.90 Unspecified osteoarthritis, unspecified site; J45.909 Unspecified asthma, uncomplicated; I44.7 Left bundle-branch block, unspecified; Z86.19 Personal history of other infectious and parasitic diseases; Z87.891 Personal history of nicotine dependence; Z88.0 Allergy status to penicillin; Z88.1 Allergy status to other antibiotic agents; Z88.2 Allergy status to sulfonamides; Z88.5 Allergy status to narcotic agent; Z88.8 Allergy status to other drugs, medicaments and biological substances; Z79.891 Long term (current) use of opiate analgesic; Z79.899 Other long term (current) drug therapy

== ENCOUNTER → 2020-12-30 | Outpatient (CLI) | payer BC ==
[~2020-12-30] MED LIST changes: -LIDOCAINE 2% 100MG/5ML SDV (FOR ANES.) As Ordered ONE; -NS 1,000 ML IV ONE; -SIMETHICONE 40MG/0.6ML DROPS 30ML As Ordered ONE; -propofoL 500 MG/50 ML VIAL As Ordered ONE
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
== END ==
LOC: M PAIN 09:00
PROVIDERS: ATTEND Nurse Practitioner Family
DX: G89.29 Other chronic pain (principal); M54.6 Pain in thoracic spine; Z79.891 Long term (current) use of opiate analgesic; Z87.891 Personal history of nicotine dependence; Z88.0 Allergy status to penicillin; Z88.2 Allergy status to sulfonamides; Z88.5 Allergy status to narcotic agent; Z88.1 Allergy status to other antibiotic agents; Z88.8 Allergy status to other drugs, medicaments and biological substances

== ENCOUNTER → 2021-02-11 | Outpatient (CLI) | payer BC, MEDICARE ==
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
== END ==
LOC: M PAIN 09:00
PROVIDERS: ATTEND Nurse Practitioner Family
DX: M54.2 Cervicalgia (principal); M54.6 Pain in thoracic spine; Z79.891 Long term (current) use of opiate analgesic; Z79.899 Other long term (current) drug therapy; Z87.891 Personal history of nicotine dependence; Z88.0 Allergy status to penicillin; Z88.2 Allergy status to sulfonamides; Z88.5 Allergy status to narcotic agent; Z88.8 Allergy status to other drugs, medicaments and biological substances; Z88.1 Allergy status to other antibiotic agents

== ENCOUNTER → 2021-03-27 | Outpatient (CLI) | payer BC, MEDICARE ==
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
== END ==
LOC: M PAIN 09:00
PROVIDERS: ATTEND Nurse Practitioner Family
DX: M54.2 Cervicalgia (principal); M54.6 Pain in thoracic spine; Z87.891 Personal history of nicotine dependence; Z79.891 Long term (current) use of opiate analgesic; Z79.899 Other long term (current) drug therapy; Z88.0 Allergy status to penicillin; Z88.1 Allergy status to other antibiotic agents; Z88.2 Allergy status to sulfonamides; Z88.5 Allergy status to narcotic agent; Z88.8 Allergy status to other drugs, medicaments and biological substances

== ENCOUNTER 2021-04-27 14:58 | Emergency (ER) | payer MEDICARE ==
[~2021-04-27] VITALS: Ht 160 cm; Wt 100.9 kg
[2021-04-27] MEDS ORDERED: TIZA4TAB4 PO (15:15)
[2021-04-27] MEDS ORDERED: ONDANSETRON 4MG/2ML VIAL IV ONE (15:45)
[2021-04-27] MEDS ORDERED: MORPHINE 2 MG/ML 1ML VIAL (J2270) IV PRN (15:45)
[2021-04-27 15:54] LABS: BASO # 0.1 10^3/uL (0.0-0.2); BASO % 0.7 % (0.0-1.0); EOS # 0.2 10^3/uL (0.0-0.5); EOS % 2.5 % (0.0-3.0); HEMATOCRIT 39.9 % (36.0-47.0); LYMPH # 3.7 10^3/uL (1.5-5.0); LYMPH % 42.5 % (24.0-44.0); MEAN CORPUSCULAR HEMOGLOBIN 30.4 pg (27.0-33.0); MEAN CORPUSCULAR HGB CONC 32.6 g/dl (32.0-36.5); MEAN CORPUSCULAR VOLUME 93.4 fl (80.0-96.0); MONO # 0.7 10^3/uL (0.0-0.8); MONO % 8.3 % (2.0-8.0); NEUTROPHILS % 45.7 % (36.0-66.0); PLATELET COUNT, AUTOMATED 359 10^3/uL (150-450); RED BLOOD COUNT 4.27 10^6/uL (4.00-5.40); WHITE BLOOD COUNT 8.8 10^3/uL (4.0-10.0)
[2021-04-27] MEDS ORDERED: GI COCKTAIL 50ML BTL(HYOSCYAMINE/MAALOX/LIDOCAINE VISCOUS)(1:3:1) PO ONE (15:55)
[2021-04-27 16:22] LABS: HCG, SERUM QUALITATIVE NEGATIVE (NEGATIVE)
[2021-04-27 16:28] LABS: ALBUMIN 3.7 GM/DL (3.2-5.2); ALT/SGPT 28 U/L (12-78); BILIRUBIN,DIRECT < 0.1 MG/DL (0.0-0.2); BILIRUBIN,TOTAL 0.3 MG/DL (0.2-1.0); BLOOD UREA NITROGEN 16 MG/DL (7-18); CALCIUM LEVEL 8.3 MG/DL (8.5-10.1); CARBON DIOXIDE LEVEL 29 MEQ/L (21-32); CHLORIDE LEVEL 106 MEQ/L (98-107); CK-MB VALUE MASS 1.4 NG/ML (<3.6); CPK CREATINE PHOSPHOKINASE 134 U/L (26-192); CREATININE FOR GFR 0.81 MG/DL (0.55-1.30); GLOMERULAR FILTRATION RATE > 60.0 (>58); GLUCOSE, FASTING 120 MG/DL (70-100); LIPASE 101 U/L (73-393); MB/CK RELATIVE INDEX 1.04 (< OR =4); POTASSIUM SERUM 3.9 MEQ/L (3.5-5.1); SODIUM LEVEL 141 MEQ/L (136-145); TOTAL PROTEIN 6.9 GM/DL (6.4-8.2); TROPONIN I < 0.02 NG/ML (< 0.10)
--- NOTE | 2021-04-27 16:47 | REP ---
INDICATION: CHEST PAIN. COMPARISON: None. FINDINGS: The technique utilized in obtaining the radiograph has magnified the cardiac silhouette and accentuated the interstitial markings. The superior mediastinal structures are midline. The cardiac silhouette is unremarkable in size, shape, and position. The diaphragmatic surfaces of the lungs are regular, and the costophrenic angles are clear. The pulmonary redmond are clear. The imaged osseous structures are intact. The tip of a dorsal column stimulator is approximately at the level of the superior endplate of T6. IMPRESSION: There is no acute cardiopulmonary disease. <Electronically signed by Denis Hall > 04/27/21 [id number]
[2021-04-27] MEDS ORDERED: ISOVUE-370 76% 100ML VIAL As Ordered ONE (16:49)
--- NOTE | 2021-04-27 18:50 | REPVR ---
PROCEDURE INFORMATION: Exam: CTA Chest With Contrast Exam date and time: 04/27/2021 5:03 PM Age: 40 years old Clinical indication: Pain; Angina pectoris; Additional info: Luq pain, radiates to left shoulder TECHNIQUE: Imaging protocol: Computed tomographic angiography of the chest with contrast. 3D rendering (Not supervised by radiologist): MIP and/or 3D reconstructed images were created by the technologist. Radiation optimization: All CT scans at this facility use at least one of these dose optimization techniques: automated exposure control; mA and/or kV adjustment per patient size (includes targeted exams where dose is matched to clinical indication); or iterative reconstruction. Contrast material: ISOVUE 370; Contrast volume: 100 ml; Contrast route: INTRAVENOUS (IV); COMPARISON: [place] PORTABLE CHEST X-RAY 04/27/2021 4:25 PM FINDINGS: Tubes, catheters and devices: Nerve stimulator wires are seen in the thoracic spinal canal. Pulmonary arteries: No pulmonary emboli. Aorta: Due to cardiac motion the ascending thoracic aorta is poorly evaluated. There is no evidence of dissection in the aortic arch or descending aorta. No aneurysmal dilatation. Lungs: There is a calcified granuloma anteriorly in the right middle lobe. No lung consolidation. Pleural spaces: No pleural effusion or pneumothorax. Heart: Unremarkable. No cardiomegaly. No pericardial effusion. Lymph nodes: No mediastinal or hilar lymphadenopathy. Bones/joints: Unremarkable. No acute fracture. Soft tissues: Unremarkable. IMPRESSION: The ascending aorta is not well assessed due to cardiac motion however there is no aneurysmal dilatation of the aortic arch or descending thoracic aorta or dissection. No evidence of pulmonary emboli or pneumonia. Electronically signed by: Zo Luther On 04/27/2021 18:50:21 PM
--- NOTE | 2021-04-27 18:57 | REPVR ---
PROCEDURE INFORMATION: Exam: CT Abdomen And Pelvis With Contrast Exam date and time: 04/27/2021 5:03 PM Age: 40 years old Clinical indication: Abdominal pain; Localized; Left upper quadrant (luq); Additional info: Luq pain, radiates to left shoulder TECHNIQUE: Imaging protocol: Computed tomography of the abdomen and pelvis with contrast. Radiation optimization: All CT scans at this facility use at least one of these dose optimization techniques: automated exposure control; mA and/or kV adjustment per patient size (includes targeted exams where dose is matched to clinical indication); or iterative reconstruction. Contrast material: ISOVUE 370; Contrast volume: 100 ml; Contrast route: INTRAVENOUS (IV); COMPARISON: CT ABD PELVIS W/O CONTRAST 09/30/2020 8:37 PM FINDINGS: Lungs: No lesions of the lung bases. Liver: There is a diffuse decrease in hepatic parenchymal density, consistent with fatty infiltration. Gallbladder and bile ducts: The gallbladder is contracted. No calculi are apparent. Pancreas: The pancreas is normal. Spleen: The spleen is unremarkable. Adrenal glands: The adrenal glands are unremarkable. Kidneys and ureters: The kidneys are unremarkable. Stomach and bowel: The stomach is distended. There is no evidence of intestinal obstruction. Appendix: The appendix is unremarkable. Intraperitoneal space: Unremarkable. No free air. No significant fluid collection. Vasculature: There is no evidence of an infrarenal abdominal aortic aneurysm. Lymph nodes: Unremarkable. No enlarged lymph nodes. Urinary bladder: The bladder is unremarkable. Reproductive: An IUD is seen within the uterus. Bones/joints: Marked sclerosis of the sacroiliac joints predominantly on the iliac side. Soft tissues: Nerve stimulator generator is seen in the subcutaneous fat of the right back with wires entering the spinal canal at the T12-L1 level. There is a fat-containing umbilical hernia. IMPRESSION: No acute findings in the abdomen or pelvis. Electronically signed by: Zo Luther On 04/27/2021 18:57:02 PM
[2021-04-27] MEDS ORDERED: OMEP40CA4 PO (19:27)
[2021-04-27] MEDS ORDERED: SUCR1TA PO (19:27)
[2021-04-27 19:48] VITALS: BP 128/68
--- NOTE | 2021-04-28 15:07 | ECGEPIP ---
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
== END 2021-04-27 19:50 | disposition home or self-care (01) ==
LOC: M ED 14:58
DX: K29.70 Gastritis, unspecified, without bleeding (principal); K22.4 Dyskinesia of esophagus; Z88.0 Allergy status to penicillin; Z88.8 Allergy status to other drugs, medicaments and biological substances; Z88.1 Allergy status to other antibiotic agents; Z88.2 Allergy status to sulfonamides; Z88.6 Allergy status to analgesic agent
CPT/HCPCS: 71045; 71275; 74177; 80048; 80076; 81001; 82550; 82553; 83690; 84484; 84703; 85025; 93005; 93041; 94760; 96374; 99285; J2270; J2405; Q9967

== ENCOUNTER → 2021-05-22 | Outpatient (CLI) | payer BC, MEDICARE ==
[~2021-05-22] MED LIST changes: +OMEP40CA4 PO; +SUCR1TA PO; +TIZA4TAB4 PO
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
== END ==
LOC: M PAIN 14:15
PROVIDERS: ATTEND Nurse Practitioner Family
DX: M54.2 Cervicalgia (principal); M54.6 Pain in thoracic spine; Z87.891 Personal history of nicotine dependence; Z79.891 Long term (current) use of opiate analgesic; Z79.899 Other long term (current) drug therapy; Z88.5 Allergy status to narcotic agent; Z88.0 Allergy status to penicillin; Z88.2 Allergy status to sulfonamides; Z88.1 Allergy status to other antibiotic agents; Z88.8 Allergy status to other drugs, medicaments and biological substances

== ENCOUNTER → 2021-06-06 | Outpatient (CLI) | payer BC, MEDICARE ==
--- NOTE | 2021-06-10 10:10 | REP ---
INDICATION: STATUS OF DCS. COMPARISON: None. TECHNIQUE: Multiple C-arm views thoracic region performed. FINDINGS: Dorsal column stimulator leads are present, the cephalic portion is in the midthoracic region. IMPRESSION: 24 seconds of fluoroscopy time was utilized. <Electronically signed by Coleman Mix > 06/10/21 1007
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
== END ==
LOC: M PAIN 11:15
PROVIDERS: ATTEND Anesthesiology
DX: M51.14 Intervertebral disc disorders with radiculopathy, thoracic region (principal); M50.10 Cervical disc disorder with radiculopathy, unspecified cervical region; Z79.891 Long term (current) use of opiate analgesic; Z79.899 Other long term (current) drug therapy; Z87.891 Personal history of nicotine dependence; Z88.5 Allergy status to narcotic agent; Z88.2 Allergy status to sulfonamides; Z88.1 Allergy status to other antibiotic agents; Z88.8 Allergy status to other drugs, medicaments and biological substances
CPT/HCPCS: 76000; G0463

== ENCOUNTER → 2021-06-19 | Outpatient (CLI) | payer BC, MEDICARE | LOC: M PAIN 14:45 | PROVIDERS: ATTEND Anesthesiology | DX: M54.6 Pain in thoracic spine (principal); M50.10 Cervical disc disorder with radiculopathy, unspecified cervical region; Z79.891 Long term (current) use of opiate analgesic; Z79.899 Other long term (current) drug therapy; Z87.891 Personal history of nicotine dependence; Z88.0 Allergy status to penicillin; Z88.1 Allergy status to other antibiotic agents; Z88.2 Allergy status to sulfonamides; Z88.5 Allergy status to narcotic agent; Z88.8 Allergy status to other drugs, medicaments and biological substances ==

== ENCOUNTER → 2021-06-27 | Outpatient (CLI) | payer BC, MEDICARE | LOC: M PAIN 09:00 | PROVIDERS: ATTEND Anesthesiology | DX: M54.6 Pain in thoracic spine (principal); M50.10 Cervical disc disorder with radiculopathy, unspecified cervical region; Z87.891 Personal history of nicotine dependence; Z79.891 Long term (current) use of opiate analgesic; Z79.899 Other long term (current) drug therapy; Z88.0 Allergy status to penicillin; Z88.1 Allergy status to other antibiotic agents; Z88.2 Allergy status to sulfonamides; Z88.8 Allergy status to other drugs, medicaments and biological substances; Z88.5 Allergy status to narcotic agent ==

== ENCOUNTER → 2021-07-01 | Outpatient (CLI) | payer MEDICARE | LOC: M PAIN 12:45 | PROVIDERS: ATTEND Anesthesiology | DX: M54.6 Pain in thoracic spine (principal); M50.10 Cervical disc disorder with radiculopathy, unspecified cervical region; Z87.891 Personal history of nicotine dependence; Z79.891 Long term (current) use of opiate analgesic; Z79.899 Other long term (current) drug therapy; Z88.0 Allergy status to penicillin; Z88.1 Allergy status to other antibiotic agents; Z88.2 Allergy status to sulfonamides; Z88.5 Allergy status to narcotic agent; Z88.8 Allergy status to other drugs, medicaments and biological substances ==

== ENCOUNTER → 2021-07-17 | Outpatient (CLI) | payer MEDICARE | LOC: M PAIN 10:15 | PROVIDERS: ATTEND Anesthesiology | DX: M54.6 Pain in thoracic spine (principal); M50.10 Cervical disc disorder with radiculopathy, unspecified cervical region; G89.29 Other chronic pain; Z96.89 Presence of other specified functional implants; Z87.891 Personal history of nicotine dependence; Z88.0 Allergy status to penicillin; Z88.1 Allergy status to other antibiotic agents; Z88.2 Allergy status to sulfonamides; Z88.5 Allergy status to narcotic agent; Z88.8 Allergy status to other drugs, medicaments and biological substances; E66.01 Morbid (severe) obesity due to excess calories; Z68.41 Body mass index [BMI] 40.0-44.9, adult; Z79.891 Long term (current) use of opiate analgesic; Z79.899 Other long term (current) drug therapy ==

== ENCOUNTER → 2021-09-19 | Outpatient (CLI) | payer MEDICARE | LOC: M PAIN 09:15 | PROVIDERS: ATTEND Anesthesiology | DX: M51.16 Intervertebral disc disorders with radiculopathy, lumbar region (principal); M79.10 Myalgia, unspecified site; M79.18 Myalgia, other site; Z79.891 Long term (current) use of opiate analgesic; Z79.899 Other long term (current) drug therapy; Z87.891 Personal history of nicotine dependence; Z88.0 Allergy status to penicillin; Z88.5 Allergy status to narcotic agent; Z88.1 Allergy status to other antibiotic agents; Z88.8 Allergy status to other drugs, medicaments and biological substances; Z88.2 Allergy status to sulfonamides ==

== ENCOUNTER → 2021-10-29 | Outpatient (CLI) | payer MEDICARE ==
[~2021-10-29] MED LIST changes: -FLUC150T; +FLUC150T9; +TIZA10TA PO; -TIZA4TAB4 PO
== END ==
LOC: M PAIN 13:00
PROVIDERS: ATTEND Nurse Practitioner Family
DX: M54.16 Radiculopathy, lumbar region (principal); M79.10 Myalgia, unspecified site; Z96.89 Presence of other specified functional implants; Z87.891 Personal history of nicotine dependence; Z88.0 Allergy status to penicillin; Z88.1 Allergy status to other antibiotic agents; Z88.2 Allergy status to sulfonamides; Z88.5 Allergy status to narcotic agent; Z88.6 Allergy status to analgesic agent; Z79.891 Long term (current) use of opiate analgesic; Z79.899 Other long term (current) drug therapy

== ENCOUNTER → 2021-11-24 | Outpatient (CLI) | payer MEDICARE ==
[~2021-11-24] MED LIST changes: +FLUC150T; -FLUC150T9
== END ==
LOC: M PAIN 14:45
PROVIDERS: ATTEND Anesthesiology
DX: M54.6 Pain in thoracic spine (principal); M50.10 Cervical disc disorder with radiculopathy, unspecified cervical region; Z79.899 Other long term (current) drug therapy; Z88.0 Allergy status to penicillin; Z88.1 Allergy status to other antibiotic agents; Z88.2 Allergy status to sulfonamides; Z88.5 Allergy status to narcotic agent; Z88.8 Allergy status to other drugs, medicaments and biological substances; Z79.891 Long term (current) use of opiate analgesic

== ENCOUNTER → 2021-12-02 | Outpatient (CLI) | payer MEDICARE | LOC: M PAIN 14:00 | PROVIDERS: ATTEND Anesthesiology | DX: M54.6 Pain in thoracic spine (principal); M50.10 Cervical disc disorder with radiculopathy, unspecified cervical region; Z87.891 Personal history of nicotine dependence; Z79.891 Long term (current) use of opiate analgesic; Z79.899 Other long term (current) drug therapy; Z88.0 Allergy status to penicillin; Z88.2 Allergy status to sulfonamides; Z88.1 Allergy status to other antibiotic agents; Z88.5 Allergy status to narcotic agent; Z88.8 Allergy status to other drugs, medicaments and biological substances ==

== ENCOUNTER → 2022-01-01 | Outpatient (CLI) | payer MEDICARE ==
[~2022-01-01] MED LIST changes: -FLUC150T; +FLUC150T9
== END ==
LOC: M PAIN 11:15
PROVIDERS: ATTEND Anesthesiology
DX: M50.10 Cervical disc disorder with radiculopathy, unspecified cervical region (principal); M54.2 Cervicalgia; Z79.891 Long term (current) use of opiate analgesic; Z87.891 Personal history of nicotine dependence; Z88.0 Allergy status to penicillin; Z88.1 Allergy status to other antibiotic agents; Z88.2 Allergy status to sulfonamides; Z88.5 Allergy status to narcotic agent; Z88.8 Allergy status to other drugs, medicaments and biological substances

== ENCOUNTER → 2022-01-14 | Outpatient (CLI) | payer MEDICARE | LOC: M PAIN 11:45 | PROVIDERS: ATTEND Anesthesiology | DX: M51.16 Intervertebral disc disorders with radiculopathy, lumbar region (principal); M54.2 Cervicalgia; Z87.891 Personal history of nicotine dependence; Z79.891 Long term (current) use of opiate analgesic; Z79.899 Other long term (current) drug therapy; Z88.0 Allergy status to penicillin; Z88.1 Allergy status to other antibiotic agents; Z88.5 Allergy status to narcotic agent; Z88.8 Allergy status to other drugs, medicaments and biological substances; Z88.2 Allergy status to sulfonamides ==

== ENCOUNTER → 2022-01-16 | Outpatient (CLI) | payer MEDICARE | LOC: M PAIN 10:45 | PROVIDERS: ATTEND Anesthesiology | DX: M51.16 Intervertebral disc disorders with radiculopathy, lumbar region (principal); Z88.0 Allergy status to penicillin; Z88.2 Allergy status to sulfonamides; Z88.1 Allergy status to other antibiotic agents; Z88.8 Allergy status to other drugs, medicaments and biological substances | CPT/HCPCS: 76000; G0463 ==

== ENCOUNTER → 2022-01-21 | Outpatient (CLI) | payer MEDICARE | LOC: M PAIN 14:15 | PROVIDERS: ATTEND Nurse Practitioner Family | DX: M51.17 Intervertebral disc disorders with radiculopathy, lumbosacral region (principal); G89.29 Other chronic pain; Z96.89 Presence of other specified functional implants; Z79.899 Other long term (current) drug therapy ==

== ENCOUNTER → 2022-03-27 | Outpatient (CLI) | payer MEDICARE | LOC: M PLARAD 11:37 | PROVIDERS: ATTEND Orthopaedic Surgery | DX: M47.816 Spondylosis without myelopathy or radiculopathy, lumbar region (principal); M50.30 Other cervical disc degeneration, unspecified cervical region; M48.02 Spinal stenosis, cervical region; M54.16 Radiculopathy, lumbar region ==

== ENCOUNTER → 2022-04-03 | Outpatient (CLI) | payer MEDICARE | LOC: M PLARAD 15:33 | PROVIDERS: ATTEND Orthopaedic Surgery | DX: M47.816 Spondylosis without myelopathy or radiculopathy, lumbar region (principal); M50.30 Other cervical disc degeneration, unspecified cervical region; M48.02 Spinal stenosis, cervical region; M54.16 Radiculopathy, lumbar region; M51.24 Other intervertebral disc displacement, thoracic region ==

== ENCOUNTER → 2022-04-22 | Outpatient (CLI) | payer MEDICARE | LOC: M PAIN 10:15 | PROVIDERS: ATTEND Anesthesiology | DX: M51.16 Intervertebral disc disorders with radiculopathy, lumbar region (principal); M50.10 Cervical disc disorder with radiculopathy, unspecified cervical region; M48.02 Spinal stenosis, cervical region; M51.24 Other intervertebral disc displacement, thoracic region; Z79.891 Long term (current) use of opiate analgesic; Z79.899 Other long term (current) drug therapy ==

== ENCOUNTER → 2022-09-23 | Outpatient (CLI) | payer MEDICARE | LOC: M PAIN 09:30 | PROVIDERS: ATTEND Anesthesiology | DX: M50.10 Cervical disc disorder with radiculopathy, unspecified cervical region (principal); M48.02 Spinal stenosis, cervical region; M51.14 Intervertebral disc disorders with radiculopathy, thoracic region; M54.50 Low back pain, unspecified; Z87.891 Personal history of nicotine dependence; Z79.891 Long term (current) use of opiate analgesic; Z79.899 Other long term (current) drug therapy; Z88.0 Allergy status to penicillin; Z88.2 Allergy status to sulfonamides; Z88.1 Allergy status to other antibiotic agents; Z88.8 Allergy status to other drugs, medicaments and biological substances; Z91.018 Allergy to other foods ==

== ENCOUNTER → 2022-10-12 | Outpatient (CLI) | payer MEDICARE | LOC: M PAIN 11:00 | PROVIDERS: ATTEND Nurse Practitioner Family | DX: M51.14 Intervertebral disc disorders with radiculopathy, thoracic region (principal); M50.10 Cervical disc disorder with radiculopathy, unspecified cervical region; M48.02 Spinal stenosis, cervical region; G89.29 Other chronic pain; J45.909 Unspecified asthma, uncomplicated; Z96.89 Presence of other specified functional implants; Z87.891 Personal history of nicotine dependence; Z88.0 Allergy status to penicillin; Z88.1 Allergy status to other antibiotic agents; Z88.2 Allergy status to sulfonamides; Z88.5 Allergy status to narcotic agent; Z88.8 Allergy status to other drugs, medicaments and biological substances; Z91.018 Allergy to other foods; E66.01 Morbid (severe) obesity due to excess calories; Z68.41 Body mass index [BMI] 40.0-44.9, adult; Z79.899 Other long term (current) drug therapy ==

== ENCOUNTER → 2022-11-11 | Outpatient (CLI) | payer MEDICARE | LOC: M PAIN 09:00 | PROVIDERS: ATTEND Anesthesiology | DX: M54.50 Low back pain, unspecified (principal); M51.16 Intervertebral disc disorders with radiculopathy, lumbar region; G89.29 Other chronic pain; Z96.89 Presence of other specified functional implants; Z87.891 Personal history of nicotine dependence; Z88.0 Allergy status to penicillin; Z88.1 Allergy status to other antibiotic agents; Z88.2 Allergy status to sulfonamides; Z88.5 Allergy status to narcotic agent; Z88.6 Allergy status to analgesic agent; Z91.018 Allergy to other foods; Z79.891 Long term (current) use of opiate analgesic; Z79.899 Other long term (current) drug therapy ==

== ENCOUNTER → 2022-11-23 | Outpatient (REF) | payer MEDICARE | LOC: M PLALAB 11:15 | PROVIDERS: ATTEND Nurse Practitioner Family | DX: Z12.4 Encounter for screening for malignant neoplasm of cervix (principal) | CPT/HCPCS: 87624; G0123 ==

== ENCOUNTER → 2022-11-23 | Outpatient (CLI) | payer MEDICARE | LOC: M WHC 11:19 | PROVIDERS: ATTEND Nurse Practitioner Family | DX: Z12.31 Encounter for screening mammogram for malignant neoplasm of breast (principal) ==

== ENCOUNTER → 2022-11-30 | Outpatient (CLI) | payer MEDICARE | LOC: M WHC 11:09 → M RAD 11:09 | PROVIDERS: ATTEND Nurse Practitioner Family | DX: F52.6 Dyspareunia not due to a substance or known physiological condition (principal); R10.2 Pelvic and perineal pain ==

== ENCOUNTER → 2022-12-07 | Outpatient (CLI) | payer MEDICARE | LOC: M PAIN 10:15 | PROVIDERS: ATTEND Nurse Practitioner Family | DX: M51.14 Intervertebral disc disorders with radiculopathy, thoracic region (principal); M51.16 Intervertebral disc disorders with radiculopathy, lumbar region; M50.10 Cervical disc disorder with radiculopathy, unspecified cervical region; G89.29 Other chronic pain; Z96.89 Presence of other specified functional implants; Z87.891 Personal history of nicotine dependence; Z88.0 Allergy status to penicillin; Z88.1 Allergy status to other antibiotic agents; Z88.2 Allergy status to sulfonamides; Z88.5 Allergy status to narcotic agent; Z88.6 Allergy status to analgesic agent; Z91.018 Allergy to other foods; E66.01 Morbid (severe) obesity due to excess calories; Z68.41 Body mass index [BMI] 40.0-44.9, adult; Z79.891 Long term (current) use of opiate analgesic; Z79.899 Other long term (current) drug therapy ==

== ENCOUNTER → 2023-02-12 | Outpatient (CLI) | payer MEDICARE | LOC: M PAIN 10:00 | PROVIDERS: ATTEND Nurse Practitioner Family | DX: M51.16 Intervertebral disc disorders with radiculopathy, lumbar region (principal); M50.10 Cervical disc disorder with radiculopathy, unspecified cervical region; Z87.891 Personal history of nicotine dependence; Z79.891 Long term (current) use of opiate analgesic; Z79.899 Other long term (current) drug therapy; Z88.0 Allergy status to penicillin; Z88.2 Allergy status to sulfonamides; Z88.5 Allergy status to narcotic agent; Z88.8 Allergy status to other drugs, medicaments and biological substances; Z91.018 Allergy to other foods ==

== ENCOUNTER → 2023-05-31 | Outpatient (REF) | payer MEDICARE ==
[~2023-05-31] MED LIST changes: +BELB150M PO; +CLIN150C17 PO; +DOXY100T27 PO; +HYDR-4517 PO
== END ==
LOC: M LAB REF 21:15
PROVIDERS: ATTEND Physician Assistant Medical
DX: N64.4 Mastodynia (principal)

== ENCOUNTER 2023-06-04 10:57 | Emergency (ER) | payer MEDICARE ==
[~2023-06-04] VITALS: Ht 160 cm; Wt 104.7 kg
[~2023-06-04 10:57] MED LIST changes: -BELB150M PO; -CLIN150C17 PO; -DOXY100T27 PO; -HYDR-4517 PO
[2023-06-04 11:02] VITALS: TEMP 97.8
[2023-06-04] MEDS ORDERED: CLIN150C17 PO (11:11)
[2023-06-04] MEDS ORDERED: BELB150M PO ×2 (11:11)
[2023-06-04] MEDS ORDERED: DOXY100T27 PO (11:11)
[2023-06-04] MEDS ORDERED: HYDR-4517 PO (11:11)
[2023-06-04] MEDS ORDERED: ACETAMINOPHEN 500 MG TAB PO ONE (11:45)
[2023-06-04] MEDS ORDERED: NS 1,000 ML IV ONE (11:45)
[2023-06-04 12:11] LABS: BASO % 0.6 % (0.0-1.0); EOS # 0.1 10^3/uL (0.0-0.5); EOS % 0.9 % (0.0-3.0); HEMATOCRIT 40.3 % (36.0-47.0); HEMOGLOBIN 13.4 g/dl (12.0-15.5); LYMPH # 2.6 10^3/uL (1.5-5.0); LYMPH % 39.3 % (24.0-44.0); MEAN CORPUSCULAR HEMOGLOBIN 30.1 pg (27.0-33.0); MEAN CORPUSCULAR HGB CONC 33.3 g/dl (32.0-36.5); MEAN CORPUSCULAR VOLUME 90.6 fl (80.0-96.0); MONO # 0.4 10^3/uL (0.0-0.8); MONO % 6.8 % (2.0-8.0); NEUTROPHILS # 3.4 10^3/uL (1.5-8.5); NEUTROPHILS % 52.1 % (36.0-66.0); PLATELET COUNT, AUTOMATED 349 10^3/uL (150-450); RED BLOOD COUNT 4.45 10^6/uL (4.00-5.40); WHITE BLOOD COUNT 6.5 10^3/uL (4.0-10.0)
[2023-06-04 12:40] LABS: BLOOD UREA NITROGEN 13 MG/DL (9-23); CALCIUM LEVEL 8.8 MG/DL (8.5-10.1); CARBON DIOXIDE LEVEL 26 MMOL/L (20-31); CHLORIDE LEVEL 105 MMOL/L (98-107); CREATININE FOR GFR 0.69 MG/DL (0.55-1.30); GLOMERULAR FILTRATION RATE > 60.0 (>58); GLUCOSE, FASTING 93 MG/DL (60-100); POTASSIUM SERUM 4.4 MMOL/L (3.5-5.1); SODIUM LEVEL 139 MMOL/L (136-145)
[2023-06-04 12:42] LABS: FREE T4 1.09 NG/DL (0.89-1.76); THYROID STIMULATING HORMONE 0.969 uIU/ML (0.55-4.78)
[2023-06-04 12:43] LABS: PROLACTIN 5.95 NG/ML
[2023-06-04 13:05] LABS: CPK CREATINE PHOSPHOKINASE 103 U/L (34-145)
[2023-06-04 13:41] VITALS: BP 158/70; O2SAT 99
== END 2023-06-04 13:55 | disposition home or self-care (01) ==
LOC: M ED 10:57
DX: N64.4 Mastodynia (principal); J45.909 Unspecified asthma, uncomplicated; M51.36 Other intervertebral disc degeneration, lumbar region; Z88.0 Allergy status to penicillin; Z88.2 Allergy status to sulfonamides; Z88.6 Allergy status to analgesic agent; Z88.1 Allergy status to other antibiotic agents; Z88.5 Allergy status to narcotic agent; Z79.899 Other long term (current) drug therapy

== ENCOUNTER → 2023-06-11 | Outpatient (CLI) | payer MEDICARE ==
[~2023-06-11] MED LIST changes: +BELB150M PO; +CLIN150C17 PO; +DOXY100T27 PO; +HYDR-4517 PO
== END ==
LOC: M PAIN 08:45
PROVIDERS: ATTEND Nurse Practitioner Family
DX: M51.16 Intervertebral disc disorders with radiculopathy, lumbar region (principal); M54.6 Pain in thoracic spine; G89.29 Other chronic pain; G43.909 Migraine, unspecified, not intractable, without status migrainosus; M72.0 Palmar fascial fibromatosis [Dupuytren]; Z87.891 Personal history of nicotine dependence; Z88.0 Allergy status to penicillin; Z88.1 Allergy status to other antibiotic agents; Z88.2 Allergy status to sulfonamides; Z88.8 Allergy status to other drugs, medicaments and biological substances; Z91.018 Allergy to other foods; Z79.891 Long term (current) use of opiate analgesic; Z79.899 Other long term (current) drug therapy

== ENCOUNTER 2023-06-29 20:31 | Emergency (ER) | payer MEDICARE ==
[~2023-06-29] VITALS: Ht 160 cm; Wt 105.4 kg
[2023-06-29 20:32] VITALS: BP 141/84; TEMP 99.5; O2SAT 98
== END 2023-06-29 21:14 | disposition left against medical advice (07) ==
LOC: M ED 20:31
DX: Z53.21 Procedure and treatment not carried out due to patient leaving prior to being seen by health care provider (principal)

== ENCOUNTER → 2023-06-30 | Outpatient (CLI) | payer MEDICARE | LOC: M PAIN 14:15 | PROVIDERS: ATTEND Anesthesiology | DX: M54.6 Pain in thoracic spine (principal); G43.709 Chronic migraine without aura, not intractable, without status migrainosus; Z96.89 Presence of other specified functional implants; Z87.891 Personal history of nicotine dependence; Z88.0 Allergy status to penicillin; Z88.1 Allergy status to other antibiotic agents; Z88.2 Allergy status to sulfonamides; Z88.8 Allergy status to other drugs, medicaments and biological substances; Z91.018 Allergy to other foods; E66.01 Morbid (severe) obesity due to excess calories; Z68.41 Body mass index [BMI] 40.0-44.9, adult; Z79.891 Long term (current) use of opiate analgesic; Z79.899 Other long term (current) drug therapy | CPT/HCPCS: 76000; G0463 ==

== ENCOUNTER → 2023-08-18 | Outpatient (CLI) | payer MEDICARE | LOC: M PAIN 10:00 | PROVIDERS: ATTEND Anesthesiology | DX: M51.16 Intervertebral disc disorders with radiculopathy, lumbar region (principal); M54.2 Cervicalgia; Z86.69 Personal history of other diseases of the nervous system and sense organs; Z96.89 Presence of other specified functional implants; Z87.891 Personal history of nicotine dependence; Z88.0 Allergy status to penicillin; Z88.1 Allergy status to other antibiotic agents; Z88.2 Allergy status to sulfonamides; Z88.8 Allergy status to other drugs, medicaments and biological substances; Z91.018 Allergy to other foods; E66.01 Morbid (severe) obesity due to excess calories; Z68.41 Body mass index [BMI] 40.0-44.9, adult; Z79.891 Long term (current) use of opiate analgesic; Z79.899 Other long term (current) drug therapy ==

== ENCOUNTER 2023-09-22 14:50 | Emergency (ER) | payer MEDICARE ==
[~2023-09-22] VITALS: Ht 157.5 cm; Wt 105.1 kg
[2023-09-22] MEDS ORDERED: KETOROLAC 30 MG/ML 1ML VIAL IV ONE (17:50)
[2023-09-22] MEDS ORDERED: NS 1,000 ML IV ONE (17:50)
[2023-09-22] MEDS ORDERED: ISOVUE-370 76% 100ML VIAL As Ordered ONE (18:20)
[2023-09-22 18:21] LABS: BASO % 0.4 % (0.0-1.0); EOS # 0.1 10^3/uL (0.0-0.5); EOS % 0.8 % (0.0-3.0); HEMATOCRIT 42.5 % (36.0-47.0); HEMOGLOBIN 13.9 g/dl (12.0-15.5); LYMPH # 4.4 10^3/uL (1.5-5.0); LYMPH % 39.9 % (24.0-44.0); MEAN CORPUSCULAR HEMOGLOBIN 29.8 pg (27.0-33.0); MEAN CORPUSCULAR HGB CONC 32.7 g/dl (32.0-36.5); MONO # 0.7 10^3/uL (0.0-0.8); MONO % 6.6 % (2.0-8.0); NEUTROPHILS # 5.7 10^3/uL (1.5-8.5); PLATELET COUNT, AUTOMATED 359 10^3/uL (150-450); RED BLOOD COUNT 4.67 10^6/uL (4.00-5.40); WHITE BLOOD COUNT 10.9 10^3/uL (4.0-10.0)
[2023-09-22 18:46] LABS: MONO REFLEX EBV COMP NEGATIVE (NEGATIVE)
[2023-09-22 19:15] LABS: ERYTHROCYTE SEDIMENTATION RATE 58 mm/hr (0-20)
[2023-09-22 21:10] VITALS: BP 138/74; TEMP 96.7; O2SAT 99
[2023-09-24 14:09] LABS: EBV VIRAL CAPSID AG IgG >600.0 U/mL (0.0-17.9); EBV VIRAL CAPSID AG IgM <36.0 U/mL (0.0-35.9)
== END 2023-09-22 21:31 | disposition home or self-care (01) ==
LOC: M ED 14:50
DX: M54.2 Cervicalgia (principal); M54.50 Low back pain, unspecified; J45.909 Unspecified asthma, uncomplicated; K21.9 Gastro-esophageal reflux disease without esophagitis; Z88.0 Allergy status to penicillin; Z88.1 Allergy status to other antibiotic agents; Z88.2 Allergy status to sulfonamides; Z88.5 Allergy status to narcotic agent
CPT/HCPCS: 70491; 71045; 80047; 84702; 85025; 85652; 86140; 86308; 86664; 86665; 96361; 96374; 99283; J1885; Q9967

== ENCOUNTER → 2023-12-02 | Outpatient (CLI) | payer MEDICARE | LOC: M PAIN 10:45 | PROVIDERS: ATTEND Nurse Practitioner Family | DX: M51.16 Intervertebral disc disorders with radiculopathy, lumbar region (principal); G43.709 Chronic migraine without aura, not intractable, without status migrainosus; G89.29 Other chronic pain; M72.0 Palmar fascial fibromatosis [Dupuytren]; Z87.891 Personal history of nicotine dependence; Z79.891 Long term (current) use of opiate analgesic; Z79.899 Other long term (current) drug therapy; Z88.0 Allergy status to penicillin; Z88.1 Allergy status to other antibiotic agents; Z88.2 Allergy status to sulfonamides; Z88.5 Allergy status to narcotic agent; Z88.8 Allergy status to other drugs, medicaments and biological substances; Z91.018 Allergy to other foods ==

== ENCOUNTER → 2024-01-18 | Outpatient (CLI) | payer MEDICARE | LOC: M PAIN 13:00 | PROVIDERS: ATTEND Anesthesiology | DX: M51.16 Intervertebral disc disorders with radiculopathy, lumbar region (principal); Z79.891 Long term (current) use of opiate analgesic; G89.29 Other chronic pain; Z87.891 Personal history of nicotine dependence; Z79.899 Other long term (current) drug therapy; Z88.0 Allergy status to penicillin; Z88.1 Allergy status to other antibiotic agents; Z88.2 Allergy status to sulfonamides; Z88.8 Allergy status to other drugs, medicaments and biological substances; Z91.018 Allergy to other foods ==

== ENCOUNTER → 2024-06-16 | Outpatient (CLI) | payer MEDICARE | LOC: M PAIN 08:30 | PROVIDERS: ATTEND Anesthesiology | DX: M50.10 Cervical disc disorder with radiculopathy, unspecified cervical region (principal); M48.02 Spinal stenosis, cervical region; M51.14 Intervertebral disc disorders with radiculopathy, thoracic region; M51.24 Other intervertebral disc displacement, thoracic region; M72.0 Palmar fascial fibromatosis [Dupuytren]; Z87.891 Personal history of nicotine dependence; Z79.84 Long term (current) use of oral hypoglycemic drugs; Z79.899 Other long term (current) drug therapy; Z79.891 Long term (current) use of opiate analgesic; Z88.0 Allergy status to penicillin; Z88.1 Allergy status to other antibiotic agents; Z88.2 Allergy status to sulfonamides; Z88.5 Allergy status to narcotic agent; Z88.8 Allergy status to other drugs, medicaments and biological substances; Z91.018 Allergy to other foods ==

== ENCOUNTER → 2024-07-07 | Outpatient (CLI) | payer MEDICARE | LOC: M PLARAD 09:07 | PROVIDERS: ATTEND Anesthesiology | DX: M50.10 Cervical disc disorder with radiculopathy, unspecified cervical region (principal) ==

== ENCOUNTER → 2024-07-17 | Outpatient (CLI) | payer MEDICARE | LOC: M PAIN 17:00 | PROVIDERS: ATTEND Nurse Practitioner Family | DX: M51.16 Intervertebral disc disorders with radiculopathy, lumbar region (principal); G89.29 Other chronic pain; Z79.891 Long term (current) use of opiate analgesic; M79.18 Myalgia, other site; M54.2 Cervicalgia; M54.6 Pain in thoracic spine; M72.0 Palmar fascial fibromatosis [Dupuytren]; Z87.891 Personal history of nicotine dependence; Z79.84 Long term (current) use of oral hypoglycemic drugs; Z79.899 Other long term (current) drug therapy ==

== ENCOUNTER → 2024-09-12 | Outpatient (CLI) | payer MEDICARE ==
[~2024-09-12] MED LIST changes: +GABA-1172; -GABA-282
== END ==
LOC: M PAIN 16:00
PROVIDERS: ATTEND Nurse Practitioner Family
DX: M51.16 Intervertebral disc disorders with radiculopathy, lumbar region (principal); Z79.891 Long term (current) use of opiate analgesic; G89.29 Other chronic pain; Z79.899 Other long term (current) drug therapy; Z79.84 Long term (current) use of oral hypoglycemic drugs; Z88.0 Allergy status to penicillin; Z88.2 Allergy status to sulfonamides; Z88.5 Allergy status to narcotic agent; Z88.1 Allergy status to other antibiotic agents; Z88.8 Allergy status to other drugs, medicaments and biological substances; Z91.018 Allergy to other foods

== ENCOUNTER → 2024-10-10 | Outpatient (CLI) | payer MEDICARE | LOC: M PAIN 17:15 | PROVIDERS: ATTEND Anesthesiology | DX: M54.12 Radiculopathy, cervical region (principal); M54.6 Pain in thoracic spine; M47.814 Spondylosis without myelopathy or radiculopathy, thoracic region; G43.909 Migraine, unspecified, not intractable, without status migrainosus; Z87.891 Personal history of nicotine dependence; Z79.84 Long term (current) use of oral hypoglycemic drugs; Z79.891 Long term (current) use of opiate analgesic; Z79.899 Other long term (current) drug therapy; Z88.0 Allergy status to penicillin; Z88.2 Allergy status to sulfonamides; Z88.1 Allergy status to other antibiotic agents; Z88.8 Allergy status to other drugs, medicaments and biological substances; Z91.018 Allergy to other foods ==

== ENCOUNTER → 2024-10-19 | Outpatient (CLI) | payer MEDICARE | LOC: M PAIN 14:00 | PROVIDERS: ATTEND Anesthesiology | DX: M54.6 Pain in thoracic spine (principal); M79.18 Myalgia, other site; G89.29 Other chronic pain; M72.0 Palmar fascial fibromatosis [Dupuytren]; M54.50 Low back pain, unspecified; Z87.891 Personal history of nicotine dependence; Z79.84 Long term (current) use of oral hypoglycemic drugs; Z79.891 Long term (current) use of opiate analgesic; Z79.899 Other long term (current) drug therapy ==

== ENCOUNTER → 2024-11-03 | Outpatient (CLI) | payer MEDICARE | LOC: M PLARAD 13:36 | PROVIDERS: ATTEND Nurse Practitioner Family | DX: M51.16 Intervertebral disc disorders with radiculopathy, lumbar region (principal) ==

== ENCOUNTER → 2024-11-06 | Outpatient (CLI) | payer MEDICARE | LOC: M PAIN 17:00 | PROVIDERS: ATTEND Nurse Practitioner Family | DX: M51.16 Intervertebral disc disorders with radiculopathy, lumbar region (principal); G89.29 Other chronic pain; Z79.84 Long term (current) use of oral hypoglycemic drugs; Z79.899 Other long term (current) drug therapy; Z87.891 Personal history of nicotine dependence; Z88.0 Allergy status to penicillin; Z88.1 Allergy status to other antibiotic agents; Z88.2 Allergy status to sulfonamides; Z88.5 Allergy status to narcotic agent; Z88.8 Allergy status to other drugs, medicaments and biological substances; Z91.018 Allergy to other foods; E66.01 Morbid (severe) obesity due to excess calories; Z68.41 Body mass index [BMI] 40.0-44.9, adult ==

== ENCOUNTER → 2025-02-21 | Outpatient (REF) | payer MEDICARE, OTHER ==
[~2025-02-21] MED LIST changes: +CARI-555 PO; -CARI1TAB7 PO
[2025-02-21 19:22] LABS: Trichomonas vaginalis (AMP) NOT DETECTED (NEGATIVE)
[2025-02-21 19:45] LABS: GC DNA AMPLIFICATION NEGATIVE (NEGATIVE)
== END ==
LOC: M SFHCWAGY 17:06
PROVIDERS: ATTEND Nurse Practitioner Family
DX: R10.2 Pelvic and perineal pain (principal); Z11.3 Encounter for screening for infections with a predominantly sexual mode of transmission

== ENCOUNTER → 2025-03-26 | Outpatient (CLI) | payer MEDICARE | LOC: M WHC 09:01 | PROVIDERS: ATTEND Nurse Practitioner Family | DX: R10.2 Pelvic and perineal pain (principal) ==

== ENCOUNTER → 2025-07-02 | Outpatient (CLI) | payer MEDICARE | LOC: M WHC 08:59 | PROVIDERS: ATTEND Nurse Practitioner Family | DX: Z12.31 Encounter for screening mammogram for malignant neoplasm of breast (principal) ==

== ENCOUNTER → 2025-07-20 | Outpatient (CLI) | payer MEDICARE, OTHER | LOC: M WHC 13:29 | PROVIDERS: ATTEND Nurse Practitioner Family | DX: N83.202 Unspecified ovarian cyst, left side (principal) ==